=== PATIENT | male | born 1965 | race Caucasian/White ===

== ENCOUNTER 2017-08-22 12:08 | Inpatient (IN) | payer OTHER ==
[~2017-08-22] VITALS: Ht 177.8 cm; Wt 99.8 kg
--- NOTE | 2017-08-22 12:30 | ED GENERAL ADULT ---
History of Present Illness General Chief Complaint: General Adult Stated Complaint: [facility], PT HAS CLL Source: patient, old records Exam Limitations: no limitations Vital Signs & Intake/Output Vital Signs & Intake/Output Vital Signs Date Time Temp Pulse Resp B/P B/P Pulse O2 O2 Flow FiO2 Mean Ox Delivery Rate 08/22 1455 99.1 70 18 138/91 100 Room Air 08/22 1440 98.2 74 16 123/74 100 Room Air 08/22 1308 Room Air 08/22 1214 97.6 85 17 121/77 96 Room Air Allergies Coded Allergies: NO KNOWN ALLERGIES (10/02/13) Reconcile Medications Atorvastatin Calcium 20 MG TABLET 1 TAB PO DAILY CHOLESTEROL (Reported) Losartan Potassium 50 MG TABLET 1 TAB PO DAILY HEART (Reported) Metoprolol Succinate 200 MG TAB.ER.24H 1 TAB PO DAILY HEART (Reported) Triage Note: SENT FROM [facility] BY MD COX FOR H/H .03/17. PER MD COX POSSIBLE HEMOLYTIC ANEMIA. WOULD LIKE STEROIDS STARTED AND TRANSFUSION. Triage Nurses Notes Reviewed? yes Onset: Abrupt Duration: week(s):, getting worse Timing: recent history Injury Environment: home No Modifying Factors: none HPI: 51-year-old male comes into the emergency room sent in by his oncologist Dr. abreu. Patient has a history of CLL. He's been increasingly weak and fatigued. Shortness of breath with any type of exertion. He went to be checked out and was found to be profoundly anemic. He denies any blood in his stool and reports that he checks in a regular basis. Denies any chest pain. Denies any fever chills vomiting. He was sent in for admission and further evaluation. (Haris Stanford) Past History Travel History Traveled to [place] past 21 day No Medical History Any Pertinent Medical History? see below for history Cardiovascular: hypertension, HYPERCHOLESTEROLEMIA Cancer(s): CLL Surgical History Surgical History: non-contributory Psychosocial History What is your primary language American Tobacco Use: Never used Daily Tobacco Use Amount/Type: =< 4 Cigarettes daily ETOH Use: occasional use Illicit Drug Use: denies illicit drug use Family History Hx Contributory? No (Haris Stanford) Review of Systems Review of Systems Constitutional: Reports: see HPI. EENTM: Reports: no symptoms. Respiratory: Reports: see HPI. Cardiovascular: Reports: no symptoms. GI: Reports: no symptoms. Genitourinary: Reports: no symptoms. Musculoskeletal: Reports: no symptoms. Skin: Reports: no symptoms. Neurological/Psychological: Reports: no symptoms. Hematologic/Endocrine: Reports: no symptoms. Immunologic/Allergic: Reports: no symptoms. All Other Systems: Reviewed and Negative (Haris Stanford) Physical Exam Physical Exam General Appearance: well developed/nourished, no apparent distress, alert, awake Head: atraumatic Eyes: Bilateral: normal appearance. Ears, Nose, Throat: normal ENT inspection, hearing grossly normal Neck: normal inspection Respiratory: normal breath sounds, no respiratory distress Cardiovascular: regular rate/rhythm Back: normal inspection Extremities: normal inspection Neurologic/Psych: awake, alert, oriented x 3 Skin: pallor Core Measures ACS in differential dx? No CVA/TIA Diagnosis: No Sepsis Present: No Sepsis Focused Exam Completed? No (Haris Stanford) Progress Differential Diagnoses I considered the following diagnoses in my evaluation of the patient: Hemolytic anemia, anemia of chronic disease, aplastic anemia, GI bleed, iron deficiency anemia, myelodysplastic syndrome Plan of Care: Orders Procedure Date/time Status HEPATIC FUNCTION PANEL 08/23 0600 Active HEPATITIS PANEL 08/23 0600 Active CBC WITHOUT DIFFERENTIAL 08/23 0600 Active CBC WITHOUT DIFFERENTIAL 08/23 0005 Active Heart Healthy Diet 08/22 D Active CULTURE,URINE 08/22 1549 Active SPECIMEN TO BE OBTAINED 08/22 1549 Active LOWER RESPIRATORY CULTURE 08/22 1549 Active BLOOD CULTURE 08/22 1549 Active Pathway - chart 08/22 1503 Active House Staff 08/22 1503 Active Patient Data 08/22 1439 Active ED Holding Orders 08/22 1408 Active Admit to inpatient 08/22 1408 Active Vital Signs 08/22 1408 Active Code Status 08/22 1408 Active BLOOD PRODUCT PICKUP 08/22 1405 Active LEUKOCYTE POOR (PACKED CELLS) 08/22 1336 Active Add-on Test (ER Only) 08/22 1254 Active TOTAL IRON BINDING CAPACITY 08/22 1232 Active RETICULOCYTE COUNT 08/22 1232 Complete LDH (LACT ACID DEHYDROGENASE) 08/22 1232 Active FOLIC ACID 08/22 1232 Active FERRITIN 08/22 1232 Active DIRECT BILIRUBIN 08/22 1232 Active VITAMIN B12 08/22 1232 Active EKG 08/22 1230 Active PARTIAL THROMBOPLASTIN TIME 08/22 1222 Complete PROTHROMBIN TIME 08/22 1222 Complete HAPTOGLOBIN 08/22 1217 Active COMPREHENSIVE METABOLIC PANEL 08/22 121 Active CBC WITHOUT DIFFERENTIAL 08/22 1216 Complete TYPE & SCREEN (NOT X-MATCH) 08/22 1216 Active Lab Add-on Test 08/22 UNK Active VTE Mechanical Prophylaxis 08/22 UNK Active Intake & Output 08/22 UNK Active Current Medications Sig/Sai Start time Last Medication Dose Stop Time Status Admin Atorvastatin Calcium 20 MG DAILY 08/23 1000 AC (Lipitor) Dexamethasone 4 MG DAILY 08/23 1000 AC (Decadron) Losartan Potassium 50 MG DAILY 08/23 1000 AC (Cozaar) Metoprolol Succinate 200 MG DAILY 08/22 1506 AC (Toprol Xl) Laboratory Tests 08/22/17 1232: Anion Gap 15, Estimated GFR > 60, BUN/Creatinine Ratio 13.3, Glucose 114 H, Calcium 9.1, TIBC 334, Ferritin Pending, Total Bilirubin 1.6 H, Direct Bilirubin 0.5 H, AST 68 H, ALT 92 H, Alkaline Phosphatase 223 H, Lactate Dehydrogenase 692 H, Total Protein 5.6 L, Albumin 4.0, Globulin 1.6 L, Albumin/Globulin Ratio 2.5 H, Vitamin B12 Pending, Folate Pending, PT 12.2, INR 1.16, APTT 26, CBC w Diff MAN DIFF ORDERED, RBC 1.62 L, MCV 86.0, MCH 29.9, MCHC 34.7, RDW 13.9, MPV 7.1 L, Gran % 44.4, Lymphocytes % 45.0, Monocytes % 8.6, Eosinophils % 1.7, Basophils % 0.3, Absolute Granulocytes 1.5, Segmented Neutrophils 38 L, Band Neutrophils 6 H, Absolute Lymphocytes 1.5, Lymphocytes 49, Monocytes 4, Absolute Monocytes 0.3, Eosinophils 1, Absolute Eosinophils 0.1 , Absolute Basophils 0, Metamyelocytes 1, Myelocytes 1 H, Platelet Estimate DECREASED, Poikilocytosis 2+, Anisocytosis 2+, Ovalocytes 1+, Retic Count 1.40 08/22/17 1222: Retic Count Cancelled 08/22/17 1217: Haptoglobin Pending, Flow Cytometry Specimen Pending Microbiology 08/22 1549 URINE ROUT: Urine Culture - COLB 08/22 1549 LOWER RESP: Respiratory Culture - COLB 08/22 1549 LOWER RESP: Gram Stain - COLB 08/22 1548 BLOOD: Blood Culture - COLB 08/22 1548 BLOOD: Blood Culture - COLB Initial ED EKG: normal sinus rhythm, rate (75) (Haris Stanford) Departure Departure Disposition: STILL A PATIENT Condition: Stable Clinical Impression Primary Impression: Symptomatic anemia Secondary Impressions: CLL (chronic lymphocytic leukemia) Referrals: Sanjuana CARDONA,Willam Gutierrez (PCP/Family) Departure Forms: Customer Survey General Discharge Information Admission Note Spoke With: Corrie AMAYA,Sonya Langston Documentation of Exam: Documentation of any treatments & extenuating circumstances including Concerns Regarding Discharge (functional status, medication knowledge or non-compliance, living conditions, etc.) that warrant an admission rather than observation: Patient will require multiple blood transfusions. Hematology oncology consultation. IV steroids. He will require further evaluation as to why he so profoundly anemic. (Haris Stanford) PA/FARM EQUIPMENT ENGINE MECHANIC Co-Sign Statement Statement: ED Attending supervision documentation- [x] I saw and evaluated the patient. I have also reviewed all the pertinent lab results and diagnostic results. I agree with the findings and the plan of care as documented in the PA's/FARM EQUIPMENT ENGINE MECHANIC's documentation. [] I have reviewed the ED Record and agree with the PA's/FARM EQUIPMENT ENGINE MECHANIC's documentation. [] Additions or exceptions (if any) to the PAs/FARM EQUIPMENT ENGINE MECHANIC's note and plan are summarized below: [] (Dejuan Alan DO) Critical Care Note Critical Care Note Critical Care Time: 30-74 min (45) (Haris Stanford)
[2017-08-22 12:56] LABS: ABSOLUTE BASOPHIL COUNT 0 /CUMM (0.0-0.2); ABSOLUTE EOSINOPHIL COUNT 0.1 /CUMM (0.0-0.7); ABSOLUTE MONOCYTE COUNT 0.3 /CUMM (0.10-0.60); BASOPHIL % 0.3 % (0.0-2.0)
[2017-08-22 13:01] LABS: ABSOLUTE GRANULOCYTE CT 1.5 /CUMM (1.4-6.5); ABSOLUTE LYMPH COUNT 1.5 /CUMM (1.2-3.4); EOSINOPHIL % 1.7 % (0-5); GRANULOCYTE % 44.4 % (42.2-75.2); MEAN CORPUSCULAR HGB 29.9 PG (27.0-31.0); MEAN CORPUSCULAR HGB CONC 34.7 G/DL (33.0-37.0); MEAN PLATELET VOLUME 7.1 FL (7.4-10.4); PLATELET COUNT 44 /CUMM (130-400); RBC DISTRIBUTION WIDTH 13.9 % (11.5-14.5); RED BLOOD CELL CT 1.62 /CUMM (4.70-6.10); WHITE BLOOD CELL COUNT 3.3 /CUMM (4.8-10.8)
[2017-08-22 13:03] LABS: PT 12.2 SEC (9.4-12.5); PTT 26 SEC (25-37)
[2017-08-22] MEDS ORDERED: LOSARTAN POTASS50 M1 PO (13:03)
[2017-08-22] MEDS ORDERED: METOPROLOL SUC200 M2 PO (13:03)
[2017-08-22] MEDS ORDERED: ATORVASTATIN CA20 M1 PO (13:03)
--- NOTE | 2017-08-22 14:41 | History & Physical ---
ManCarmella 08/22/17 1440: General Information and HPI MD Statement: I have seen and personally examined LAURITA AMIN and documented this H&P. The patient is a 51 year old M who presented with a patient stated chief complaint of []. Source of Information: patient Exam Limitations: no limitations History of Present Illness: Mr. Amin is a 51-year-old male w/ PMH of CLL, HTN, HLD, sent in by his oncologist Dr. Gibbons for increasingly weakness/fatigue. Patient complained of shortness of breath with any type of exertion. He went to be checked out and was found to be profoundly anemic at Hgb 4.7. Patient endorsed his fatigue and exertional dyspnea started about a month ago without known trigger of his memory , and had worsened over the past two weeks that everytime he got upstairs at home he became short of breath. Patient denied fever/night sweat/weight change, dietary/appetite/medication change, new exposure to chemicals/new house/ hazardous chemicals. Patient denied chest Pain/coughing up blood/Palpitation/ Abdominal pain, bowel movement/urinary abnormality/bloody stool/hematuria, or other skin/musculoskeletal/neurological disorders. Of note, patient was diagnosed of CLL 4 years ago, underwent routine chemo by oncologists at [facility] soon after diagnose, and since then was in remission. His stated that patient's Hgb was in 12-14 range from 06/2017. Allergies/Medications Allergies: Coded Allergies: NO KNOWN ALLERGIES (10/02/13) Home Med list Atorvastatin Calcium 20 MG TABLET 1 TAB PO DAILY CHOLESTEROL (Reported) Losartan Potassium 50 MG TABLET 1 TAB PO DAILY HEART (Reported) Metoprolol Succinate 200 MG TAB.ER.24H 1 TAB PO DAILY HEART (Reported) Past History Travel History Traveled to [place] past 21 day No Medical History Cardiovascular: hypertension, HYPERCHOLESTEROLEMIA Cancer(s): CLL Surgical History Surgical History: non-contributory Past Family/Social History Psychosocial History Smoking Status: Current Some Day Smoker ETOH Use: occasional use Illicit Drug Use: denies illicit drug use Review of Systems Review of Systems Constitutional: Reports: see HPI. Exam & Diagnostic Data Last 24 Hrs of Vital Signs/I&O Vital Signs Date Time Temp Pulse Resp B/P B/P Pulse O2 O2 Flow FiO2 Mean Ox Delivery Rate 08/22 1308 Room Air 08/22 1214 97.6 85 17 121/77 96 Room Air Intake & Output 08/22 1600 08/22 0800 08/22 0000 Intake Total Output Total Balance Patient 99.79 kg Weight Weight Reported by Patient Measurement Method Physical Exam General Appearance Alert, Oriented X3, Cooperative, No Acute Distress Skin Pallor HEENT Atraumatic, PERRLA Neck Supple, No JVD Lymphatic Palpable R Axillary lymphnode however non-tender and not firm Cardiovascular Regular Rate Lungs Clear to Auscultation, Normal Air Movement Abdomen Normal Bowel Sounds, Soft, No Tenderness Neurological Normal Speech, Strength at 5/5 X4 Ext Extremities No Cyanosis, No Edema, Normal Pulses Last 24 Hrs of Labs/Suhail: Laboratory Tests 08/22/17 1232: Anion Gap 15, Estimated GFR > 60, BUN/Creatinine Ratio 13.3, Glucose 114 H, Calcium 9.1, TIBC 334, Ferritin > 1000.0 H, Total Bilirubin 1.6 H, AST 68 H, ALT 92 H, Alkaline Phosphatase 223 H, Lactate Dehydrogenase 692 H, Total Protein 5.6 L, Albumin 4.0, Globulin 1.6 L, Albumin/Globulin Ratio 2.5 H, PT 12.2, INR 1.16, APTT 26, CBC w Diff MAN DIFF ORDERED, RBC 1.62 L, MCV 86.0, MCH 29.9, MCHC 34.7, RDW 13.9, MPV 7.1 L, Gran % 44.4, Lymphocytes % 45.0, Monocytes % 8.6, Eosinophils % 1.7, Basophils % 0.3, Absolute Granulocytes 1.5, Segmented Neutrophils 38 L, Band Neutrophils 6 H, Absolute Lymphocytes 1.5, Lymphocytes 49, Monocytes 4, Absolute Monocytes 0.3, Eosinophils 1, Absolute Eosinophils 0.1, Absolute Basophils 0, Metamyelocytes 1, Myelocytes 1 H, Platelet Estimate DECREASED, Poikilocytosis 2+, Anisocytosis 2+, Ovalocytes 1+, Retic Count 1.40 08/22/17 1222: Retic Count Cancelled 08/22/17 1217: Haptoglobin Pending Assessment/Plan Assessment: Mr. Amin is a 51-year-old male w/ PMH of CLL, HTN, HLD, sent in by his oncologist Dr. Gibbons for increasingly weakness/fatigue. Patient complained of shortness of breath with any type of exertion. He went to be checked out and was found to be profoundly anemic at Hgb 4.7. Patient endorsed his fatigue and exertional dyspnea started about a month ago without known trigger of his memory , and had worsened over the past two weeks that everytime he got upstairs at home he became short of breath. Patient denied fever/night sweat/weight change, dietary/appetite/medication change, new exposure to chemicals/new house/ hazardous chemicals. Patient denied chest Pain/coughing up blood/Palpitation/ Abdominal pain, bowel movement/urinary abnormality/bloody stool/hematuria, or other skin/musculoskeletal/neurological disorders. Of note, patient was diagnosed of CLL 4 years ago, underwent routine chemo by oncologists at [facility] soon after diagnose, and since then was in remission. His stated that patient's Hgb was in 12-14 range from 06/2017. On presentation: Vitals stable -CBC: WBC 3.3, RBC 1.62, H/H 4.9/14.0, PLT 44, Retic 1.40 -BMP: AST/ALT 68/92, ALkPhos 223, LDH 692, TBili 1.6, Direct Bili 0.5 -Misc: B12/Folate pending -EKG: Normal sinus rhythm without significant ST-T abnormalities. -Interventions in ER: Solumedrol 125mg Assessement: Mr. Amin is a 51-year-old male w/ PMH of CLL, HTN, HLD, sent in by his oncologist Dr. Gibbons for increasingly weakness/fatigue. Patient complained of shortness of breath with any type of exertion. He went to be checked out and was found to be profoundly anemic at Hgb 4.7. Patient's CBC showed pancytopenia with WBC 3.3, RBC 1.62, H/H 4.9/14.0, PLT 44, with retic count of 1.4 signaling no bone marrow stimulation, despite LDH was elevated to 692 which represented possible common complication of Autoimmune hemolytic anemia from CLL. Aplastic anemia with unclear etiology could also contribute to the pancytopenia. Patient currently had no signs of infection. Iron level WNL, pending B12/Folate. PT/INR WNL no sign of DIC. Patient's pancytopenia could be multifactorial including hemolytic anemia, and possibly other underlying disease. Problem list #Symptomatic Pancytopenia with unclear etiology #Transaminitis #Hx of HTN, HLD Plan - Admit to Gen Med - Continue PRBC 2U transfusion, target Hgb >7 - Recheck CBC tonight and in the AM - Continued home meds including Metoprolol, Losartan, Lipitor - Lab add-on including B12/Folate/Haptoglobin/hepatitis panel. - Pending Hemonc consult. - Panculture if spikes fever DVT prophylaxis ALPS Regular Diet Full Code As Ranked By This Provider Problem List: 1. CLL (chronic lymphocytic leukemia) 2. Symptomatic anemia Core Measures/Misc (03/20) Acute Coronary Syndrome ACS Diagnosis: No Congestive Heart Failure Congestive Heart Failure Diagnosis No Cerebrovascular Accident CVA/TIA Diagnosis: No VTE (View Protocol) VTE Risk Factors Age>40 No Mechanical VTE Prophylaxis d/t N/A MechProphylax Ordered No VTE Pharm Prophylaxis d/t NA PharmProphylax ordered Sepsis (View protocol) Sepsis Present: No Todd Aranda MD 08/22/17 1540: Resident Review Statement Resident Statement: examined this patient, discussed with university intern, agreed with university intern, discussed with family, reviewed EMR data (avail), discussed with nursing , discussed with case mgmt, reviewed images, amended to note Other Findings: 51-year-old male with past medical history of CLL in remission after chemo who follows Dr. Herberth Reyna, hypertension, hyperlipidemia, was sent in by his oncologist (Dr Kevin) to the emergency department after finding a low hemoglobin during office visit. According to the patient, he has been having gradual shortness of breath since a month, which worsened since past 2 weeks, which made him follow-up with his oncologist today, and was found to have severe anemia and was sent in to the ED. Patient denies any ongoing blood loss, black stool, hemodialysis, hematemesis, hematuria, bruises, joint swelling, trauma, fever, chills, sick contacts, abdominal pain, chest pain, palpitations, dizziness, lightheadedness, yellowish discoloration of skin, rashes, but admits to looking pale, and leg swelling that he has had it since a while. He is compliant with his medications, no new changes, offers no allergy history either. He did try herbal medication that also contain melatonin yesterday and 2 weeks prior to that but his history seems to have started much earlier than that. Vitals on presentation were stable, H&H was low at 4.9/14.0, leukopenia at 3.3, platelet low at 44, with 7 bands, reticulocyte count 1.4, LDH 692, total bilirubin 1.6, direct 0.5, AST/ALT 68/92, ALP 223, vitamin B12 and folate pending, PT 12.2/INR 1.16, APTT 26. No imaging done. EKG shows sinus rhythm, no signs of ischemia, arrhythmia, no tachycardia. Physical examination was significant for obese individual, not in distress, chest clear, didn't appreciate pallor, no jaundice either, border of liver was palpated 1 cm below right subcostal margin, and tip of spleen palpable on the left side, a small soft tissue lump/? Lymph node palpable over the right inguinal region, and rest of the examination within normal limits. He received 125 mg of IV Solu-Medrol in the ED and 2 units of PRBC has been ordered, currently ongoing the first one during the time of interview. He is to be admitted in the general medical floor for the management of following issues: #Acute severe symptomatic anemia, ? Cause Patient has features of pancytopenia, with inappropriate response to anemia given his vertex of 1.4, suggestive of some degree of bone marrow suppression. Also considering his total bilirubin of 1.6 with high LDH, he is likely having some degree of hemolysis. He is receiving 2 units of PRBC currently, after which we will check his H&H again with a target of 7 and transfuse if needed. He also received IV steroids in line of any autoimmune conditions, will continue steroids orally after talking to his oncologist. While considering the above differentials, we also need to make sure that the patient does not have any underlying infections that also could present as pancytopenia the ascending panculture. Of note, patient does not have any hemodynamic instability, signs of acute bleeding, or DIC. Hematology/oncology consultation placed, will follow recs. #Transaminitis, ?cause Looking back at his [place], he has had elevated liver enzymes in the past as well, not sure if this is entirely related to hemodialysis at this time. We will repeat the test tomorrow and also get hepatitis panel in the meantime. #Hypertension Will continue home medications #Hyperlipidemia We will continue home medication DVT prophylaxis mechanical only given his low platelet Heart healthy diet Full code. Malik Gaona 08/22/17 1540: Attending MD Review Statement Attending Statement Attending MD Statement: examined this patient, discuss w/resident/PA/SOCIOLOGY ADJUNCT INSTRUCTOR, agreed w/resident/PA/SOCIOLOGY ADJUNCT INSTRUCTOR, discussed with family, reviewed EMR data (avail), discussed with nursing, discussed with case mgmt, reviewed images, amended to note Attending Assessment/Plan: 51 o/m with pmh of cll, htn sent from hematology office after abnormal labs low hb with progressive fatigue and shortness of breath on exertion. Patient denies light headedness, fever, chills, no abdominal pain, no blood in stools, no cough , no lymphadenopathy, no recent travel. PE unremarkable, pale appearing male not in acute distress. Labs WBC 3.3 Hb 4.9/14.8 plt 44 Cr 1.2 BUN 16 INR 1.16 LDH 692 Bili 1.6 retics 1.4 ASSESSMENT AND PLAN 51 o/m with pmh of cll comes with symptomatic anemia with Pancytopenia and mild transaminitis with mild hyperbilirubinemia and normal retics. Patient admitted to inpatient medical serivces. Transfuse 1 unit of prbc, Consult hemtaology/ oncology. Panculture if spikes fever, PBS for blasts, vit b12 level and folate level, check serologies hep b and hep c. Avoid medications depress bone marrow function. gi/dvt prophyalxis full code.
--- NOTE | 2017-08-22 18:09 | Cons- Hematology ---
General Information and HPI Consulting Request Date of Consult: 08/22/17 Requested By: Malik Gaona MD Reason for Consult: Pancytopenia, CLL Source of Information: patient, old records Exam Limitations: no limitations History of Present Illness: Mr. Nichols is a 51-year-old male with CLL status post FCR therapy completed in February 2014 who presented to the hospital after being seen in clinic today. He was seen in clinic for follow-up for his CLL. He was noted to have severe fatigue and dyspnea with exertion for approximately 2 weeks. He has no new pain. He denies any significant chest pain. He denies any new lumps or bumps. His appetite is about the same. He has no fever or chills. He has no recent sickness. He denies any nausea or vomiting. He has no diarrhea. He feels generally well except for the fatigue and dyspnea with exertion. On presentation to the clinic today, he was noted to be pale. Blood work was obtained and revealed a hemoglobin of 4.9 with hematocrit of 40.3. Platelet count was 39,000. WBC was 3.6. His actual dysuria count was 1500. He had 1.9% immature granulocytes. Due to the dyspnea with exertion and pancytopenia, he was sent to the hospital for recent and management. On presentation to the hospital, blood work demonstrated WBC of 3.3, hemoglobin of 4.9, hematocrit of 40.0, and platelet count of 44,000. His creatinine was notable for 1.2. His bilirubin was 1.6. AST was 68. ALT was 92. Alk phosphatase was 223. LDH was 692. He had one metamyelocyte. Reticulocyte count was 1.4. He was given a dose of Solu-Medrol 125 mg. He was started on transfusion. He tolerated his first unit of packed RBC well without any symptoms. He has no fever or chills. He feels better currently. He is anxious about his overall diagnosis. Allergies/Medications Allergies: Coded Allergies: NO KNOWN ALLERGIES (10/02/13) Home Med List: Atorvastatin Calcium 20 MG TABLET 1 TAB PO DAILY CHOLESTEROL (Reported) Losartan Potassium 50 MG TABLET 1 TAB PO DAILY HEART (Reported) Metoprolol Succinate 200 MG TAB.ER.24H 1 TAB PO DAILY HEART (Reported) Current Medications: Current Medications Sig/Sai Start time Last Medication Dose Route Stop Time Status Admin Atorvastatin Calcium 20 MG DAILY 08/23 1000 AC PO Dexamethasone 4 MG DAILY 08/23 1000 AC PO Losartan Potassium 50 MG DAILY 08/23 1000 AC PO Methylprednisolone 0 .STK-MED ONE 08/22 1414 DC .ROUTE Methylprednisolone 125 MG ONCE ONE 08/22 1400 DC 08/22 IV 08/22 1401 1409 Metoprolol Succinate 200 MG DAILY 08/22 1506 AC PO Review of Systems Review of Systems Constitutional: Reports: malaise. Denies: chills, fever, weakness, unexplained weight loss. EENTM: Denies: blurred vision, double vision. Cardiovascular: Denies: chest pain, orthopena, palpitations. Respiratory: Reports: short of breath. GI: Denies: melena, bloody stool. Genitourinary: Denies: discharge, dysuria. Neurological/Psychological: Reports: anxiety. Denies: ataxia, confusion. Hematologic/Endocrine: Denies: bruising, bleeding. All Other Systems: Reviewed and Negative Past History Travel History Traveled to [place] past 21 day No Medical History Cardiovascular: hypertension, HYPERCHOLESTEROLEMIA Cancer(s): CLL Surgical History Surgical History: non-contributory Psychosocial History Smoking Status: Current Some Day Smoker ETOH Use: occasional use Illicit Drug Use: denies illicit drug use Exam & Diagnostic Data Vital Signs and I&O Vital Signs Date Time Temp Pulse Resp B/P B/P Pulse O2 O2 Flow FiO2 Mean Ox Delivery Rate 08/22 1745 98.9 77 16 126/82 100 Room Air 08/22 1455 99.1 70 18 138/91 100 Room Air 08/22 1440 98.2 74 16 123/74 100 Room Air 08/22 1308 Room Air 08/22 1214 97.6 85 17 121/77 96 Room Air Intake & Output 08/22 1600 08/22 0800 08/22 0000 Intake Total 500 Output Total Balance 500 Intake, Oral 500 Patient 99.79 kg Weight Weight Reported by Patient Measurement Method Physical Exam General Appearance: well developed/nourished, no apparent distress, alert, awake , anxious, comfortable, slightly pale Head: atraumatic, normal appearance Eyes: Bilateral: PERRL, EOMI. Ears, Nose, Throat: normal pharynx Neck: supple, full neck Respiratory: normal breath sounds, chest non-tender, no respiratory distress, quiet respiration Cardiovascular: regular rate/rhythm Gastrointestinal: normal bowel sounds, soft, non-tender, splenomegaly Extremities: no edema Neurologic/Psych: awake, alert, oriented x 3 Skin: normal color, warm/dry Last 48 Hours of Lab Results: Laboratory Tests 08/22 08/22 08/22 1232 1222 1217 Chemistry Sodium (137 - 145 mmol/L) 142 Potassium (3.5 - 5.1 mmol/L) 4.0 Chloride (98 - 107 mmol/L) 103 Carbon Dioxide (22 - 30 mmol/L) 24 Anion Gap (5 - 16) 15 BUN (9 - 20 mg/dL) 16 Creatinine (0.7 - 1.2 mg/dL) 1.2 Estimated GFR (>60 ml/min) > 60 BUN/Creatinine Ratio (7 - 25 %) 13.3 Glucose (65 - 99 mg/dL) 114 H Calcium (8.4 - 10.2 mg/dL) 9.1 TIBC (261 - 462 ug/dL) 334 Ferritin (17.9 - 464 ng/mL) Pending Total Bilirubin (0.2 - 1.3 mg/dL) 1.6 H Direct Bilirubin (< 0.4 mg/dL) 0.5 H AST (17 - 59 U/L) 68 H ALT (21 - 72 U/L) 92 H Alkaline Phosphatase (< 127 U/L) 223 H Lactate Dehydrogenase (313 - 618 U/L) 692 H Total Protein (6.3 - 8.2 g/dL) 5.6 L Albumin (3.5 - 5.0 g/dL) 4.0 Globulin (1.9 - 4.2 gm/dL) 1.6 L Albumin/Globulin Ratio (1.1 - 2.2 %) 2.5 H Vitamin B12 (239 - 931 pg/mL) Pending Folate (2.76 - 20.0 ng/mL) Pending Coagulation PT (9.4 - 12.5 SEC) 12.2 INR (0.90 - 1.17) 1.16 APTT (25 - 37 SEC) 26 Hematology CBC w Diff MAN DIFF ORDERED WBC (4.8 - 10.8 /CUMM) 3.3 L RBC (4.70 - 6.10 /CUMM) 1.62 L Hgb (14.0 - 18.0 G/DL) 4.9 *L Hct (42 - 52 %) 14.0 *L MCV (80.0 - 94.0 FL) 86.0 MCH (27.0 - 31.0 PG) 29.9 MCHC (33.0 - 37.0 G/DL) 34.7 RDW (11.5 - 14.5 %) 13.9 Plt Count (130 - 400 /CUMM) 44 L MPV (7.4 - 10.4 FL) 7.1 L Gran % (42.2 - 75.2 %) 44.4 Lymphocytes % (20.5 - 51.1 %) 45.0 Monocytes % (1.7 - 9.3 %) 8.6 Eosinophils % (0 - 5 %) 1.7 Basophils % (0.0 - 2.0 %) 0.3 Absolute Granulocytes (1.4 - 6.5 /CUMM) 1.5 Segmented Neutrophils (42.2 - 75.2 %) 38 L Band Neutrophils (0.0 - 5.0 %) 6 H Absolute Lymphocytes (1.2 - 3.4 /CUMM) 1.5 Lymphocytes (20.5 - 51.1 %) 49 Monocytes (1.7 - 9.3 %) 4 Absolute Monocytes (0.10 - 0.60 /CUMM) 0.3 Eosinophils (0 - 5.0 %) 1 Absolute Eosinophils (0.0 - 0.7 /CUMM) 0.1 Absolute Basophils (0.0 - 0.2 /CUMM) 0 Metamyelocytes (0.0 - 1.0 %) 1 Myelocytes (0 - 0 %) 1 H Platelet Estimate (ADEQUATE) DECREASED Poikilocytosis 2+ Anisocytosis 2+ Ovalocytes 1+ Retic Count (0.5 - 2.0 %) 1.40 Cancelled Haptoglobin Pending Miscellaneous Flow Cytometry Specimen Pending Assessment/Plan Assessment: Mr. Nichols is a 51-year-old with CLL status post FCR completed in February 2014 and in remission who presented today hospital after being seen in the cancer center clinic. He was noted to have severe anemia and thrombocytopenia. Overall, he had pancytopenia. Bloodwork demonstrated bilirubin of 1.6, creatinine of 1.2, slightly elevated AST and ALT, elevated alkaline phosphatase, elevated LDH, hemoglobin of 4.9, hematocrit of 14.0, plateletcount of 44,000, white count of 3300, and reticulocyte count of 1.4%. This suggests less likely a hemolytic process. One would expect the reticulocyte count to be elevated and elevated bilirubin. This may not be related to his CLL but a second process. I have recommended checking flow cytometry. This is pending for now. He is given 2 units of packed RBC and will be follow-up by bloodwork. He may need a bone marrow biopsy pending today blood work tomorrow. Patient is very anxious about bone marrow biopsy. It will be reasonable to obtain a CT scan of the chest, abdomen, and pelvis to further workup organomegaly, lymphadenopathy, and overall disease status. I have reviewed his peripheral blood smear and demonstrated no evidence of intracellular organism. He does have some rouleaux formation. He has decreased RBC. He should continue on the dexamethasone for now. 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 Although this is usually reported as rapidly increasing lymph nodes and WBC. His WBC is low at the moment. He may have a secondary marrow process. He has no signs or symptoms of infection. Bone marrow biopsy may be useful in this situration. Recommendations: Pancytopenia: -Transfuse with packed RBC 2 hemoglobin greater than 7.0 -Continue dexamethasone 40 mg daily -Obtain bone marrow biopsy if pancytopenia is persistent -Follow up flow cytometry -Follow up haptoglobin -Check EDGARD CLL: -Obtain CT scan of the chest/abdomen/pelvis with contrast Problem List: 1. CLL (chronic lymphocytic leukemia) 2. Symptomatic anemia 3. Pancytopenia Other Findings/Comments: Please call [phone] with any questions or concerns. Consult Acknowledgment - Thank you for your consult request.
[2017-08-22 19:00] VITALS: BP 122/78
[2017-08-22 20:00] VITALS: BP 125/88
--- NOTE | 2017-08-22 23:25 | CT SCAN REPORT ---
EXAMINATION: CT CHEST WITH CONTRAST CT ABDOMEN AND PELVIS WITH CONTRAST CLINICAL INFORMATION: Severe anemia. CLL COMPARISON: 10/11/2014 TECHNIQUE: Multidetector volumetric imaging was performed through the chest, abdomen and pelvis following the administration of 95 mL of Optiray 320 intravenous contrast. Sagittal and coronal reformatted images were obtained on the technologist's workstation. Axial MIP volume rendering provided. DLP: 972 mGy-cm. FINDINGS: CHEST: Lungs: The central airways are patent. Minimal reticular opacity at the right base favoring atelectasis. No dense consolidation. No pneumothorax. No pleural effusion. Mediastinum: The heart is at the upper limit of normal in size. Coronary artery calcifications are present. There is diffuse mediastinal, hilar, and peribronchial lymphadenopathy. This is significantly increased from prior. For instance, a subcarinal node measures 2.9 x 1.8 cm on series 2 image 32. Chest Wall/Axilla: Extensive bilateral axillary lymphadenopathy. This is significantly increased from prior. Extensive supraclavicular adenopathy extending into the neck. For instance a right axillary node measures 4.6 x 2.9 cm on series 2 image 18. ABDOMEN/PELVIS: Liver, Gallbladder, Biliary Tree: The liver is normal in size, shape, and attenuation. No focal hepatic lesion or biliary ductal dilatation is present. The gallbladder is unremarkable with no evidence of radiopaque gallstones, gallbladder wall thickening, or pericholecystic inflammatory changes. Pancreas: Unremarkable. Spleen: The spleen is enlarged, measuring 17 cm in AP dimension, compared to 13.8 cm on prior. It measures 15 cm in CC dimension. No focal splenic parenchymal lesion. Adrenal Glands: Unremarkable. Kidneys and Ureters: The kidneys are normal in size, shape, and attenuation. No hydronephrosis, hydroureter or calculi seen. No perinephric stranding. Bladder: Mass effect upon the bladder by bulky pelvic adenopathy. No focal bladder wall abnormality. Gastrointestinal Tract: The stomach is unremarkable. The small bowel is normal in caliber. No obstruction. No colonic wall thickening or inflammatory change. Colonic diverticulosis without diverticulitis. The appendix is unremarkable. Abdominal Wall: No hernia is demonstrated. Lymphovascular Structures: Lymph nodes: There is diffuse increased lymphadenopathy. Bulky retroperitoneal and central mesenteric adenopathy is noted. Prominent pelvic sidewall lymph nodes. For instance, there is a right iliac chain node which measures 5 x 3 cm. This contributes to the deformity of the bladder. Vascular: Unremarkable. Pelvic Viscera: The prostate and seminal vesicles are unremarkable. OSSEOUS STRUCTURES: No suspicious sclerotic or lytic bone lesions are identified. IMPRESSION: Extensive lymphadenopathy which is increased from prior. This is seen throughout the course of the study, extending from the supraclavicular region through the inguinal regions. The appearance is suspicious for lymphoma. Mild splenomegaly.
[2017-08-23 00:59] LABS: ABSOLUTE BASOPHIL COUNT 0 /CUMM (0.0-0.2); ABSOLUTE EOSINOPHIL COUNT 0 /CUMM (0.0-0.7); ABSOLUTE MONOCYTE COUNT 0.2 /CUMM (0.10-0.60); MEAN CORPUSCULAR HGB 29.8 PG (27.0-31.0)
[2017-08-23 01:11] LABS: ABSOLUTE GRANULOCYTE CT 2.8 /CUMM (1.4-6.5); BASOPHIL % 0.3 % (0.0-2.0); EOSINOPHIL % 0.8 % (0-5); GRANULOCYTE % 47.1 % (42.2-75.2); MEAN CORPUSCULAR HGB CONC 34.6 G/DL (33.0-37.0); MEAN CORPUSCULAR VOLUME 86.2 FL (80.0-94.0); MEAN PLATELET VOLUME 7.6 FL (7.4-10.4); PLATELET COUNT 52 /CUMM (130-400); RBC DISTRIBUTION WIDTH 14.2 % (11.5-14.5)
[2017-08-23 01:15] LABS: RED BLOOD CELL CT 2.19 /CUMM (4.70-6.10)
[2017-08-23 01:17] LABS: HEMATOCRIT 18.9 % (42-52)
[2017-08-23 02:45] VITALS: BP 126/84
[2017-08-23 03:15] VITALS: BP 128/88
[2017-08-23 06:20] VITALS: BP 130/84
[2017-08-23 07:51] LABS: ABSOLUTE BASOPHIL COUNT 0 /CUMM (0.0-0.2); ABSOLUTE EOSINOPHIL COUNT 0 /CUMM (0.0-0.7); ABSOLUTE GRANULOCYTE CT 2.8 /CUMM (1.4-6.5); ABSOLUTE LYMPH COUNT 2.7 /CUMM (1.2-3.4); ABSOLUTE MONOCYTE COUNT 0.4 /CUMM (0.10-0.60); BASOPHIL % 0.3 % (0.0-2.0); EOSINOPHIL % 0.3 % (0-5); GRANULOCYTE % 47.2 % (42.2-75.2); MEAN CORPUSCULAR HGB 30.2 PG (27.0-31.0); MEAN CORPUSCULAR HGB CONC 34.8 G/DL (33.0-37.0); MEAN PLATELET VOLUME 7.2 FL (7.4-10.4); PLATELET COUNT 48 /CUMM (130-400); RBC DISTRIBUTION WIDTH 14.3 % (11.5-14.5); RED BLOOD CELL CT 2.14 /CUMM (4.70-6.10); WHITE BLOOD CELL COUNT 5.9 /CUMM (4.8-10.8)
--- NOTE | 2017-08-23 08:00 | PN- Housestaff ---
Carmella Man Ovidio Romulo 08/23/17 0800: Subjective Follow-up For: #Symptomatic Pancytopenia with unclear etiology #Hx of CLL #Extensive Lymphadenopathy #Transaminitis #Hx of HTN, HLD Subjective: No overnight event. Patient was seen by Dr. Gibbons this morning as well and acknowledged the CT results. Offered no complaint of SOB/lightheadedness, and could walk around without dyspnea, but was concerned about the potential bone/ lymphnode biopsy procedures. Review of Systems Constitutional: Reports: see HPI. Objective Last 24 Hrs of Vital Signs/I&O Vital Signs Date Time Temp Pulse Resp B/P B/P Pulse O2 O2 Flow FiO2 Mean Ox Delivery Rate 08/23 0833 68 130/84 08/23 0832 68 130/84 08/23 0620 98.3 68 20 130/84 96 Room Air 08/22 2000 98.7 76 18 125/88 100 Room Air 08/22 1900 99.3 78 48 122/78 98 Room Air 08/22 1819 98.7 69 17 123/84 97 Room Air 08/22 1757 77 126/84 08/22 1745 98.9 77 16 126/82 100 Room Air 08/22 1455 99.1 70 18 138/91 100 Room Air 08/22 1440 98.2 74 16 123/74 100 Room Air 08/22 1308 Room Air 08/22 1214 97.6 85 17 121/77 96 Room Air Intake & Output 08/23 1600 08/23 0800 08/23 0000 Intake Total 350 Output Total Balance 350 Intake, Oral 350 Patient 99.79 kg Weight Weight Reported by Patient Measurement Method Physical Exam General Appearance: Alert, Oriented X3, Cooperative, No Acute Distress Lymphatic: R axillary prominent lymph node soft and enlarged Cardiovascular: Regular Rate Lungs: Clear to Auscultation, Normal Air Movement Abdomen: Soft, No Tenderness Current Medications: Current Medications Sig/Sai Start time Last Medication Dose Route Stop Time Status Admin Atorvastatin Calcium 20 MG DAILY 08/23 1000 AC 08/23 PO 0833 Dexamethasone 4 MG DAILY 08/23 1000 CAN PO Dexamethasone 40 MG DAILY 08/23 1000 AC PO Dexamethasone 4 MG DAILY 08/23 1000 DC PO Influenza Virus 0.5 ML ONCE ONE 08/22 1929 DC Vaccine IM 08/22 1930 Losartan Potassium 50 MG DAILY 08/23 1000 AC 08/23 PO 0833 Methylprednisolone 0 .STK-MED ONE 08/22 1414 DC .ROUTE Methylprednisolone 125 MG ONCE ONE 08/22 1400 DC 08/22 IV 08/22 1401 1409 Metoprolol Succinate 200 MG DAILY 08/22 1506 AC 08/23 PO 0832 Last 24 Hrs of Lab/Suhail Results Last 24 Hrs of Labs/Mics: Laboratory Tests 08/23/17 0844: CBC w Diff Pending, WBC Pending, RBC Pending, Hgb Pending, Hct Pending, MCV Pending, MCH Pending, MCHC Pending, RDW Pending, Plt Count Pending, MPV Pending 08/23/17 0705: Total Bilirubin 1.4 H, Direct Bilirubin 0.3, AST 38, ALT 65, Alkaline Phosphatase 177 H, Total Protein 4.7 L, Albumin 3.5, CBC w Diff MAN DIFF ORDERED, RBC 2.14 L, MCV 87.0, MCH 30.2, MCHC 34.8, RDW 14.3, MPV 7.2 L, Gran % 47.2, Lymphocytes % 45.0, Monocytes % 7.2, Eosinophils % 0.3, Basophils % 0.3, Absolute Granulocytes 2.8, Segmented Neutrophils 50, Band Neutrophils 4, Absolute Lymphocytes 2.7, Lymphocytes 42, Absolute Monocytes 0.4, Eosinophils 1, Absolute Eosinophils 0, Basophils 1, Absolute Basophils 0, Metamyelocytes 2 H, Platelet Estimate DECREASED, Normocytic RBCs VERIFIED, Normochromic RBCs VERIFIED, Hepatitis A IgM Ab Pending, Hep Bs Antigen Pending, Hep B Core IgM Ab Conf Pending, Hepatitis C Antibody Pending 08/23/17 0015: CBC w Diff NO MAN DIFF REQ, RBC 2.19 L, MCV 86.2, MCH 29.8, MCHC 34.6, RDW 14.2 , MPV 7.6, Gran % 47.1, Lymphocytes % 49.2, Monocytes % 2.6, Eosinophils % 0.8, Basophils % 0.3, Absolute Granulocytes 2.8, Absolute Lymphocytes 3.0, Absolute Monocytes 0.2, Absolute Eosinophils 0, Absolute Basophils 0 08/22/17 1232: Anion Gap 15, Estimated GFR > 60, BUN/Creatinine Ratio 13.3, Glucose 114 H, Calcium 9.1, TIBC 334, Ferritin 1160.0 H, Total Bilirubin 1.6 H, Direct Bilirubin 0.5 H, AST 68 H, ALT 92 H, Alkaline Phosphatase 223 H, Lactate Dehydrogenase 692 H, Total Protein 5.6 L, Albumin 4.0, Globulin 1.6 L, Albumin/Globulin Ratio 2.5 H, Vitamin B12 618, Folate 15.0, PT 12.2, INR 1.16, APTT 26, CBC w Diff MAN DIFF ORDERED, RBC 1.62 L, MCV 86.0, MCH 29.9, MCHC 34.7 , RDW 13.9, MPV 7.1 L, Gran % 44.4, Lymphocytes % 45.0, Monocytes % 8.6, Eosinophils % 1.7, Basophils % 0.3, Absolute Granulocytes 1.5, Segmented Neutrophils 38 L, Band Neutrophils 6 H, Absolute Lymphocytes 1.5, Lymphocytes 49, Monocytes 4, Absolute Monocytes 0.3, Eosinophils 1, Absolute Eosinophils 0.1 , Absolute Basophils 0, Metamyelocytes 1, Myelocytes 1 H, Platelet Estimate DECREASED, Poikilocytosis 2+, Anisocytosis 2+, Ovalocytes 1+, Retic Count 1.40 08/22/17 1222: Retic Count Cancelled 08/22/17 1217: Haptoglobin Pending, Flow Cytometry Specimen Pending Microbiology 08/22 2355 URINE ROUT: Urine Culture - RECD 08/22 1549 LOWER RESP: Respiratory Culture - COLB 08/22 1549 LOWER RESP: Gram Stain - COLB Assessment/Plan Assessment: Mr. Nichols is a 51-year-old male w/ PMH of CLL, HTN, HLD, sent in by his oncologist Dr. Gibbons for increasingly weakness/fatigue. Patient complained of shortness of breath with any type of exertion. He went to be checked out and was found to be profoundly anemic at Hgb 4.7. Patient endorsed his fatigue and exertional dyspnea started about a month ago without known trigger of his memory , and had worsened over the past two weeks that everytime he got upstairs at home he became short of breath. Patient denied fever/night sweat/weight change, dietary/appetite/medication change, new exposure to chemicals/new house/ hazardous chemicals. Patient denied chest Pain/coughing up blood/Palpitation/ Abdominal pain, bowel movement/urinary abnormality/bloody stool/hematuria, or other skin/musculoskeletal/neurological disorders. Of note, patient was diagnosed of CLL 4 years ago, underwent routine chemo by oncologists at [facility] soon after diagnose, and since then was in remission. His stated that patient's Hgb was in 12-14 range from 06/2017. On presentation: Vitals stable -CBC: WBC 3.3, RBC 1.62, H/H 4.9/14.0, PLT 44, Retic 1.40 -BMP: AST/ALT 68/92, ALkPhos 223, LDH 692, TBili 1.6, Direct Bili 0.5 -Misc: B12/Folate pending -EKG: Normal sinus rhythm without significant ST-T abnormalities. -Interventions in ER: Solumedrol 125mg Assessement: Mr. Nichols is a 51-year-old male w/ PMH of CLL, HTN, HLD, sent in by his oncologist Dr. Gibbons for increasingly weakness/fatigue. Patient complained of shortness of breath with any type of exertion. He went to be checked out and was found to be profoundly anemic at Hgb 4.7. Patient's CBC showed pancytopenia with WBC 3.3, RBC 1.62, H/H 4.9/14.0, PLT 44, with retic count of 1.4 signaling no bone marrow stimulation, despite LDH was elevated to 692 which represented possible common complication of Autoimmune hemolytic anemia from CLL. Aplastic anemia with unclear etiology could also contribute to the pancytopenia. Patient currently had no signs of infection. Iron level WNL, pending B12/Folate. PT/INR WNL no sign of DIC. Patient's pancytopenia could be multifactorial including hemolytic anemia, and possibly other underlying disease. Problem list #Symptomatic Pancytopenia with unclear etiology - Hgb on admission 4.7 -> 6.5 on latest lab s/p PRBC transfusion 3U. #Hx of CLL - Appreciated Hemonc consult however would pursue on bone/lymphnode biopsy as below #Extensive Lymphadenopathy - CT Chest/Ab/Pelvis 08/22: Extensive lymphadenopathy which is increased from prior. This is seen throughout the course of the study, extending from the supraclavicular region through the inguinal regions. The appearance is suspicious for lymphoma. Mild splenomegaly. - Will proceed with IR guided R axillary Lymp Node Core biopsy + Bone marrow biopsy. - Pending Haptoglobin #Transaminitis - Pending Hepatitis panel #Hx of HTN, HLD - Continued home meds including Metoprolol, Losartan, Lipitor - Panculture if spikes fever DVT prophylaxis ALPS Regular Diet Full Code Problem List: 1. Diffuse lymphadenopathy 2. CLL (chronic lymphocytic leukemia) 3. Pancytopenia Pain Ratin Pain Location: NA Pain Goal: Remain pain free Pain Plan: see AP Tomorrow's Labs & Rationales: CBC/BEP Malik Gaona 08/23/17 1121: Attending MD Review Statement Attending Statement Attending MD Statement: examined this patient, discuss w/resident/PA/HEAVY LIFT RIGGER, agreed w/resident/PA/HEAVY LIFT RIGGER, discussed with family, reviewed EMR data (avail), discussed with nursing, discussed with case mgmt, reviewed images, amended to note Attending Assessment/Plan: 51 o/m with pmh of cll, htn sent from hematology office after abnormal labs low hb with progressive fatigue and shortness of breath on exertion. Patient denies light headedness, fever, chills, no abdominal pain, no blood in stools, no cough , no lymphadenopathy, no recent travel. PE unremarkable, pale appearing male not in acute distress. Patient seen/examined bedside. denies any new complaints. hb better today CT abd/pelvis with lymphadenopathy increased burden. ASSESSMENT AND PLAN 51 o/m with pmh of cll comes with symptomatic anemia with Pancytopenia and mild transaminitis with mild hyperbilirubinemia and normal retics. Patient admitted to inpatient medical serivces. Transfused 2 unit of prbc, f/u hemtaology/ oncology. Plan for IR guided bone marrow biopsy /LN biopsy. Panculture if spikes fever, Avoid medications depress bone marrow function. gi/dvt prophyalxis full code.
--- NOTE | 2017-08-23 08:04 | PN- Hematology ---
Subjective Subjective: He feels better this morning. He has more energy. He has no fever ro chills. He has no nausea or vomiting. He denies any diarrhea. Review of Systems Constitutional: Denies: chills, fever, weakness. Cardiovascular: Denies: chest pain. Gastrointestinal: Denies: abdominal pain. Musculoskeletal: Denies: back pain. Neurological/Psychological: Denies: anxiety, confusion. All Other Systems: Reviewed and Negative Objective Vital Signs and I&Os Vital Signs Date Time Temp Pulse Resp B/P B/P Pulse O2 O2 Flow FiO2 Mean Ox Delivery Rate 08/23 0620 98.3 68 20 130/84 96 Room Air 08/22 2000 98.7 76 18 125/88 100 Room Air 08/22 1900 99.3 78 48 122/78 98 Room Air 08/22 1819 98.7 69 17 123/84 97 Room Air 08/22 1757 77 126/84 08/22 1745 98.9 77 16 126/82 100 Room Air 08/22 1455 99.1 70 18 138/91 100 Room Air 08/22 1440 98.2 74 16 123/74 100 Room Air 08/22 1308 Room Air 08/22 1214 97.6 85 17 121/77 96 Room Air Intake & Output 08/23 0800 08/23 0000 08/22 1600 08/22 0800 08/22 0000 08/21 1600 Intake Total 350 500 Output Total Balance 350 500 Intake, Oral 350 500 Patient 99.79 kg 99.79 kg Weight Weight Reported by Patient Reported by Patient Measurement Method Physical Exam General Appearance: well developed/nourished, no apparent distress, alert, awake , comfortable Head: atraumatic, normal appearance Ears, Nose, Throat: normal pharynx Neck: fullness in neck Respiratory: normal breath sounds, chest non-tender, no respiratory distress, lungs clear Cardiovascular: regular rate/rhythm Abdomen: normal bowel sounds, soft, non-tender Back: normal inspection Extremities: normal inspection Neurologic/Psychiatric: awake, alert, oriented x 3, normal gait, normal mood/ affect Skin: normal color Lymphatic: right axilla adenopathy Current Medications: Current Medications Sig/Sai Start time Last Medication Dose Route Stop Time Status Admin Atorvastatin Calcium 20 MG DAILY 08/23 1000 AC PO Dexamethasone 4 MG DAILY 08/23 1000 AC PO Influenza Virus 0.5 ML ONCE ONE 08/22 1929 DC Vaccine IM 08/22 Losartan Potassium 50 MG DAILY 08/23 1000 AC PO Methylprednisolone 0 .STK-MED ONE 08/22 1414 DC .ROUTE Methylprednisolone 125 MG ONCE ONE 08/22 1400 DC 08/22 IV 08/22 1401 1409 Metoprolol Succinate 200 MG DAILY 08/22 1506 AC 08/22 PO 1757 Results Last 24 Hours of Lab Results: Laboratory Tests 08/23 08/23 0705 0015 Chemistry Total Bilirubin Pending Direct Bilirubin Pending AST Pending ALT Pending Alkaline Phosphatase Pending Total Protein Pending Albumin Pending Hematology CBC w Diff Pending NO MAN DIFF REQ WBC (4.8 - 10.8 /CUMM) Pending 6.0 RBC (4.70 - 6.10 /CUMM) Pending 2.19 L Hgb (14.0 - 18.0 G/DL) Pending 6.5 *L Hct (42 - 52 %) Pending 18.9 *L MCV (80.0 - 94.0 FL) Pending 86.2 MCH (27.0 - 31.0 PG) Pending 29.8 MCHC (33.0 - 37.0 G/DL) Pending 34.6 RDW (11.5 - 14.5 %) Pending 14.2 Plt Count (130 - 400 /CUMM) Pending 52 L MPV (7.4 - 10.4 FL) Pending 7.6 Gran % (42.2 - 75.2 %) 47.1 Lymphocytes % (20.5 - 51.1 %) 49.2 Monocytes % (1.7 - 9.3 %) 2.6 Eosinophils % (0 - 5 %) 0.8 Basophils % (0.0 - 2.0 %) 0.3 Absolute Granulocytes (1.4 - 6.5 /CUMM) 2.8 Absolute Lymphocytes (1.2 - 3.4 /CUMM) 3.0 Absolute Monocytes (0.10 - 0.60 /CUMM) 0.2 Absolute Eosinophils (0.0 - 0.7 /CUMM) 0 Absolute Basophils (0.0 - 0.2 /CUMM) 0 Serology Hepatitis A IgM Ab Pending Hep Bs Antigen Pending Hep B Core IgM Ab Conf Pending Hepatitis C Antibody Pending 08/22 08/22 08/22 1232 1222 1217 Chemistry Sodium (137 - 145 mmol/L) 142 Potassium (3.5 - 5.1 mmol/L) 4.0 Chloride (98 - 107 mmol/L) 103 Carbon Dioxide (22 - 30 mmol/L) 24 Anion Gap (5 - 16) 15 BUN (9 - 20 mg/dL) 16 Creatinine (0.7 - 1.2 mg/dL) 1.2 Estimated GFR (>60 ml/min) > 60 BUN/Creatinine Ratio (7 - 25 %) 13.3 Glucose (65 - 99 mg/dL) 114 H Calcium (8.4 - 10.2 mg/dL) 9.1 TIBC (261 - 462 ug/dL) 334 Ferritin (17.9 - 464 ng/mL) 1160.0 H Total Bilirubin (0.2 - 1.3 mg/dL) 1.6 H Direct Bilirubin (< 0.4 mg/dL) 0.5 H AST (17 - 59 U/L) 68 H ALT (21 - 72 U/L) 92 H Alkaline Phosphatase (< 127 U/L) 223 H Lactate Dehydrogenase (313 - 618 U/L) 692 H Total Protein (6.3 - 8.2 g/dL) 5.6 L Albumin (3.5 - 5.0 g/dL) 4.0 Globulin (1.9 - 4.2 gm/dL) 1.6 L Albumin/Globulin Ratio (1.1 - 2.2 %) 2.5 H Vitamin B12 (239 - 931 pg/mL) 618 Folate (2.76 - 20.0 ng/mL) 15.0 Coagulation PT (9.4 - 12.5 SEC) 12.2 INR (0.90 - 1.17) 1.16 APTT (25 - 37 SEC) 26 Hematology CBC w Diff MAN DIFF ORDERED WBC (4.8 - 10.8 /CUMM) 3.3 L RBC (4.70 - 6.10 /CUMM) 1.62 L Hgb (14.0 - 18.0 G/DL) 4.9 *L Hct (42 - 52 %) 14.0 *L MCV (80.0 - 94.0 FL) 86.0 MCH (27.0 - 31.0 PG) 29.9 MCHC (33.0 - 37.0 G/DL) 34.7 RDW (11.5 - 14.5 %) 13.9 Plt Count (130 - 400 /CUMM) 44 L MPV (7.4 - 10.4 FL) 7.1 L Gran % (42.2 - 75.2 %) 44.4 Lymphocytes % (20.5 - 51.1 %) 45.0 Monocytes % (1.7 - 9.3 %) 8.6 Eosinophils % (0 - 5 %) 1.7 Basophils % (0.0 - 2.0 %) 0.3 Absolute Granulocytes (1.4 - 6.5 /CUMM) 1.5 Segmented Neutrophils (42.2 - 75.2 %) 38 L Band Neutrophils (0.0 - 5.0 %) 6 H Absolute Lymphocytes (1.2 - 3.4 /CUMM) 1.5 Lymphocytes (20.5 - 51.1 %) 49 Monocytes (1.7 - 9.3 %) 4 Absolute Monocytes (0.10 - 0.60 /CUMM) 0.3 Eosinophils (0 - 5.0 %) 1 Absolute Eosinophils (0.0 - 0.7 /CUMM) 0.1 Absolute Basophils (0.0 - 0.2 /CUMM) 0 Metamyelocytes (0.0 - 1.0 %) 1 Myelocytes (0 - 0 %) 1 H Platelet Estimate (ADEQUATE) DECREASED Poikilocytosis 2+ Anisocytosis 2+ Ovalocytes 1+ Retic Count (0.5 - 2.0 %) 1.40 Cancelled Haptoglobin Pending Miscellaneous Flow Cytometry Specimen Pending Recent Imaging Studies: CT chest/abdomen/pelvis 08/22/2017: CHEST: Lungs: The central airways are patent. Minimal reticular opacity at the right base favoring atelectasis. No dense consolidation. No pneumothorax. No pleural effusion. Mediastinum: The heart is at the upper limit of normal in size. Coronary artery calcifications are present. There is diffuse mediastinal, hilar, and peribronchial lymphadenopathy. This is significantly increased from prior. For instance, a subcarinal node measures 2.9 x 1.8 cm on series 2 image 32. Chest Wall/Axilla: Extensive bilateral axillary lymphadenopathy. This is significantly increased from prior. Extensive supraclavicular adenopathy extending into the neck. For instance a right axillary node measures 4.6 x 2.9 cm on series 2 image 18. ABDOMEN/PELVIS: Liver, Gallbladder, Biliary Tree: The liver is normal in size, shape, and attenuation. No focal hepatic lesion or biliary ductal dilatation is present. The gallbladder is unremarkable with no evidence of radiopaque gallstones, gallbladder wall thickening, or pericholecystic inflammatory changes. Pancreas: Unremarkable. Spleen: The spleen is enlarged, measuring 17 cm in AP dimension, compared to 13.8 cm on prior. It measures 15 cm in CC dimension. No focal splenic parenchymal lesion. Adrenal Glands: Unremarkable. Kidneys and Ureters: The kidneys are normal in size, shape, and attenuation. No hydronephrosis, hydroureter or calculi seen. No perinephric stranding. Bladder: Mass effect upon the bladder by bulky pelvic adenopathy. No focal bladder wall abnormality. Gastrointestinal Tract: The stomach is unremarkable. The small bowel is normal in caliber. No obstruction. No colonic wall thickening or inflammatory change. Colonic diverticulosis without diverticulitis. The appendix is unremarkable. Abdominal Wall: No hernia is demonstrated. Lymphovascular Structures: Lymph nodes: There is diffuse increased lymphadenopathy. Bulky retroperitoneal and central mesenteric adenopathy is noted. Prominent pelvic sidewall lymph nodes. For instance, there is a right iliac chain node which measures 5 x 3 cm. This contributes to the deformity of the bladder. Vascular: Unremarkable. Pelvic Viscera: The prostate and seminal vesicles are unremarkable. OSSEOUS STRUCTURES: No suspicious sclerotic or lytic bone lesions are identified. IMPRESSION: Extensive lymphadenopathy which is increased from prior. This is seen throughout the course of the study, extending from the supraclavicular region through the inguinal regions. The appearance is suspicious for lymphoma. Mild splenomegaly. Assessment/Plan Hematology Assessment/Recommendations: Mr. Nichols is a 51-year-old with CLL status post FCR completed in February 2014 and in remission who presented today hospital after being seen in the cancer center. He was noted to have severe anemia and thrombocytopenia. He has new pancytopenia. Bloodwork demonstrated bilirubin of 1.6, creatinine of 1.2, slightly elevated AST and ALT, elevated alkaline phosphatase, elevated LDH, hemoglobin of 4.9, hematocrit of 14.0, plateletcount of 44,000, white count of 3300, and reticulocyte count of 1.4%. This is less likely a hemolytic process. It is concerning for progression of CLL versus transformation to new aggressive lymphoma (Santaan's transformation). CT scan demonstrated diffuse adenopathy. He will need lymph node biopsy and bone marrow biopsy. Ideally, he would need excisional biopsy of the lymph node but multiple core biopsies would be appropriate for the lymph node sample for now. Bone marrow biopsy would help with the diagnosis of the pancytopenia. He may be continued on steroid for now. Pancytopenia is improving and is likely due to transfusion and steroid. Dexamethasone is use in the treatment of lymphoma/CLL. Pancytopenia: -Goal hemoglobin >7 -Continue dexamethasone 40 mg daily -Obtain bone marrow biopsy -Obtain multiple core biopsy of lymph node (right axilla as the biggest and easiest) -Follow up flow cytometry CLL with diffuse adenopathy -further work up as above -will need chemotherapy as outpatient Please call [phone] with any questions or concerns. Problem List: 1. CLL (chronic lymphocytic leukemia) 2. Symptomatic anemia 3. Pancytopenia 4. Diffuse lymphadenopathy
[2017-08-23 08:29] LABS: HEMATOCRIT 18.6 % (42-52)
[2017-08-23 09:25] LABS: ABSOLUTE BASOPHIL COUNT 0 /CUMM (0.0-0.2); ABSOLUTE EOSINOPHIL COUNT 0 /CUMM (0.0-0.7); ABSOLUTE GRANULOCYTE CT 3.3 /CUMM (1.4-6.5); ABSOLUTE LYMPH COUNT 3.4 /CUMM (1.2-3.4); ABSOLUTE MONOCYTE COUNT 0.3 /CUMM (0.10-0.60); BASOPHIL % 0.2 % (0.0-2.0); EOSINOPHIL % 0.4 % (0-5); MEAN CORPUSCULAR HGB 29.7 PG (27.0-31.0); MEAN CORPUSCULAR HGB CONC 33.6 G/DL (33.0-37.0); MEAN CORPUSCULAR VOLUME 88.2 FL (80.0-94.0); MEAN PLATELET VOLUME 6.8 FL (7.4-10.4); PLATELET COUNT 56 /CUMM (130-400); RBC DISTRIBUTION WIDTH 13.8 % (11.5-14.5); RED BLOOD CELL CT 2.38 /CUMM (4.70-6.10); WHITE BLOOD CELL COUNT 7.1 /CUMM (4.8-10.8)
--- NOTE | 2017-08-23 15:04 | Patient Discharge Instructions ---
Discharge Instructions General Discharge Information You were seen/treated for: #Symptomatic Pancytopenia #Hx of CLL #Extensive Lymphadenopathy #Transaminitis #Hx of HTN, HLD Special Instructions: - Please follow up with your oncologist Dr. Reyna within 1-2 week of discharge for your biopsy results. - Please follow up with your primary care physician within 1-2 week of discharge. Inform your primary care physician of this admission to [facility]. - Continue your current medications per discharge instructions. - Please watch for these problems: Fever, Chills, Nausea, Vomiting, Shortness of Breath, Productive Cough, Chest Pain/Discomfort, Abdominal Pain, Active Bleeding or Bloody urine/stool. Diet Continue normal diet: Yes Activity Full Activity/No Limits: Yes Acute Coronary Syndrome Inclusion Criteria At DC or during hospital stay patient has or had the following: ACS DIAGNOSIS No Discharge Core Measures Meds if any: Prescribed or Continued at Discharge Meds if any: NOT Prescribed or Continued at Discharge Congestive Heart Failure Inclusion Criteria At DC or during hospital stay patient has or had the following: CHF DIAGNOSIS No Discharge Core Measures Meds if any: Prescribed or Continued at Discharge Meds if any: NOT Prescribed or Continued at Discharge Cerebrovascular accident Inclusion Criteria At DC or during hospital stay patient has or had the following: CVA/TIA Diagnosis No Discharge Core Measures Meds if any: Prescribed or Continued at Discharge Meds if any: NOT Prescribed or Continued at Discharge Venous thromboembolism Inclusion Criteria VTE Diagnosis No VTE Type NONE VTE Confirmed by (Test) NONE Discharge Core Measures - Per Current guidelines, there needs to be overlap - treatment for the first 5 days of Warfarin therapy. - If discharged on Warfarin prior to 5 days of - overlap therapy, the patient will need to be - assessed for post discharge needs including - *Post discharge parental anticoagulation - *Warfarin and/or parental anticoagulation education - *Follow up date to check INR post discharge At least 5 days overlap therapy as Inpatient No Meds if any: Prescribed or Continued at Discharge Note: Overlap Therapy is Warfarin and Anticoagulant Meds if any: NOT Prescribed or Continued at Discharge
--- NOTE | 2017-08-23 15:05 | Discharge Summary ---
Visit Information Visit Dates Admission Date: 08/22/17 Discharge Date: 08/24/2017 Hospital Course Course Attending Physician: Malik Gaona MD Primary Care Physician: Willam Garcia Hospital Course: Mr. Nichols is a 51-year-old male w/ PMH of CLL, HTN, HLD, sent in by his oncologist Dr. Gibbons for increasingly weakness/fatigue. Patient complained of shortness of breath with any type of exertion. He went to be checked out and was found to be profoundly anemic at Hgb 4.7. Patient endorsed his fatigue and exertional dyspnea started about a month ago without known trigger of his memory , and had worsened over the past two weeks that everytime he got upstairs at home he became short of breath. Patient denied fever/night sweat/weight change, dietary/appetite/medication change, new exposure to chemicals/new house/ hazardous chemicals. Patient denied chest Pain/coughing up blood/Palpitation/ Abdominal pain, bowel movement/urinary abnormality/bloody stool/hematuria, or other skin/musculoskeletal/neurological disorders. Of note, patient was diagnosed of CLL 4 years ago, underwent routine chemo by oncologists at [facility] soon after diagnose, and since then was in remission. His stated that patient's Hgb was in 12-14 range from 06/2017. On presentation: Vitals stable -CBC: WBC 3.3, RBC 1.62, H/H 4.9/14.0, PLT 44, Retic 1.40 -BMP: AST/ALT 68/92, ALkPhos 223, LDH 692, TBili 1.6, Direct Bili 0.5 -Misc: B12/Folate pending -EKG: Normal sinus rhythm without significant ST-T abnormalities. -Interventions in ER: Solumedrol 125mg Assessement: Mr. Nichols is a 51-year-old male w/ PMH of CLL, HTN, HLD, sent in by his oncologist Dr. Gibbons for increasingly weakness/fatigue. Patient complained of shortness of breath with any type of exertion. He went to be checked out and was found to be profoundly anemic at Hgb 4.7. Patient's CBC showed pancytopenia with WBC 3.3, RBC 1.62, H/H 4.9/14.0, PLT 44, with retic count of 1.4 signaling no bone marrow stimulation, despite LDH was elevated to 692 which represented possible common complication of Autoimmune hemolytic anemia from CLL. Aplastic anemia with unclear etiology could also contribute to the pancytopenia. Patient currently had no signs of infection. Iron level WNL, pending B12/Folate. PT/INR WNL no sign of DIC. Patient's pancytopenia could be multifactorial including hemolytic anemia, and possibly other underlying disease. Problem list #Symptomatic Pancytopenia with unclear etiology Patient's Hgb on admission 4.7 -> 6.5 -> 7.1, (stable per Residential Designer) on latest lab s/p PRBC transfusion 3U, and stablized. Patient's symptoms including SOB on exertion had improved prior discharge. #Hx of CLL Patient's oncologist Dr. Reyna was consulted. Patient's anemia may have a CLL component including hemolysis with elevated LDH, however a more likelly cause of transformation to new aggressive lymphoma (Santana's transformation). Patient underwent bone marrow and right auxillary lymph nodes biopsy and will follow up results in outpatient. #Extensive Lymphadenopathy Patient underwent CT Chest/Ab/Pelvis on 08/22 that showed Extensive lymphadenopathy which is increased from prior. This is seen throughout the course of the study, extending from the supraclavicular region through the inguinal regions. The appearance is suspicious for lymphoma. Mild splenomegaly. Patient underwent bone marrow and right auxillary lymph nodes biopsy and will follow up results in outpatient. #Transaminitis On admission, patient's AST/ALT 68/92, trended down 38/65. Will monitor outpatient. #Hx of HTN, HLD Patient was continued on home meds including Metoprolol, Losartan, Lipitor. DVT prophylaxis ALPS only given his low platelet count. Regular Diet Full Code Allergies: Coded Allergies: NO KNOWN ALLERGIES (10/02/13) Significant Procedures: SERVICE DATE: 08/23/17- EXAM TYPE: CAT - CT BONE BIOPSY; CT SOFT TISSUE BIOPSY IMPRESSION: 1. Bone marrow aspirate and core bone biopsies performed of the posterior left iliac tuberosity using the Thismoment system under CT fluoroscopic guidance. 2. Multiple 18 gauge core needle biopsies performed of an enlarged right axillary lymph node under CT fluoroscopic guidance. Pertinent Lab Results: SERVICE DATE: 08/22/17- EXAM TYPE: CAT - CT ABD & PELVIS W IV CONTRAST; CT CHEST W IV CONTRAST IMPRESSION: Extensive lymphadenopathy which is increased from prior. This is seen throughout the course of the study, extending from the supraclavicular region through the inguinal regions. The appearance is suspicious for lymphoma. Mild splenomegaly. Disposition Summary Disposition Principal Diagnosis: #Symptomatic Pancytopenia #Hx of CLL #Extensive Lymphadenopathy #Transaminitis #Hx of HTN, HLD Additional Diagnosis: As above Discharge Disposition: home or self care Discharge Instructions General Discharge Information Code Status: Full Code Patient's Diet: Regular Patient's Activity: As tolerated Follow-Up Instructions/Appts: - Please follow up with your oncologist Dr. Reyna within 1-2 week of discharge for your biopsy results. - Please follow up with your primary care physician within 1-2 week of discharge. Inform your primary care physician of this admission to [facility]. - Continue your current medications per discharge instructions. - Please watch for these problems: Fever, Chills, Nausea, Vomiting, Shortness of Breath, Productive Cough, Chest Pain/Discomfort, Abdominal Pain, Active Bleeding or Bloody urine/stool. Medications at Discharge Discharge Medications: Continue taking these medications: Metoprolol Succinate (Metoprolol Succinate) 200 MG TAB.ER.24H 1 Tablet ORAL DAILY Qty = 90 Comments: Last Taken: 08/24/17 Time: 9AM Losartan Potassium (Losartan Potassium) 50 MG TABLET 1 Tablet ORAL DAILY Qty = 90 Comments: Last Taken: 08/24/17 Time: 9AM Atorvastatin Calcium (Atorvastatin Calcium) 20 MG TABLET 1 Tablet ORAL DAILY Qty = 90 Comments: Last Taken: 08/24/17 Time: 9AM Start taking the following new medications: Dexamethasone (Dexamethasone) 4 MG TABLET 1 Tablet ORAL DAILY Qty = 1 No Refills Comments: Last Taken: 08/24/17 Time: 9AM Copies To: Sanjuana CARDONA,Willam Reyna MD,Herberth Attending MD Review Statement Documenting Attending: Candelaria AMAYA,Malik Other Findings: 51 o/m with pmh of cll comes with symptomatic anemia with Pancytopenia and mild transaminitis with mild hyperbilirubinemia and normal retics. Patient admitted to inpatient medical serivces. Transfused 2 unit of prbc, f/u hemtaology/ oncology. CT abd/pelvis/chest with increased burden of lymphadneopathy S/P IR guided bone marrow biopsy and right axillary LN biopsy. Panculture if spikes fever, Avoid medications depress bone marrow function. FOLLOW UP Hematology/oncology on Tuesday
[2017-08-23 17:25] VITALS: BP 120/70
[2017-08-23 19:43] LABS: ABSOLUTE BASOPHIL COUNT 0 /CUMM (0.0-0.2); ABSOLUTE EOSINOPHIL COUNT 0 /CUMM (0.0-0.7); ABSOLUTE GRANULOCYTE CT 3.9 /CUMM (1.4-6.5); ABSOLUTE LYMPH COUNT 3.7 /CUMM (1.2-3.4); ABSOLUTE MONOCYTE COUNT 0.2 /CUMM (0.10-0.60); BASOPHIL % 0.2 % (0.0-2.0); EOSINOPHIL % 0.2 % (0-5); GRANULOCYTE % 49.7 % (42.2-75.2); HEMATOCRIT 21.2 % (42-52); MEAN CORPUSCULAR HGB 29.7 PG (27.0-31.0); MEAN CORPUSCULAR HGB CONC 33.6 G/DL (33.0-37.0); MEAN CORPUSCULAR VOLUME 88.3 FL (80.0-94.0); MEAN PLATELET VOLUME 7.2 FL (7.4-10.4); PLATELET COUNT 57 /CUMM (130-400); RBC DISTRIBUTION WIDTH 14.4 % (11.5-14.5); WHITE BLOOD CELL COUNT 7.8 /CUMM (4.8-10.8)
--- NOTE | 2017-08-23 19:52 | CT SCAN REPORT ---
EXAMINATION: CT BONE MARROW ASPIRATE AND DEEP BONE BIOPSY, CT guided CORE NEEDLE BIOPSY OF RIGHT AXILLARY ADENOPATHY CLINICAL INFORMATION: 51-year-old patient with a past medical history of CLL, now presenting with pancytopenia and diffuse bulky adenopathy. Bone marrow aspirate and core bone biopsy requested for confirmation of marrow analysis. Core needle biopsies were requested of the patient's adenopathy. COMPARISON: CT of the chest, abdomen, and pelvis dated 08/22/2017. CLOTH BRUSHING AND SUEDING SUPERVISOR: Lj Baltazar M.D. DESCRIPTION: Informed consent was obtained from the patient prior to the procedure. During this process, the procedure and potential alternatives was explained, along with the intended outcome and benefits. The risks of the procedure, as well as the risk of not doing the procedure, were discussed. The patient was given the opportunity to ask questions regarding the procedure and appeared competent to make medical decisions. A signed consent form which documents this discussion was placed in the medical record. The patient's prior CT imaging studies were reviewed. The patient was brought to the CT suite and a final timeout procedure was performed. IV fentanyl was administered for pain control. The patient was placed in the CT gantry in the prone position. Fruit Trimmer sections were obtained through the pelvis with a grid on the left buttock for localization of the left posterior iliac bone. The overlying soft tissues were sterilely prepped and draped. Maximum sterile barrier technique was maintained throughout the procedure. Following administration of superficial and deep anesthesia down to the periosteum using 1% lidocaine and 0.5% bupivacaine, an 11-gauge, 10 cm length access needle was introduced to the right posterior iliac tuberosity under CT fluoroscopic guidance. The Trov power handle was activated to drive the access needle forward penetrating the outer cortex. Approximately 15 mL of bone marrow was aspirated and divided between a green top tube with heparin/sodium chloride and a purple top tube with EDTA. The 13-gauge biopsy needle was then introduced coaxially and two 1 cm core bone specimens were obtained. One core was submitted in buffered formalin and the other core in RPMI solution. The patient was then turned into the supine position and rnp sections were obtained through the right axilla. A 4.4 x 3.1 cm lymph node in the lateral inferior right axilla was targeted. The overlying soft tissues were sterilely prepped and draped. The skin and deeper tissues were anesthetized using 1% lidocaine and 0.5% bupivacaine. A 17-gauge guide needle was advanced into the anterior margin of the target lymph node. Seven 18-gauge core biopsies were then obtained sequentially using coaxial technique. 2 cores were submitted in RPMI solution and 5 cores were submitted in buffered formalin. The patient tolerated the procedure well. Scans after the biopsy did not show evidence of a hemorrhage or other complication. The patient was observed in the ambulatory surgical suite and subsequently transferred to his hospital room in stable condition. MEDICATIONS: 200 mcg fentanyl ESTIMATED RADIATION DOSE: 217.5 mGy-cm IMPRESSION: 1. Bone marrow aspirate and core bone biopsies performed of the posterior left iliac tuberosity using the Trov system under CT fluoroscopic guidance. 2. Multiple 18 gauge core needle biopsies performed of an enlarged right axillary lymph node under CT fluoroscopic guidance.
[2017-08-23 22:32] VITALS: BP 110/80
[2017-08-24 06:30] VITALS: BP 122/74
--- NOTE | 2017-08-24 08:00 | PN- Housestaff ---
Carmella Man 08/24/17 0756: Subjective Follow-up For: #Symptomatic Pancytopenia with unclear etiology #Hx of CLL #Extensive Lymphadenopathy #Transaminitis #Hx of HTN, HLD Subjective: No overnight event. Patient was seen by Dr. Reyna this morning and had appointment set up for coming Tuesday. Offered no complaint of SOB/ lightheadedness, and stated that he could walk around without dyspnea. Denied any discomfort/pain from IR incision site from biopsy. Patient would like to go home today. Review of Systems Constitutional: Reports: see HPI. Objective Last 24 Hrs of Vital Signs/I&O Vital Signs Date Time Temp Pulse Resp B/P B/P Pulse O2 O2 Flow FiO2 Mean Ox Delivery Rate 08/24 0630 98.1 65 18 122/74 98 Room Air 08/23 2232 99.0 69 20 110/80 97 08/23 1725 98.5 64 20 120/70 96 08/23 0833 68 130/84 08/23 0832 68 130/84 08/23 0800 Room Air Intake & Output 08/24 0800 08/24 0000 08/23 1600 Intake Total 250 120 Output Total Balance 250 120 Intake, IV 10 Intake, Oral 240 120 Number 0 Bowel Movements Physical Exam General Appearance: Alert, Oriented X3, Cooperative, No Acute Distress Cardiovascular: Regular Rate Lungs: Clear to Auscultation, Normal Air Movement Current Medications: Current Medications Sig/Sai Start time Last Medication Dose Route Stop Time Status Admin Atorvastatin Calcium 20 MG DAILY 08/23 1000 AC 08/23 PO 0833 Bupivacaine HCl 0 .STK-MED ONE 08/23 1554 DC .ROUTE Bupivacaine HCl 0 .STK-MED ONE 08/23 1522 DC .ROUTE Dexamethasone 4 MG DAILY 08/23 1000 CAN PO Dexamethasone 40 MG DAILY 08/23 1000 AC 08/23 PO 1008 Dexamethasone 4 MG DAILY 08/23 1000 DC PO Fentanyl Citrate 0 .STK-MED ONE 08/23 1520 DC .ROUTE Fentanyl Citrate 0 .STK-MED ONE 08/23 1442 DC .ROUTE Flumazenil 0 .STK-MED ONE 08/23 1443 DC IV Lidocaine 1 ML .STK-MED ONE 08/23 1705 DC ID 08/23 1706 Losartan Potassium 50 MG DAILY 08/23 1000 AC 08/23 PO 0833 Metoprolol Succinate 200 MG DAILY 02/19 1506 AC 08/23 PO 0832 Midazolam HCl 0 .STK-MED ONE 08/23 1442 DC .ROUTE Naloxone HCl 0 .STK-MED ONE 08/23 1443 DC .ROUTE Patient Medication 1 ED ONE ONE 08/23 1445 OR Teaching ED 08/23 144 Last 24 Hrs of Lab/Suhail Results Last 24 Hrs of Labs/Mics: Laboratory Tests 08/24/17 0600: CBC w Diff Cancelled, WBC Cancelled, RBC Cancelled, Hgb Cancelled, Hct Cancelled , MCV Cancelled, MCH Cancelled, MCHC Cancelled, RDW Cancelled, Plt Count Cancelled, MPV Cancelled 08/23/17 1858: CBC w Diff NO MAN DIFF REQ, RBC 2.40 L, MCV 88.3, MCH 29.7, MCHC 33.6, RDW 14.4 , MPV 7.2 L, Gran % 49.7, Lymphocytes % 47.6, Monocytes % 2.3, Eosinophils % 0.2, Basophils % 0.2, Absolute Granulocytes 3.9, Absolute Lymphocytes 3.7 H, Absolute Monocytes 0.2, Absolute Eosinophils 0, Absolute Basophils 0 08/23/17 1600: Flow Cytometry Specimen Pending 08/23/17 1600: Leukemic Chromosome Anal Pending, Flow Cytometry Specimen Pending 08/23/17 0844: CBC w Diff NO MAN DIFF REQ, RBC 2.38 L, MCV 88.2, MCH 29.7, MCHC 33.6, RDW 13.8 , MPV 6.8 L, Gran % 47.0, Lymphocytes % 48.6, Monocytes % 3.8, Eosinophils % 0.4, Basophils % 0.2, Absolute Granulocytes 3.3, Absolute Lymphocytes 3.4, Absolute Monocytes 0.3, Absolute Eosinophils 0, Absolute Basophils 0 Assessment/Plan Assessment: Mr. Nichols is a 51-year-old male w/ PMH of CLL, HTN, HLD, sent in by his oncologist Dr. Gibbons for increasingly weakness/fatigue. Patient complained of shortness of breath with any type of exertion. He went to be checked out and was found to be profoundly anemic at Hgb 4.7. Patient endorsed his fatigue and exertional dyspnea started about a month ago without known trigger of his memory , and had worsened over the past two weeks that everytime he got upstairs at home he became short of breath. Patient denied fever/night sweat/weight change, dietary/appetite/medication change, new exposure to chemicals/new house/ hazardous chemicals. Patient denied chest Pain/coughing up blood/Palpitation/ Abdominal pain, bowel movement/urinary abnormality/bloody stool/hematuria, or other skin/musculoskeletal/neurological disorders. Of note, patient was diagnosed of CLL 4 years ago, underwent routine chemo by oncologists at [facility] soon after diagnose, and since then was in remission. His stated that patient's Hgb was in 12-14 range from 06/2017. On presentation: Vitals stable -CBC: WBC 3.3, RBC 1.62, H/H 4.9/14.0, PLT 44, Retic 1.40 -BMP: AST/ALT 68/92, ALkPhos 223, LDH 692, TBili 1.6, Direct Bili 0.5 -Misc: B12/Folate pending -EKG: Normal sinus rhythm without significant ST-T abnormalities. -Interventions in ER: Solumedrol 125mg Assessement: Mr. Nichols is a 51-year-old male w/ PMH of CLL, HTN, HLD, sent in by his oncologist Dr. Gibbons for increasingly weakness/fatigue. Patient complained of shortness of breath with any type of exertion. He went to be checked out and was found to be profoundly anemic at Hgb 4.7. Patient's CBC showed pancytopenia with WBC 3.3, RBC 1.62, H/H 4.9/14.0, PLT 44, with retic count of 1.4 signaling no bone marrow stimulation, despite LDH was elevated to 692 which represented possible common complication of Autoimmune hemolytic anemia from CLL. Aplastic anemia with unclear etiology could also contribute to the pancytopenia. Patient currently had no signs of infection. Iron level WNL, pending B12/Folate. PT/INR WNL no sign of DIC. Patient's pancytopenia could be multifactorial including hemolytic anemia, and possibly other underlying disease. Problem list #Symptomatic Pancytopenia with unclear etiology - Hgb on admission 4.7 -> 7.1 stablized on latest lab s/p PRBC transfusion 3U. #Hx of CLL - Appreciated Hemonc consult however would pursue on bone/lymphnode biopsy as below. Will f/u with Dr. Reyna in outpatient on coming Tuesday. #Extensive Lymphadenopathy - CT Chest/Ab/Pelvis 08/22: Extensive lymphadenopathy which is increased from prior. This is seen throughout the course of the study, extending from the supraclavicular region through the inguinal regions. The appearance is suspicious for lymphoma. Mild splenomegaly. - Will proceed with IR guided R axillary Lymp Node Core biopsy + Bone marrow biopsy. - Pending Haptoglobin #Transaminitis - Hepatitis panel negative #Hx of HTN, HLD - Continued home meds including Metoprolol, Losartan, Lipitor - Panculture if spikes fever DVT prophylaxis ALPS Regular Diet Full Code Problem List: 1. Pancytopenia 2. CLL (chronic lymphocytic leukemia) 3. Diffuse lymphadenopathy Pain Ratin Pain Location: NA Pain Goal: Remain pain free Pain Plan: see AP Tomorrow's Labs & Rationales: FAVIO DaleMalik aquino 08/24/17 1136: Attending MD Review Statement Attending Statement Attending MD Statement: examined this patient, discuss w/resident/PA/HEAD ATHLETIC TRAINER/STRENGTH COACH, agreed w/resident/PA/HEAD ATHLETIC TRAINER/STRENGTH COACH, discussed with family, reviewed EMR data (avail), discussed with nursing, discussed with case mgmt, reviewed images, amended to note Attending Assessment/Plan: 51 o/m with pmh of cll comes with symptomatic anemia with Pancytopenia and mild transaminitis with mild hyperbilirubinemia and normal retics. Patient admitted to inpatient medical serivces. Transfused 2 unit of prbc, f/u hemtaology/ oncology. S/P IR guided bone marrow biopsy and right axillary LN biopsy. Panculture if spikes fever, Avoid medications depress bone marrow function. FOLLOW UP Hematology/oncology on Tuesday Patient is medically stable for discharge.
--- NOTE | 2017-08-24 08:05 | PN- Hematology ---
Subjective Subjective: He feels well this morning. He has tolerated biopsies of the lymph node and bone marrow well. He has no new symptoms. Energy level is improved. Review of Systems: Constitutional: Denies: chills, fever, weakness. Cardiovascular: Denies: chest pain. Gastrointestinal: Denies: abdominal pain. Musculoskeletal: Denies: back pain. Neurological/Psychological: Denies: anxiety, confusion. All Other Systems: Reviewed and Negative Objective Vital Signs and I&Os Vital Signs Date Time Temp Pulse Resp B/P B/P Pulse O2 O2 Flow FiO2 Mean Ox Delivery Rate 08/24 0630 98.1 65 18 122/74 98 Room Air 08/23 2232 99.0 69 20 110/80 97 08/23 1725 98.5 64 20 120/70 96 08/23 0833 68 130/84 08/23 0832 68 130/84 08/23 0800 Room Air Intake & Output 08/24 0800 08/24 0000 08/23 1600 08/23 0800 08/23 0000 08/22 1600 Intake Total 250 120 500 350 500 Output Total Balance 250 120 500 350 500 Intake, Blood 300 Product Intake, IV 10 100 Intake, Oral 240 120 100 350 500 Number 0 0 Bowel Movements Patient 99.79 kg 99.79 kg Weight Weight Reported by Patient Reported by Patient Measurement Method Physical Exam: General Appearance: well developed/nourished, no apparent distress, alert, awake , comfortable Head: atraumatic, normal appearance Neck: fullness in neck Respiratory: normal breath sounds, chest non-tender, no respiratory distress, lungs clear Cardiovascular: regular rate/rhythm Abdomen: normal bowel sounds, soft, non-tender Back: normal inspection Extremities: normal inspection Neurologic/Psychiatric: awake, alert, oriented x 3, normal gait, normal mood/ affect Skin: normal color Lymphatic: right axilla adenopathy Current Medications: Current Medications Sig/Sai Start time Last Medication Dose Route Stop Time Status Admin Atorvastatin Calcium 20 MG DAILY 08/23 1000 AC 08/23 PO 0833 Bupivacaine HCl 0 .STK-MED ONE 08/23 1554 DC .ROUTE Bupivacaine HCl 0 .STK-MED ONE 08/23 1522 DC .ROUTE Dexamethasone 4 MG DAILY 08/23 1000 CAN PO Dexamethasone 40 MG DAILY 08/23 1000 AC 08/23 PO 1008 Dexamethasone 4 MG DAILY 08/23 1000 DC PO Fentanyl Citrate 0 .STK-MED ONE 08/23 1520 DC .ROUTE Fentanyl Citrate 0 .STK-MED ONE 08/23 1442 DC .ROUTE Flumazenil 0 .STK-MED ONE 08/23 1443 DC IV Lidocaine 1 ML .STK-MED ONE 08/23 1705 DC ID 08/23 1706 Losartan Potassium 50 MG DAILY 08/23 1000 AC 08/23 PO 0833 Metoprolol Succinate 200 MG DAILY 08/22 1506 AC 08/23 PO 0832 Midazolam HCl 0 .STK-MED ONE 08/23 144 DC .ROUTE Naloxone HCl 0 .STK-MED ONE 08/23 1443 DC .ROUTE Patient Medication 1 ED ONE ONE 08/23 1445 DC Teaching ED 08/23 144 Results Last 24 Hours of Lab Results: Laboratory Tests 08/24 08/23 08/23 0600 1858 1600 Hematology CBC w Diff Cancelled NO MAN DIFF REQ WBC (4.8 - 10.8 /CUMM) Cancelled 7.8 RBC (4.70 - 6.10 /CUMM) Cancelled 2.40 L Hgb (14.0 - 18.0 G/DL) Cancelled 7.1 *L Hct (42 - 52 %) Cancelled 21.2 L MCV (80.0 - 94.0 FL) Cancelled 88.3 MCH (27.0 - 31.0 PG) Cancelled 29.7 MCHC (33.0 - 37.0 G/DL) Cancelled 33.6 RDW (11.5 - 14.5 %) Cancelled 14.4 Plt Count (130 - 400 /CUMM) Cancelled 57 L MPV (7.4 - 10.4 FL) Cancelled 7.2 L Gran % (42.2 - 75.2 %) 49.7 Lymphocytes % (20.5 - 51.1 %) 47.6 Monocytes % (1.7 - 9.3 %) 2.3 Eosinophils % (0 - 5 %) 0.2 Basophils % (0.0 - 2.0 %) 0.2 Absolute Granulocytes (1.4 - 6.5 /CUMM) 3.9 Absolute Lymphocytes (1.2 - 3.4 /CUMM) 3.7 H Absolute Monocytes (0.10 - 0.60 /CUMM) 0.2 Absolute Eosinophils (0.0 - 0.7 /CUMM) 0 Absolute Basophils (0.0 - 0.2 /CUMM) 0 Miscellaneous Flow Cytometry Specimen Pending 08/23 08/23 1600 0844 Hematology CBC w Diff NO MAN DIFF REQ WBC (4.8 - 10.8 /CUMM) 7.1 RBC (4.70 - 6.10 /CUMM) 2.38 L Hgb (14.0 - 18.0 G/DL) 7.1 *L Hct (42 - 52 %) 21.0 L MCV (80.0 - 94.0 FL) 88.2 MCH (27.0 - 31.0 PG) 29.7 MCHC (33.0 - 37.0 G/DL) 33.6 RDW (11.5 - 14.5 %) 13.8 Plt Count (130 - 400 /CUMM) 56 L MPV (7.4 - 10.4 FL) 6.8 L Gran % (42.2 - 75.2 %) 47.0 Lymphocytes % (20.5 - 51.1 %) 48.6 Monocytes % (1.7 - 9.3 %) 3.8 Eosinophils % (0 - 5 %) 0.4 Basophils % (0.0 - 2.0 %) 0.2 Absolute Granulocytes (1.4 - 6.5 /CUMM) 3.3 Absolute Lymphocytes (1.2 - 3.4 /CUMM) 3.4 Absolute Monocytes (0.10 - 0.60 /CUMM) 0.3 Absolute Eosinophils (0.0 - 0.7 /CUMM) 0 Absolute Basophils (0.0 - 0.2 /CUMM) 0 Miscellaneous Leukemic Chromosome Anal Pending Flow Cytometry Specimen Pending Assessment/Plan Hematology Assessment/Recommendations: Mr. Nichols is a 51-year-old with CLL status post FCR completed in February 2014 and in remission who presented today hospital after being seen in the cancer center. He was noted to have severe anemia and thrombocytopenia. He has new pancytopenia. Bloodwork demonstrated bilirubin of 1.6, creatinine of 1.2, slightly elevated AST and ALT, elevated alkaline phosphatase, elevated LDH, hemoglobin of 4.9, hematocrit of 14.0, plateletcount of 44,000, white count of 3300, and reticulocyte count of 1.4%. Presentation seems less likely from a hematolytic process. There is significant concern for progression of CLL versus Santana's transformation versus acute leukemia. CT scan demonstrated diffuse adenopathy. He has underwent bone marrow biopsy and lymph node biopsy. Flow cytometry is sent. He has improved after 3 units of pRBC. He should complete 4 days of dexamethasone 40 mg today. He will get repeat blood work on Tuesday [facility] at the [facility] to ensure no need for transfusion. He will follow up in 1 week. Pancytopenia: -Goal hemoglobin >7 -Continue dexamethasone 40 mg daily for 4 days total (day 3 today) -Follow up flow cytometry, bone marrow biopsy, and lymph node biopsy -Blood work on Tuesday AM at the [facility] to monitor need for transfusion CLL with diffuse adenopathy -further work up as above -likely need chemotherapy as outpatient -follow up in 1 week Please call [phone] with any questions or concerns. Problem List: 1. Pancytopenia 2. Diffuse lymphadenopathy 3. CLL (chronic lymphocytic leukemia) 4. Symptomatic anemia
[2017-08-24 09:03] VITALS: BP 122/74
[2017-08-24] MEDS ORDERED: DEXAMETHASONE4 M1 PO (09:41)
== END 2017-08-24 10:09 | DRG 803 ==
LOC: ERH 12:08 → 2NA 15:26 → ERHI 15:26 → ENRESERV 16:17 → ENTRNSPT 18:22 → EDTRNSPT 18:38 → EDTRNSPTSTS 18:38 → 2NA 18:40 → CMPTRNSPT 18:57 → ENPENDDIS 08-24 09:19 → ENTRNSPT 08-24 09:54 → EDTRNSPT 08-24 10:03 → EDTRNSPTSTS 08-24 10:03 → CMPTRNSPT 08-24 10:04 → 2NA 08-24 10:09
PROVIDERS: Emergency Medicine; Physician Assistant Medical; Student in an Organized Health Care Education/Training Program
PROC: 30233N1 Transfusion of Nonautologous Red Blood Cells into Peripheral Vein, Percutaneous Approach (ICD-10-PCS; principal; 2017-08-22)
PROC: 07953ZX Drainage of Right Axillary Lymphatic, Percutaneous Approach, Diagnostic (ICD-10-PCS; 2017-08-23)
PROC: 07DR3ZX Extraction of Iliac Bone Marrow, Percutaneous Approach, Diagnostic (ICD-10-PCS; 2017-08-23)
DX: D61.818 Other pancytopenia (principal); C91.11 Chronic lymphocytic leukemia of B-cell type in remission; D69.6 Thrombocytopenia, unspecified; R74.0 Nonspecific elevation of levels of transaminase and lactic acid dehydrogenase [LDH]; R59.1 Generalized enlarged lymph nodes; E78.5 Hyperlipidemia, unspecified; I10 Essential (primary) hypertension; Z92.21 Personal history of antineoplastic chemotherapy; E66.9 Obesity, unspecified; Z68.31 Body mass index [BMI] 31.0-31.9, adult; D64.9 Anemia, unspecified
CPT/HCPCS: 2NASP; 36415; 36592; 74177; 77012; 83010; 86920; 87040; 87070; 87086; 88184; 93005; 93010; 96374; 99291; J1100; J2310; J2930; J7508; P9016

== ENCOUNTER 2017-10-21 17:27 | Inpatient (IN) | payer OTHER ==
[~2017-10-21] VITALS: Ht 177.8 cm; Wt 94.3 kg
[~2017-10-21 17:27] MED LIST: ATORVASTATIN CA20 M1 PO; DEXAMETHASONE4 M1 PO; LOSARTAN POTASS50 M1 PO; METOPROLOL SUC200 M2 PO
--- NOTE | 2017-10-21 18:24 | RADIOLOGY REPORT ---
EXAMINATION: CHEST 2 VIEWS CLINICAL INFORMATION: Fever, cough, malaise. CLL. COMPARISON: 08/22/2017. TECHNIQUE: PA and lateral views of the chest were obtained. FINDINGS: The cardiac silhouette is not enlarged. The mediastinal and hilar contours are unremarkable. There are neither pleural effusions nor pneumothoraces. There is a right upper lobe infiltrate present. There is mild bibasilar atelectasis. The osseous structures are stable. IMPRESSION: Right upper lobe infiltrate concerning for pneumonia. Recommendation is for a followup chest series to be obtained following treatment and/or resolution of symptoms to assure resolution of this appearance.
--- NOTE | 2017-10-21 18:27 | ED GENERAL ADULT ---
History of Present Illness General Chief Complaint: General Adult Stated Complaint: FATIGUE,?DEHYDRATION,LOSS OF APPETITE X3 DAYS Source: patient, family, old records Exam Limitations: no limitations Vital Signs & Intake/Output Vital Signs & Intake/Output Vital Signs Date Time Temp Pulse Resp B/P B/P Pulse O2 O2 Flow FiO2 Mean Ox Delivery Rate 10/21 2319 108/70 10/21 2252 97.0 103 18 108/70 97 Room Air Room Air 10/21 2222 116 119/57 10/21 2158 98.4 114 18 101/66 97 Room Air Room Air 10/218 98.5 112 18 104/59 10/21 2129 120 104/62 10/21 2109 125 102/61 10/21 1946 98.5 155 18 102/64 97 Room Air Room Air 10/21 1748 101.1 10/21 1733 101.1 83 18 101/63 96 Room Air Room Air ED Intake and Output 10/22 0000 10/21 1200 Intake Total 5050 Output Total 200 Balance 4850 Intake, IV 5000 Intake, Oral 50 Number 1 Bowel Movements Output, Urine 200 Patient 215 lb Weight Weight Reported by Patient Measurement Method Allergies Coded Allergies: No Known Allergies (09/10/17) Reconcile Medications Allopurinol 300 MG TABLET 1 TAB PO DAILY URIC ACID (Reported) Alprazolam 0.5 MG TABLET 1 TAB PO QPM PRN ANXIETY (Reported) Atorvastatin Calcium 20 MG TABLET 1 TAB PO DAILY CHOLESTEROL (Reported) Azelastine HCl (Astepro) 205.5 MCG (0.15 %) SPRAY.PUMP 2 SPRAY NASB DAILY NASAL RUNNING (Reported) Cyanocobalamin (Vitamin B-12) (Unknown Strength) TABLET (Unknown Dose) PO DAILY SUPPLEMENT (Reported) Escitalopram Oxalate 5 MG TABLET 1 TAB PO PRN MENTAL HEALTH (Reported) Ibrutinib (Imbruvica) 140 MG CAPSULE 420 MG PO DAILY CLL (Reported) Losartan Potassium 50 MG TABLET 1 TAB PO DAILY HEART (Reported) Metoprolol Succinate 200 MG TAB.ER.24H 1 TAB PO DAILY HEART (Reported) Triage Note: PT TO ED WITH C/O DECREASED APPETITIE, AND PO INTAKE, "EXHAUSTED, UNABLE TO FUNCTION". HX CLL, DOCTOR LAMONTE IS ONCOLOGIST. PT C/O "SOMETHING WITH MY SINUSES, IT DRIPS IN THE BACK OF MY THROAT". TEMP IN TRIAGE 101.1 Triage Nurses Notes Reviewed? yes Onset: Abrupt Duration: day(s): (4), constant Timing: recent history Injury Environment: home Severity: moderate, severe Severity Numbers: 10 No Modifying Factors: none Associated Symptoms: cough HPI: 51-year-old male currently being treated for CLL on imbruvica presents to the ER for evaluation complaining of generalized malaise chills decreased appetite and weakness rhinorrhea congestion productive cough clear sputum for the past 4 days. No sick contacts. Patient has been visiting colleges with his son. He also reports to having diarrhea however attributed that to the chemotherapy pills that he is on. He denies nausea vomiting abdominal pain chest pain. He has not taken anything for his fever today. (Eulalio Rodriguez) Past History Travel History Traveled to [place] past 21 day No Medical History Any Pertinent Medical History? see below for history Neurological: NONE EENT: NONE Cardiovascular: hypertension, HYPERCHOLESTEROLEMIA Respiratory: NONE Gastrointestinal: NONE Hepatic: NONE Renal: NONE Musculoskeletal: NONE Psychiatric: NONE Endocrine: NONE Blood Disorders: anemia Cancer(s): CLL History of MRSA: No History of VRE: No History of CDIFF: No Surgical History Surgical History: non-contributory Psychosocial History Who do you live with Spouse What is your primary language [place] Tobacco Use: Never used ETOH Use: occasional use Illicit Drug Use: denies illicit drug use Family History Hx Contributory? No (Eulalio Rodriguez) Review of Systems Review of Systems Constitutional: Reports: no symptoms, see HPI. Comments Review of systems: See HPI, All other systems negative. Constitutional, chills fever HEENT: no sore throat congestion, Cardiovascular: No chest pain , no palpitation Skin: no rashes, no change in skin Respiratory: No dyspnea cough sputum no hemoptysis GI: No nausea no vomiting, diarrhea : No dysuria No hematuria, no frequency Muscle skeletal: No joint pain, no back pain Neurologic: , no headache Heme/endocrine: No bruising (Eulalio Rodriguez) Physical Exam Physical Exam General Appearance: well developed/nourished, alert, awake Comments: Well-developed well-nourished person in no acute distress HEENT: Normal EENT exam; PERRL, EOMI, . HEAD is atraumatic. moist mucous membranes. Neck: Supple,normal range of motion Back: Nontender, Full range of motion Cardiovascular: Tachycardic, irregular rate and rhythm, no murmurs Respiratory: Chest nontender.There were no bony deformities, no asymmetry. No respiratory distress. Patient speaking in full complete sentences. Breath sounds clear to auscultation bilaterally: NO W/R/R Abdomen: Soft, nontender nondistended, no appreciable organomegaly. Normal bowel sounds. No rebound/guarding Rectal: Heme negative stool. No mass/hemorrhoid, no fissure. Extremity: No edema, full range of motion of extremities Neuro: Alert oriented x3, motor sensory normal, There were no obvious focal neurologic abnormalities. Skin: No appreciable rash on exposed skin, skin is warm and dry. Psych: Mood and affect is normal, memory and judgment is normal. Core Measures ACS in differential dx? No CVA/TIA Diagnosis: No Sepsis Present: Yes Sepsis Focused Exam Completed? Yes (Eulalio Rodriguez) ED Sepsis Exam Date of Focused Sepsis Exam: 10/21/17 Time of Focused Sepsis Exam: 1937 Sepsis Cardiac Exam: Regular Rate/Rhythm Sepsis Resp Exam: CTA Sepsis Cap Refill Exam: <2 Sec Sepsis Peripheral Pulse Exam: Normal Sepsis Peripheral Pulse Location: Radial Sepsis Skin Color Exam: Normal for Ethnicity Skin Temp/Moisture Exam: Warm/Dry (Eulalio Rodriguez) Progress Differential Diagnoses I considered the following diagnoses in my evaluation of the patient: Influenza cellulitis UTI dehydration electrolyte abnormality gastroenteritis medication side effect diverticulitis] Plan of Care: Orders Procedure Date/time Status Heart Healthy Diet 10/22 B Active TROPONIN LEVEL 10/22 0900 Active EKG 10/22 0900 Active CBC WITHOUT DIFFERENTIAL 10/22 0600 Active ICU LAB BUNDLE 10/22 0500 Active TROPONIN LEVEL 10/22 0200 Active EKG 10/22 0200 Active ICU LAB BUNDLE 10/21 2300 Complete VRE ACTIVE SURVIELLANCE 10/22 2235 Active ACTIVE SURVEILLANCE NARES 10/22 2235 Active CULTURE,URINE 10/21 2205 Active Pathway - chart 10/21 2138 Active ECHOCARDIOGRAM 10/21 2138 Active SPECIMEN TO BE OBTAINED 10/21 2118 Active Add-on Test (ER Only) 10/21 2048 Active Patient Data 10/21 2030 Active ED Holding Orders 10/21 2024 Active Vital Signs 10/21 2024 Active Code Status 10/21 2024 Active Admit to inpatient 10/22 2023 Active Add-on Test (ER Only) 10/22 2023 Active STREP PNEUMO URINARY ANTIGEN 10/21 2012 Complete LEGIONELLA URINARY ANTIGEN 10/21 2012 Complete URINE TOTAL PROT/CREAT RATIO 10/21 2012 Complete URINE OSMOLALITY 10/21 2012 Complete URINE LYTES, SPOT 10/21 2012 Complete EKG 10/21 1906 Active TSH REFLEX 10/21 1754 Complete TROPONIN LEVEL 10/21 1754 Complete PARTIAL THROMBOPLASTIN TIME 10/21 1754 Complete PROTHROMBIN TIME 10/21 1754 Complete SERUM OSMOLALITY 10/21 1754 Complete BLOOD CULTURE 10/21 1744 Active Intake & Output 10/21 1739 Active URINALYSIS 10/21 1737 Complete RAPID VIRAL INFLUENZA A 10/21 1735 Complete MAGNESIUM 10/21 1735 Complete LACTIC ACID 10/21 1735 Complete COMPREHENSIVE METABOLIC PANEL 10/21 1735 Complete CBC WITHOUT DIFFERENTIAL 10/21 1735 Complete Pathway - chart 10/21 UNK Active House Staff 10/21 UNK Active Lab Add-on Test 10/21 UNK Active VTE Mechanical Prophylaxis 10/21 UNK Active Vital Signs 10/21 UNK Active Intake & Output 10/21 UNK Active Hemoccult 10/21 UNK Active Activity/Ambulation 10/21 UNK Active PHYSICIAN CONSULT 10/21 UNK Active Current Medications Sig/Sai Start time Last Medication Dose Stop Time Status Admin Azithromycin 500 MG 1800 10/22 1800 AC (Zithromax) Dextrose/Water 250 ML (D5W) Atorvastatin Calcium 20 MG DAILY 10/22 09 CAN (Lipitor) Escitalopram Oxalate 5 MG DAILY 10/22 0900 AC (Lexapro) Ceftriaxone Sodium 1,000 MG 10/21 AC 10/21 (Rocephin) 2309 Magnesium Sulfate 1 GM Q2H 10/210 AC 10/22 (Mag Sulfate in D5) 10/22 0159 0010 Dextrose/Water 100 ML (D5W) Heparin Sodium/ 25,000 UNIT Q24H 10/21 2145 AC 10/21 Dextrose 2137 (Heparin) Dextrose/Water 500 ML (D5W) Sodium Chloride 1,000 ML ONCE ONE 10/21 2144 AC 10/21 (Normal Saline 0.9%) 10/22 0424 2309 Alprazolam 0.5 MG QPM PRN 10/21 2129 AC (Xanax) 10/28 2128 Heparin Sodium/ 25,000 UNIT ONCE ONE 10/21 2030 CAN Dextrose 10/21 2030 (Heparin) Dextrose/Water 500 ML (D5W) Metoprolol Tartrate 200 MG ONCE ONE 10/21 1844 CAN (Lopressor) 10/21 1845 Laboratory Tests 10/21/17 2333: Anion Gap 13, Estimated GFR 38 L, Glucose 127 H, Calcium 6.9 L, Phosphorus 5.3 H, Magnesium 1.8, Total Bilirubin 0.6, AST 88 H, ALT 78 H, Albumin 2.9 L 10/21/172034: Lactic Acid Cancelled 10/21/172012: Urine Color YEL, Urine Clarity HAZY H, Urine pH 5.5, Ur Specific [place] >= 1.030, Urine Protein 100 H, Urine Ketones NEG, Urine Nitrite NEG, Urine Bilirubin NEG@ICTO, Urine Urobilinogen 0.2, Ur Leukocyte Esterase NEG, Ur Microscopic SEDIMENT EXAMINED, Urine RBC 1-3, Urine WBC 1-3 H, Ur Epithelial Cells RARE, Urine Bacteria MOD H, Hyaline Casts 5-10 H, Urine Hemoglobin NEG, Urine Glucose NEG 10/21/172012: Urine Osmolality 562, Ur Random Creatinine 543.6, U Random Total Protein 178 H, Ur Random Sodium 16 L, Ur Random Potassium 76.3, Protein/Creatinin Ratio 0.3 H , Fraction Sodium Excret 0.0 10/21/17 1754: Anion Gap 18 H, Estimated GFR 32 L, BUN/Creatinine Ratio 16.4, Glucose 125 H, Serum Osmolality 281 L, Lactic Acid 1.3, Calcium 9.0, Magnesium 1.5 L, Total Bilirubin 1.0, AST 76 H, ALT 91 H, Alkaline Phosphatase 207 H, Troponin I 0.04, Total Protein 6.2 L, Albumin 4.1, Globulin 2.1, Albumin/Globulin Ratio 2.0, TSH &T3 &Free T4 Intrp 4.000, PT 13.7 H, INR 1.25 H, APTT 32, CBC w Diff MAN DIFF ORDERED, RBC 3.72 L, MCV 89.6, MCH 29.7, MCHC 33.2, RDW 18.9 H, MPV 9.2, Gran % 41.9 L, Lymphocytes % 52.4 H, Monocytes % 5.6, Eosinophils % 0, Basophils % 0.1, Absolute Granulocytes 10.5 H, Segmented Neutrophils 39 L, Band Neutrophils 1, Absolute Lymphocytes 13.2 H, Lymphocytes 51, Monocytes 8, Absolute Monocytes 1.4 H, Absolute Eosinophils 0, Basophils 1, Absolute Basophils 0, Platelet Estimate VERIFIED BY SMEAR, Normochromic RBCs VERIFIED, Anisocytosis 1+, Fld Total RBCs Counted 100 Microbiology 10/21 2328 URINE ROUT: Urine Culture - RECD 10/22 2235 UPPER RESP: Surveillance Culture - ORD 10/22 2235 GI: Surveillance Culture - ORD 10/21 2012 URINE ROUT: Legionella Antigen - COMP LEGIONELLA URINARY ANTIGEN 10/21 2012 URINE ROUT: Streptococcus pneumoniae Antigen (M - COMP 10/21 191 BLOOD: Blood Culture - RECD 10/21 1848 NASOPHARYN: Influenza Virus A & B Rapid Smear - COMP 10/21 1848 BLOOD: Blood Culture - RECD I discussed with patient his x-ray findings. IV Toradol ordered. Case discussed with Dr. Elsa Beyer azithromycin IV ordered MEL IN ROOM TO EVAL GIVEN NEW AFIB ON EKG, LOPRESSOR 5MG IV WILL BE GIVEN, HOLDING AT THSI TIME SECONDARY TO PTS BP, CURRENTLY RECEIVING 1ST UNIT OF BLOOD The patient's oncologist Dr. culp 2024- Case discussed with Dr. Murillo, agrees with plan for hydration advised to give patient Cardizem and start heparin drip I was unaware that the hospital has no IV Cardizem at this time I spoke with cardiology case discussed with Dr. oliveira-IV Lopressor 5 mg ordered- 2129 i spoke withdr geovanna cedillo/onc-agrees withp rick will consult Diagnostic Imaging: Viewed by Me: Radiology Read. Discussed w/RAD: Radiology Read. Radiology Impression: PATIENT: LAURITA AMIN PRESENT AGE: 51 PATIENT ACCOUNT NO: [id number] : 67 LOCATION: [facility] ORDERING PHYSICIAN: Bonnie BLACK SERVICE DATE: 10/21/17 EXAM TYPE: RAD - XRY-CHEST XRAY, TWO VIEWS EXAMINATION: CHEST 2 VIEWS CLINICAL INFORMATION: Fever , cough, malaise. CLL. COMPARISON: 08/22/2017. TECHNIQUE: PA and lateral views of the chest were obtained. FINDINGS: The cardiac silhouette is not enlarged. The mediastinal and hilar contours are unremarkable. There are neither pleural effusions nor pneumothoraces. There is a right upper lobe infiltrate present. There is mild bibasilar atelectasis. The osseous structures are stable. IMPRESSION: Right upper lobe infiltrate concerning for pneumonia. Recommendation is for a followup chest series to be obtained following treatment and/or resolution of symptoms to assure resolution of this appearance. DICTATED BY: Odilon Lopes MD DATE/TIME DICTATED:10/21/171819 PATIENT SERVICES CLERK:SANG DATE/TIME TRANSCRIBED:10/21/171819 CONFIDENTIAL, DO NOT COPY WITHOUT APPROPRIATE AUTHORIZATION. <Electronically signed in Other Vendor System> SIGNED BY: Odilon Lopes MD 10/21/171823 Initial ED EKG: afib at 130, no acute st seg changes, normal axis Prior EKG: changed (09/2017) (Eulalio Rodriguez) Differential Diagnoses I considered the following diagnoses in my evaluation of the patient: (Waqas FALLON,Dejuan Gutierrez) Departure Departure Disposition: STILL A PATIENT Condition: Stable Clinical Impression Primary Impression: Pneumonia Secondary Impressions: EUGENE (acute kidney injury), New onset a-fib, Sepsis Referrals: Mark Mello MD (PCP/Family) Departure Forms: Customer Survey General Discharge Information Admission Note Documentation of Exam: Documentation of any treatments & extenuating circumstances including Concerns Regarding Discharge (functional status, medication knowledge or non-compliance, living conditions, etc.) that warrant an admission rather than observation: Trend labs and cultures IV antibiotics IV heparin cardiology consult, infectious disease consult oncology consult premature discharge remained medically harmful (Eulalio Rodriguez) Admission Note Spoke With: Savita Kulkarni MD Documentation of Exam: Documentation of any treatments & extenuating circumstances including Concerns Regarding Discharge (functional status, medication knowledge or non-compliance, living conditions, etc.) that warrant an admission rather than observation: PA/NETWORK/TELECOM ENGINEER Co-Sign Statement Statement: ED Attending supervision documentation- [x] I saw and evaluated the patient. I have also reviewed all the pertinent lab results and diagnostic results. I agree with the findings and the plan of care as documented in the PA's/NETWORK/TELECOM ENGINEER's documentation. [] I have reviewed the ED Record and agree with the PA's/NETWORK/TELECOM ENGINEER's documentation. [] Additions or exceptions (if any) to the PAs/NETWORK/TELECOM ENGINEER's note and plan are summarized below: [] I saw and personally examined the patient and I agree with the PAs evaluation. He is a 51-year-old male with a history of CLL. He presents with severe myalgias and weakness over the past 4-5 days. He has severe leukocytosis and is in new onset rapid A. fib. He is given IV fluids. IV Cardizem, cardiology consultation will be obtained he's been pancultured. He is being admitted to the ICU for further care. (Waqas FALLON,Dejuan Gutierrez) Critical Care Note Critical Care Note Critical Care Time: 30-74 min (Serge BLACK,Eulalio)
[2017-10-21 19:04] LABS: ABSOLUTE BASOPHIL COUNT 0 /CUMM (0.0-0.2); ABSOLUTE EOSINOPHIL COUNT 0 /CUMM (0.0-0.7); ABSOLUTE GRANULOCYTE CT 10.5 /CUMM (1.4-6.5); ABSOLUTE LYMPH COUNT 13.2 /CUMM (1.2-3.4); ABSOLUTE MONOCYTE COUNT 1.4 /CUMM (0.10-0.60); BASOPHIL % 0.1 % (0.0-2.0); EOSINOPHIL % 0 % (0-5); GRANULOCYTE % 41.9 % (42.2-75.2); HEMATOCRIT 33.3 % (42-52); MEAN CORPUSCULAR HGB 29.7 PG (27.0-31.0); MEAN CORPUSCULAR HGB CONC 33.2 G/DL (33.0-37.0); MEAN CORPUSCULAR VOLUME 89.6 FL (80.0-94.0); MEAN PLATELET VOLUME 9.2 FL (7.4-10.4); PLATELET COUNT 161 /CUMM (130-400); RBC DISTRIBUTION WIDTH 18.9 % (11.5-14.5); RED BLOOD CELL CT 3.72 /CUMM (4.70-6.10); WHITE BLOOD CELL COUNT 25.2 /CUMM (4.8-10.8)
[2017-10-21] MEDS ORDERED: IMBRUVICA140 M1 PO (19:53)
[2017-10-21] MEDS ORDERED: ALLOPURINOL300 M1 PO (19:58)
[2017-10-21] MEDS ORDERED: ESCITALOPRAM OXA5 MG PO (19:59)
[2017-10-21] MEDS ORDERED: ALPRAZOLAM0.5 M4 PO (19:59)
[2017-10-21] MEDS ORDERED: ASTEPRO205.5 MCG1 NASB (20:00)
[2017-10-21] MEDS ORDERED: VITAMIN B-121000 MC3 PO (20:01)
[2017-10-21 20:49] LABS: PT 13.7 SEC (9.4-12.5); PTT 32 SEC (25-37)
--- NOTE | 2017-10-21 21:12 | History & Physical ---
Omar Rubi 10/21/172110: General Information and HPI MD Statement: I have seen and personally examined LAURITA AMIN and documented this H&P. The patient is a 51 year old M who presented with a patient stated chief complaint of diarrhea, fever. Source of Information: patient, family, old records Exam Limitations: unable to give history History of Present Illness: Mr Amin is a 51 year old man with a past medical history of CLL s/p Fludarabine +Cyclophosphamide+Rituxan ( dx'ed 02/2014) was in remission until 08/21; was treated at for pancytopenia w/ BM+LN biopsy positive for del (11) and del (13 ), HTN, HLD came to the hospital for chief concern of generalized malaise, fever, chills, decreased appetite, weakness, diarrhea and cough 4 days. He was last known to be normal until a few weeks ago, and developed sinus congestion and post nasal drip which was evaluated by the ENT surgeon. He developed generalized malaise, body aches and chills almost a week ago. Also developed productive cough, with mucoid sputum. No CP/palpitations/dyspnea. Reported inability to do his daily chores seconday to weakness and not dyspnea. Around four days ago, he developed diarrhea, frequency of upto 4-5 x per day and not associated w/ ryan, brbpr. Reported occassional orthostatic dizziness, but no LOC/syncope. No pedal edema, dysurea. No nausea or vomiting, but reported decreased po intake and loss of apetite. No night sweats. No sick contacts. He has been on BTKI since 09/18, and has been tolerating well. Allergies/Medications Allergies: Coded Allergies: No Known Allergies (09/10/17) Home Med list Allopurinol 300 MG TABLET 1 TAB PO DAILY URIC ACID (Reported) Alprazolam 0.5 MG TABLET 1 TAB PO QPM PRN ANXIETY (Reported) Atorvastatin Calcium 20 MG TABLET 1 TAB PO DAILY CHOLESTEROL (Reported) Azelastine HCl (Astepro) 205.5 MCG (0.15 %) SPRAY.PUMP 2 SPRAY NASB DAILY NASAL RUNNING (Reported) Cyanocobalamin (Vitamin B-12) (Unknown Strength) TABLET (Unknown Dose) PO DAILY SUPPLEMENT (Reported) Escitalopram Oxalate 5 MG TABLET 1 TAB PO PRN MENTAL HEALTH (Reported) Ibrutinib (Imbruvica) 140 MG CAPSULE 420 MG PO DAILY CLL (Reported) Losartan Potassium 50 MG TABLET 1 TAB PO DAILY HEART (Reported) Metoprolol Succinate 200 MG TAB.ER.24H 1 TAB PO DAILY HEART (Reported) Past History Travel History Traveled to [place] past 21 day No Medical History Neurological: NONE EENT: NONE Cardiovascular: hypertension, hyperlipidemia Respiratory: NONE Gastrointestinal: NONE Renal: NONE Musculoskeletal: NONE Psychiatric: NONE Endocrine: NONE Blood Disorders: pancytopenia Cancer(s): CLL History of MRSA: No History of VRE: No History of CDIFF: No Surgical History Surgical History: non-contributory Past Family/Social History Family History Relations & Conditions if any MOTHER (Arrythmias ( type not known )). Psychosocial History Where do you live? Home Smoking Status: Never Smoked ETOH Use: occasional use Illicit Drug Use: denies illicit drug use Functional Ability ADLs Independent: dressing, eating, toileting, bathing. 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 EENTM: Denies: visual changes. Cardiovascular: Denies: chest pain, edema, palpitations, syncope. Respiratory: Reports: cough, sputum production. Denies: short of breath. GI: Reports: diarrhea, changes in stool. Denies: abdominal pain, melena, nausea, bloody stool, vomiting. Genitourinary: Denies: dysuria. Musculoskeletal: Denies: back pain. Skin: Denies: change in skin color. Neurological/Psychological: Denies: paresthesia. Hematologic/Endocrine: Denies: bruising. Exam & Diagnostic Data Last 24 Hrs of Vital Signs/I&O Vital Signs Date Time Temp Pulse Resp B/P B/P Pulse O2 O2 Flow FiO2 Mean Ox Delivery Rate 10/21 2157 98.4 114 18 101/66 97 Room Air Room Air 10/21 2137 98.5 112 18 104/59 10/21 2128 120 104/62 10/21 2108 125 102/61 10/21 1946 98.5 155 18 102/64 97 Room Air Room Air 10/21 1748 101.1 10/21 1733 101.1 83 18 101/63 96 Room Air Room Air Physical Exam General Appearance Alert, Oriented X3, Cooperative, No Acute Distress Skin No Rashes, No Breakdown, No Significant Lesion Skin Temp/Moisture Exam: Warm/Dry Sepsis Skin Exam (color): Normal for Ethnicity HEENT Atraumatic, PERRLA, EOMI, DRY MUCOUS MEMBRANES Neck Supple, No JVD, No thryomegaly, +2 Carotid Pulse wo Bruit Lymphatic Axillary nl, Cervical nl Cardiovascular Normal S1, Normal S2, No Murmurs, Gallops, Rubs, IRREGULAR RHYTHM Lungs RIGHT BASILAR CRACKLES Abdomen Normal Bowel Sounds, Soft, No Tenderness, No Hepatospenomegaly, No Masses Neurological Normal Speech, Strength at 5/5 X4 Ext, Normal Tone, Sensation Intact, Cranial Nerves 3-12 NL, Reflexes 2+ Extremities No Clubbing, No Cyanosis, No Edema, Normal Pulses, No Tenderness/ Swelling Vascular Normal Pulses, Pulses Symmetrical Sepsis Peripheral Pulse Location: Dorsalis Pedis Sepsis Peripheral Pulse Exam: Normal Sepsis Cap Refill Exam: <2 Sec Last 24 Hrs of Labs/Suhail: Laboratory Tests 10/21/17 2333: Anion Gap 13, Estimated GFR 38 L, Glucose 127 H, Calcium 6.9 L, Phosphorus 5.3 H, Magnesium 1.8, Total Bilirubin 0.6, AST 88 H, ALT 78 H, Albumin 2.9 L 10/21/172034: Lactic Acid Cancelled 10/21/172012: Urine Color YEL, Urine Clarity HAZY H, Urine pH 5.5, Ur Specific Risco >= 1.030, Urine Protein 100 H, Urine Ketones NEG, Urine Nitrite NEG, Urine Bilirubin NEG@ICTO, Urine Urobilinogen 0.2, Ur Leukocyte Esterase NEG, Ur Microscopic SEDIMENT EXAMINED, Urine RBC 1-3, Urine WBC 1-3 H, Ur Epithelial Cells RARE, Urine Bacteria MOD H, Hyaline Casts 5-10 H, Urine Hemoglobin NEG, Urine Glucose NEG 10/21/172012: Urine Osmolality 562, Ur Random Creatinine 543.6, U Random Total Protein 178 H, Ur Random Sodium 16 L, Ur Random Potassium 76.3, Protein/Creatinin Ratio 0.3 H , Fraction Sodium Excret 0.0 10/21/17 175: Anion Gap 18 H, Estimated GFR 32 L, BUN/Creatinine Ratio 16.4, Glucose 125 H, Serum Osmolality 281 L, Lactic Acid 1.3, Calcium 9.0, Magnesium 1.5 L, Total Bilirubin 1.0, AST 76 H, ALT 91 H, Alkaline Phosphatase 207 H, Troponin I 0.04, Total Protein 6.2 L, Albumin 4.1, Globulin 2.1, Albumin/Globulin Ratio 2.0, TSH &T3 &Free T4 Intrp 4.000, PT 13.7 H, INR 1.25 H, APTT 32, CBC w Diff MAN DIFF ORDERED, RBC 3.72 L, MCV 89.6, MCH 29.7, MCHC 33.2, RDW 18.9 H, MPV 9.2, Gran % 41.9 L, Lymphocytes % 52.4 H, Monocytes % 5.6, Eosinophils % 0, Basophils % 0.1, Absolute Granulocytes 10.5 H, Segmented Neutrophils 39 L, Band Neutrophils 1, Absolute Lymphocytes 13.2 H, Lymphocytes 51, Monocytes 8, Absolute Monocytes 1.4 H, Absolute Eosinophils 0, Basophils 1, Absolute Basophils 0, Platelet Estimate VERIFIED BY SMEAR, Normochromic RBCs VERIFIED, Anisocytosis 1+, Fld Total RBCs Counted 100 Microbiology 10/21 2328 URINE ROUT: Urine Culture - RECD 10/22 2235 UPPER RESP: Surveillance Culture - ORD 10/22 2235 GI: Surveillance Culture - ORD 10/21 2012 URINE ROUT: Legionella Antigen - COMP LEGIONELLA URINARY ANTIGEN 10/21 2012 URINE ROUT: Streptococcus pneumoniae Antigen (M - COMP 10/21 191 BLOOD: Blood Culture - RECD 10/21 1848 NASOPHARYN: Influenza Virus A & B Rapid Smear - COMP 10/21 1848 BLOOD: Blood Culture - RECD Diagnostic Data EKG Results Afib, HR 130, Normal axis, No STTWI. CXR Results Right upper lobe infiltrate concerning for pneumonia. Assessment/Plan Assessment: Mr Amin is a 51 year old man with a past medical history of CLL s/p Fludarabine +Cyclophosphamide+Rituxan ( dx'ed 02/2014) was in remission until 08/21; was treated at for pancytopenia w/ BM+LN biopsy positive for del (11) and del (13 ), HTN, HLD came to the hospital for chief concern of generalized malaise, fever, chills, decreased appetite, weakness, diarrhea and cough who was found to be in Atrial fibrillation w/ RVR likely secondary to a response of pneumonia. At the time of admission-Temperature 98.5 ( Tmax 101.1), pulse rate 183, blood pressure 101/63, pulse ox 96% on room air. Pertinent lab findings: W BC 25.2, hemoglobin 11.1, platelet count 161, Sodium 131, potassium 3.2, chloride 94, bicarbonate 19, anion gap 18, BP 136, creatinine 2.2 (baseline 1.1), lactic acid 1.3, admission 1.5, liver chemistries -AST 76, ALT 91, alkaline phosphatase 207. Urine legionella antigen positive. Problem list: #1 community-acquired pneumonia #2 leukocytosis #3 sepsis #4 atrial fibrillation with rapid ventricular response #5 history of CLL #6 anion gap metabolic acidosis #7 abnormal liver chemistries #8 acute kidney injury #9 hypokalemia #10 hypomagnesemia #11 hyponatremia Etiology in this case who presented with new onset atrial fibrillation, likely secondary to infectious process in his lungs-likely community-acquired pneumonia from Legionella antigen. Severely dehydrated likely secondary to diarrhea, that may have led to severe electorylet abnormalities including hypomagnesemia, hypokalemia, exacerbating his arrhythmia. The etiology for anion gap metabolic acidosis is unclear, but he may be losing a lot of potassium and bicarbonate secondary to diarrhea leading to acidosis, which in addition to renal injury is likely causing anion gap metabolic acidosis. Acute kidney injury, with an acute increase in serum creatinine to 2.2 with last serum creatinine check that was 2 days ago was 1.0, indicates likely a prerenal injury sec to dehydration. He is being treated with tyrosine kinase inhibitor at this time, Ibrutinib which is the drug of choice for refractory disease, who failed FCR tx. In regards to his infection, this likely is a community-acquired pneumonia secondary to his increased vulnerability to Legionella given his lowered cell-mediated immunity. Given his lab abnormalities of abnormal liver chemistries, hyponatremia, diarrhea or likely manifestations of Legionella infection. Plan: #1 respiratory-stable at this time. #2 infectious-would monitor for worsening leukocytosis, and granulocytosis. He has leukocytosis without any sign of granulocytosis, but has higher lymphocytes, indicates an abnormal pattern of inflammatory response to an acute infection. Would cover him with Zithromax and for the treatment of Legionella. Also treat with ceftriaxone, pending culture results. Follow up on lower respiratory cultures, urine cultures. There is no need for CAT scan at this time, unless clinical status worsens. As per the definition of sepsis, would qualify for the treatment of sepsis as per the guidelines with up to 3 L of fluids in the first few hours. #3 aviation operations specialist-blood pressure continues to be on the lower side, secondary to sepsis and atrial fibrillation. ChadVASC score of 1, but was started on AC as per the truck body builder. If he continues to be rate controlled, and reverts to normal sinus rhythm would defer to the truck body builder if anticoagulation is continued or would aspirin treatment suffice. The duration of atrial fibrillation, is unclear, which can qualify for anticoagulation before any cardioversion is attempted. Given scarcity of Cardizem, would use metoprolol 5 mg intravenously as needed for rate control. Hold antihypertensives at this time. Check TSHR. Check EKGs and trops, Echo. #4 hematology-continues to have leukocytosis, likely secondary to his treatment and CLL. There could be a contribution of immediate response to his pneumonia. Continue to follow closely. The patient starts to develop any anemia, thrombocytopenia would reassess the need for continuation of the current medication. Hold the TKI at this time. #5 metabolic-for the treatment of acute kidney injury, would need intravenous fluids at this time. Check urine osmolality, urine lites, urine protein/ creatinine ratio given elevated protein in urine. 4 hyponatremia, would check serum os polarity, urine osmolality. Replenish electrolytes accordingly, to keep potassium greater than 4, and magnesium greater than 2. Given his elevated liver enzymes, would follow closely. Hold statin at this time. Check uric acid , phosphorus, calcium to make sure that he is not any tumor lysis syndrome. Potassium can be lower in his case, given his diarrhea. Replenish potassium aggressively, since he has acidosis and diarrhea. If the patient has elevation of uric acid and phosphorus, would start him on allopurinol and fluids. #6 alimentary-heart healthy diet. #7 neurology-continue his home medications. Housekeeping: #1 DVT prophylaxis-heparin IV. #2 CODE STATUS-full code. ICU checklist #1 Central line- none #2 Arterial line- none #3 Grubbs catheter- none #4 Rectal tube- none #5 NG tube- none #6 IV/peripheral line- yes 10/21/17 #7 IV drips- Normal Saline #8 Vent settings - none #9 pressors- none. Consults- Cardiology. As Ranked By This Provider Problem List: 1. Sepsis 2. New onset a-fib 3. Pneumonia 4. EUGENE (acute kidney injury) Core Measures/Misc (03/20) Acute Coronary Syndrome ACS Diagnosis: No Congestive Heart Failure Congestive Heart Failure Diagnosis No Cerebrovascular Accident CVA/TIA Diagnosis: No VTE (View Protocol) VTE Risk Factors Acute Medical Illness No Mechanical VTE Prophylaxis d/t N/A MechProphylax Ordered No VTE Pharm Prophylaxis d/t NA PharmProphylax ordered Sepsis (View protocol) Sepsis Present: No Shad AMAYA, [facility] 10/21/17 2256: Attending MD Review Statement Attending Statement Attending MD Statement: examined this patient, discuss w/resident/PA/CAN FILLING ROOM SWEEPER, agreed w/resident/PA/CAN FILLING ROOM SWEEPER, discussed with family, reviewed images, amended to note Attending Assessment/Plan: 51 yo M with h/o HTN, HLD, anxiety, depression, chronic lymphocytic leukemia currently on Ibrutinib is here for evaluation of 4 day h/o fatigue, myalgias, productive cough, exertional dyspnea, diarrhea and loss of appetite. Patient has been evaluated by ENT/ emergency operator for nasal congestion and post nasal drip with no clear diagnosis. He saw Dr. Reyna on October 17 in follow up. Sonn after, he felt weak, lightheaded, diaphoretic alongwith above symptoms in the past few days. He called Dr. Reyna who advised him to come to the ER. Patient reports no sick contacts. Of note, patient was diagnosed with CLL in 2013, was treated with cyclophosphamide, fludarabine and rituxan with resolution of leukocytosis, lymphocytosis, LN and splenomegaly. He was in remission until Aug 2017, but relapsed. He is currently on Ibrutinib. He has been depressed with mood changes due to not having a job. He was started on lexapro by Dr. Reyna and he is also taking xanax as needed for anxiety. Vitals: Tmax 101.1, HR in 150's, BP 102/64, sats 97% RA. Exam: AAO, diaphoretic, ill-appearing, dry mucosa, Chest bibasilar crackles+, Heart S1S2 irregularly irregular, tachycardic, Abd soft, NT. LE no edema. Labs: WBC 25.2 (18.4 on October 17), band 1, H/H 11.1/33.3, Plt 161, INR 1.25, Na 131, K 3.2, bicarb 19, AG 18, BUN 36, creat 2.2 (1.1 on October 17), glucose 125, S. Osm 281, lactic acid 1.3, Mag 1.5, AST 76, ALT 91, trop neg. TSH normal. UA proteinuria, WBC 1-3. Flu swab negative. Urine legionella positive. CXR: right upper lobe infiltrate concerning for pneumonia. EKG: Afib with HR in 130's, no acute ST changes. Assessment and plan: 1. Sepsis due to right upper lobe pneumonia 2. Legionella pneumonia 3. New onset atrial fibrillation with rapid ventricular response 4. EUGENE with high anion gap metabolic acidosis 5. Hypokalemia and hypomagnesemia 6. History of CLL on Ibrutinib 7. Transaminitis ?sepsis 8. Anxiety, depression - Admit to ICU - Vitals Q1 Hour - Panculture - TRC nebs - IV ceftaz and azithro given in ER - Azithromycin should suffice for legionella pneumonia. - In addition, we will continue ceftriaxone to cover for possible strep - Aggressive IV fluid hydration to maintain a MAP > 65 - IV metoprolol for rate control due to nonavailability of cardizem - If HR does not improve with IV fluids and metoprolol, will consider verapamil 5 mg followed by verapamil drip - IV heparin per PTT protocol (Guaiac negative in ER) - Serial EKG and troponin to rule out ACS - Obtain echocardiogram - Cardio consult - Heme-Onc consult - CRCU consult - Trend renal functions and lactic acid - Hold ibrutinib - Hold losartan and allopurinol given EUGENE - Hold statin due to transaminitis - Resume metoprolol in AM - Continue lexapro and xanax as needed - Consider Psych consult when patient is hemodynamically stable - GI ppx IV pantoprazole DVT ppx IV heparin. Full code. TTS > 55 mins
--- NOTE | 2017-10-21 22:59 | Admission Certification ---
Admission Certification Certification Statement - As attending physician, I certify that at the time of - admission, based on clinical presentation, severity of - symptoms, need for further diagnostic testing and - therapeutic interventions, and risk of adverse outcomes - without in-hospital treatment, in my clinical assessment, - this patient requires an acute hospital stay for a minimum - of two nights or longer. I have also considered psychsocial - factors such as support system, advanced age, financial - issues, cognitive issues, and failed out-patient treatments, - past re-admission history, safety of patient, and lack of - compliance as applicable. Specific rationale supporting this admission is: Sepsis, right upper lobe pneumonia, new onset atrial fibrillation with rapid ventricular response in this patient with CLL on Ibrutinib.
[2017-10-22] VITALS: BP 100/70
[2017-10-22 04:52] LABS: PTT 35 SEC (25-37)
[2017-10-22 06:58] LABS: ABSOLUTE EOSINOPHIL COUNT 0 /CUMM (0.0-0.7); EOSINOPHIL % 0 % (0-5); WHITE BLOOD CELL COUNT 15.4 /CUMM (4.8-10.8)
[2017-10-22 07:26] LABS: ABSOLUTE BASOPHIL COUNT 0 /CUMM (0.0-0.2); ABSOLUTE GRANULOCYTE CT 7.5 /CUMM (1.4-6.5); ABSOLUTE LYMPH COUNT 7.1 /CUMM (1.2-3.4); ABSOLUTE MONOCYTE COUNT 0.8 /CUMM (0.10-0.60); BASOPHIL % 0.2 % (0.0-2.0); GRANULOCYTE % 48.4 % (42.2-75.2); MEAN CORPUSCULAR HGB 29.1 PG (27.0-31.0); MEAN CORPUSCULAR VOLUME 88.3 FL (80.0-94.0); MEAN PLATELET VOLUME 8.5 FL (7.4-10.4); PLATELET COUNT 134 /CUMM (130-400); RBC DISTRIBUTION WIDTH 18.7 % (11.5-14.5)
[2017-10-22 07:35] LABS: HEMATOCRIT 27.4 % (42-52)
[2017-10-22 08:00] VITALS: BP 110/80
--- NOTE | 2017-10-22 09:46 | PN- Resident CRCU ---
Yesenia AMAYA,[facility] 10/22/17 0946: Subjective HPI/CRCU Issues: #1 community-acquired pneumonia #2 leukocytosis #3 sepsis #4 atrial fibrillation with rapid ventricular response #5 history of CLL #6 anion gap metabolic acidosis - resolved #7 abnormal liver chemistries #8 acute kidney injury #9 hypokalemia #10 hypomagnesemia #11 hyponatremia 24 Hour Events: Patient eating his breakfast. Denies any chest pain,palpitaions, SOB or cough . Feels much improved compared to yesterday but anxious. Continues to have diarrhea. Objective Vital Signs & I&O Last 8 Hrs of Vitals and I&O: Intake & Output 10/23 1600 Intake Total 900 Output Total 600 Balance 300 Intake, IV 300 Intake, Oral 600 Number 200 Bowel Movements Output, Urine 600 Exam General Appearance: well developed/nourished, alert, awake, anxious Head: atraumatic, normal appearance Respiratory: normal breath sounds, chest non-tender, crackles Cardiovascular: irregularly irregular Gastrointestinal: normal bowel sounds, soft, non-tender Extremities: normal inspection, no edema Cranial Nerves: normal hearing, normal speech, PERRL Current Medications: Current Medications Sig/Sai Start time Last Medication Dose Route Stop Time Status Admin Acetaminophen 1,000 MG ONCE ONE 10/22 0445 DC N/A 1 UNIT IV 10/22 0459 Acetaminophen 650 MG ONCE ONE 10/22 0230 DC 10/22 PO 10/22 0231 0221 Acetaminophen 650 MG ONCE ONE 10/21 1745 DC 10/21 PO 10/21 1746 1748 Alprazolam 0.5 MG QPM PRN 10/21 2130 AC PO 10/289 Atorvastatin Calcium 20 MG DAILY 10/22 0900 CAN PO Atorvastatin Calcium 20 MG ONCE ONE 10/21 1845 DC 10/21 PO 10/21 1846 2319 Azithromycin 500 MG 1800 10/22 1800 DC Dextrose/Water 250 ML IV Azithromycin 500 MG 1800 10/22 1800 AC Sodium Chloride 250 ML IV Azithromycin 500 MG ONCE ONE 10/21 1845 DC 10/21 Dextrose/Water 250 ML IV 10/21 1944 2016 Ceftazidime 0 .STK-MED ONE 10/21 1932 DC .ROUTE Ceftazidime 1,000 MG ONCE ONE 10/21 1845 DC 10/21 IV 10/21 1842016 Ceftriaxone Sodium 0 .STK-MED ONE 10/21 2258 DC .ROUTE Ceftriaxone Sodium 1,000 MG 2200 10/21 2200 AC 10/21 IV 2309 Escitalopram Oxalate 5 MG DAILY 10/22 0900 AC 10/22 PO 1034 Heparin Sodium 5,000 UNIT Q8 10/22 0600 CAN (Porcine) SC Heparin Sodium 7,200 UNIT ONCE ONE 10/22 0545 DC 10/22 (Porcine) IV 10/22 0546 0530 Heparin Sodium 0 .STK-MED ONE 10/21 2124 DC (Porcine) .ROUTE Heparin Sodium 0 .STK-MED ONE 10/21 2124 DC (Porcine) .ROUTE Heparin Sodium 5,000 UNIT ONCE ONE 10/21 2030 DC 10/21 (Porcine) IV 10/21 203 2138 Heparin Sodium/ 25,000 UNIT Q24H 10/21 2145 AC 10/21 Dextrose IV 2137 Dextrose/Water 500 ML Heparin Sodium/ 25,000 UNIT ONCE ONE 10/21 2029 CAN Dextrose IV 10/21 2030 Dextrose/Water 500 ML Ketorolac 0 .STK-MED ONE 10/21 1932 DC Tromethamine .ROUTE Ketorolac 30 MG ONCE ONE 10/21 1845 DC 10/21 Tromethamine IV 10/21 184 2017 Losartan Potassium 50 MG ONCE ONE 10/21 1845 DC PO 10/21 1846 Magnesium Sulfate 1 GM .STK-MED ONE 10/22 0008 DC IV 10/22 0009 Magnesium Sulfate 1 GM Q2H 10/21 2200 DC 10/22 Dextrose/Water 100 ML IV 10/22 0159 0010 Metoprolol Succinate 200 MG DAILY 10/22 1149 AC 10/22 PO 1312 Metoprolol Tartrate 10 MG ONCE ONE 10/22 0315 DC 10/22 IV 10/22 0316 0312 Metoprolol Tartrate 0 .STK-MED ONE 10/21 212 DC IV Metoprolol Tartrate 5 MG ONCE ONE 10/21 2000 DC 10/21 IV 10/21 2001 2138 Metoprolol Tartrate 200 MG ONCE ONE 10/21 1845 CAN PO 10/21 1846 Potassium Chloride 10 MEQ Q1H 10/22 1445 AC IV 10/22 1546 Potassium Chloride 40 MEQ ONCE ONE 10/22 1445 UNVr PO 10/22 1446 Potassium Chloride 40 MEQ Q13H 10/22 1445 UNVr Sodium Chloride 1,000 ML IV Potassium Chloride 10 MEQ Q1H 10/22 0145 DC 10/22 IV 10/22 0246 0404 Potassium Chloride 60 MEQ ONCE ONE 10/22 0130 CAN PO 10/22 0131 Potassium Chloride 20 MEQ ONCE ONE 10/21 2330 DC 10/22 PO 10/21 2331 0010 Potassium Chloride 0 .STK-MED ONE 10/21 2258 DC PO Potassium Chloride 40 MEQ ONCE ONE 10/21 2200 DC 10/21 PO 10/21 2201 2309 Sodium Chloride 1,000 ML ONCE ONE 10/22 1015 DC 10/22 IV 10/22 2334 1034 Sodium Chloride 1,000 ML ONCE ONE 10/21 2145 DC 10/21 IV 10/22 0424 2309 Sodium Chloride 1,000 ML BOLUS ONE 10/21 2100 DC 10/21 IV 10/21 215 210 Sodium Chloride 1,000 ML BOLUS ONE 10/21 2100 DC 10/21 IV 10/21 215 210 Sodium Chloride 1,000 ML BOLUS ONE 10/21 2000 DC 10/21 IV 10/21 Sodium Chloride 1,000 ML BOLUS ONE 10/21 1845 DC 10/21 IV 10/21 Sodium Chloride 1,000 ML BOLUS ONE 10/21 1845 DC 10/21 IV 10/21 Impression/Plan Impression/Problem List Impression: Mr Nichols is a 51 year old man with a past medical history of CLL s/p Fludarabine +Cyclophosphamide+Rituxan ( dx'ed 02/2014) was in remission until 08/21; was treated at for pancytopenia w/ BM+LN biopsy positive for del (11) and del (13 ), HTN, HLD came to the hospital for chief concern of generalized malaise, fever, chills, decreased appetite, weakness, diarrhea and cough who was found to be in Atrial fibrillation w/ RVR likely secondary to a response of pneumonia. Problem list: #1 community-acquired pneumonia #2 leukocytosis #3 sepsis #4 atrial fibrillation with rapid ventricular response #5 history of CLL #6 anion gap metabolic acidosis #7 abnormal liver chemistries #8 acute kidney injury #9 hypokalemia #10 hypomagnesemia #11 hyponatremia The etiology for anion gap metabolic acidosis is unclear, but he may be losing a lot of potassium and bicarbonate secondary to diarrhea leading to acidosis, which in addition to renal injury is likely causing anion gap metabolic acidosis. Given his lab abnormalities of abnormal liver chemistries, hyponatremia, diarrhea or likely manifestations of Legionella infection. Plan: Respiratory - stable at this time. Infectious Community-acquired pneumonia; patient had a white blood cell count of 25.2 at the time of admission. He has leukocytosis without any sign of granulocytosis, but has higher lymphocytes, indicates an abnormal pattern of inflammatory response to an acute infection. Urine Legionella antigen positive, patient was started on ceftriaxone and azithromycin on admission. Patient was also septic at the time of admission(Fever and elevated WBC count with CAP) and received aggressive fluid hydration. - We will continue ceftriaxone and azithromycin - Continue gentle IV fluid hydration - Monitor WBC count (improved to 15.4 today but band neutrophils increased to of 13) - Follow-up blood cultures - f/u sputum cultures - Supplemental oxygen and TRC nebs if needed Circulatory Hypotension; Blood pressure was on the lower side likely secondary to sepsis and atrial fibrillation. Improved with IV fluids. - Continue gentle IV fluid hydration. - We will resume metoprolol. - Continue to hold Cozaar. Atrial fibrillation; New Onset. Likely secondary to sepsis. Could also be from Severe dehydration likely secondary to diarrhea, that may have led to severe electorylet abnormalities including hypomagnesemia, hypokalemia, exacerbating his arrhythmia. Troponins and EKG 3 were negative. Thyroid function normal. The duration of atrial fibrillation, is unclear, which can qualify for anticoagulation before any cardioversion is attempted.ChadVASC score of 1, but was satrted on IV heparin. Heart rate remains high in 120s, received IV metoprolol pushes(total of 15mg) last night. Will resume his home dose of PO metoprolol. Patient might need a cardizem drip if heart rate remains high. - Continue metoprolol 200mg daily. - Continue IV heparin drip. - Awaiting cardiology recommendations. - Echo; pending Hyperlipidemia; Given his elevated liver enzymes, would follow closely. Hold statin at this time. Hematology 1. Leukocytosis; Continues to have leukocytosis, likely secondary to his treatment for CLL. There could be a contribution of immediate response to his pneumonia. Continue to follow closely. If the patient starts to develop any anemia, thrombocytopenia would reassess the need for continuation of the current medication. - Continue to hold TKI at this time. 2. Anemia; hemoglobin dropped from 11.1 to 9.0. Patient is on IV heparin without any active signs of bleeding. Also TKI on hold. Will continue to monitor H&H if continues to drop down will stop H&H and will need to resume the TKI. - Repeat CBC in am. Metabolic- Hyponatremia; Improving. Serum Osm 281 with normal Urine Osm. Urine lytes normal. Continue to monitor. Hypokalemia; Could be secondary to diarrhea. Uric acid(normal) and Phos(5.3) which were checked to r/o tumor lysis syndrome. - Continue to monitor K and replete accordingly. AGMA; Resolved. Alimentary Heart healthy diet. Neurology Continue his home medications. Nephro EUGENE; With an acute increase in serum creatinine to 2.2 on admission with last serum creatinine check that was 2 days ago prior to admission was 1.0, likely a prerenal injury sec to dehydration. Improving with IV fluids. Urine osmolality , urine lites, urine protein/creatinine ratio were checked given elevated protein in urine, which were normal. - Continue gentle IV fluid hydration. - Repeat BP in a.m. DVT prophylaxis - ALPS and IV heparin. Patient is full code. Problem List: 1. Sepsis 2. New onset a-fib 3. EUGENE (acute kidney injury) 4. Pneumonia Pain Ratin Pain Location: NA Pain Goal: Remain pain free Pain Plan: Pain Pathway Tomorrow's Labs & Rationales: CBC(community-acquired pneumonia, leukocytosis with bandemia) ICU bundle( hyponatremia, hypo-kalemia, hypomagnesemia, transaminitis) Plan DVT/Prophylaxis: mechanical, pharmacological Malik Gaona 10/22/17 1229: Attending MD Review Statement Attending Sign Off Attending Cosign Statement: I have: examined this patient, reviewed [facility] EMR data, personally reviewd images, discussd w/resident/PA/GOVERNMENT AFFAIRS RESEARCHER, discussed mgmt plan w/anil, discussed mgmt plan w/pt, agreed w/resident/PA/GOVERNMENT AFFAIRS RESEARCHER. Other Findings: 51-year-old male w/ PMH of CLL, HTN, HLD is here for evaluation of fatigue, cough, exetional dyspnea, diarrhea, fever and loss of appetite. Patient on chemotherapy as per Hematology/oncology. Labs and imaging, medical records noted. WBC improvement. Hypokalemia. Cr with improvement. Patient admitted here for sepsis from pnuemonia and found to have new onset atrial fibrillation with EUGENE and hypokalemia with mild transaminiits. Patient continue with iv antibbitoics, f/u blood culture, sputum CS, IVF, A/c with iv heparin, Cardiology/pulmonary consult. Hold BP meds. Replace potassium >4. Achieve rate control with treatment of underlying cause. Hold chemotherapy and inform hem/onc.
[2017-10-22 13:34] LABS: PTT 93 SEC (25-37)
[2017-10-22 16:00] VITALS: BP 132/80
--- NOTE | 2017-10-22 17:09 | Cons- Cardiology ---
General Information and HPI Consulting Request Date of Consult: 10/22/17 Requested By: Shad AMAYA,Savita History of Present Illness: Mr. Nichols is a 51 year old male with history of hypertension, dyslipidemia and CLL. Over the past week he has noted profound weakness and exercise intolerance with mild shortness of breath. Otherwise he denies chest pain, pressure, tightness, lightheadedness or palpitations. He also reported fever/chills, anorexia, diarrhea and a cough. In the ER the patient was found to be in atrial fibrillation of unknown duration. The patient is now being treated for Legionella pneumonia. Allergies/Medications Allergies: Coded Allergies: No Known Allergies (09/10/17) Home Med List: Allopurinol 300 MG TABLET 1 TAB PO DAILY URIC ACID (Reported) Alprazolam 0.5 MG TABLET 1 TAB PO QPM PRN ANXIETY (Reported) Atorvastatin Calcium 20 MG TABLET 1 TAB PO DAILY CHOLESTEROL (Reported) Azelastine HCl (Astepro) 205.5 MCG (0.15 %) SPRAY.PUMP 2 SPRAY NASB DAILY NASAL RUNNING (Reported) Cyanocobalamin (Vitamin B-12) (Unknown Strength) TABLET (Unknown Dose) PO DAILY SUPPLEMENT (Reported) Escitalopram Oxalate 5 MG TABLET 1 TAB PO PRN MENTAL HEALTH (Reported) Ibrutinib (Imbruvica) 140 MG CAPSULE 420 MG PO DAILY CLL (Reported) Losartan Potassium 50 MG TABLET 1 TAB PO DAILY HEART (Reported) Metoprolol Succinate 200 MG TAB.ER.24H 1 TAB PO DAILY HEART (Reported) Review of Systems Review of Systems: occasional leg swelling Past History Travel History Traveled to [place] past 21 day No Medical History Blood Transfusion Hx: Yes Neurological: NONE EENT: NONE Cardiovascular: hypertension, hyperlipidemia Respiratory: NONE Gastrointestinal: NONE Renal: NONE Musculoskeletal: NONE Psychiatric: NONE Endocrine: NONE Blood Disorders: pancytopenia Cancer(s): CLL Surgical History Surgical History: non-contributory Family History Relations & Conditions If Any: MOTHER (Arrythmias ( type not known )). Psychosocial History Where Do You Live? Home Smoking Status: Never Smoked ETOH Use: occasional use Illicit Drug Use: denies illicit drug use Functional Ability ADLs Independent: dressing, eating, toileting, bathing. 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 Exam & Diagnostic Data Vital Signs and I&O Vital Signs Date Time Temp Pulse Resp B/P B/P Pulse O2 O2 Flow FiO2 Mean Ox Delivery Rate 10/22 1312 131 130/90 10/22 1200 99 Room Air Room Air 10/22 0800 98.2 118 18 110/80 95 Room Air Room Air 10/22 0800 96 Room Air Room Air 10/22 0500 99.0 10/22 0400 93 Room Air 10/22 0320 100.4 10/22 0312 155 24 151/82 10/22 0221 97.7 10/22 0000 95 Room Air 10/22 0000 98.0 106 20 100/70 95 Room Air 95% 10/21 2319 108/70 10/21 2252 97.0 103 18 108/70 97 Room Air Room Air 10/21 2222 116 119/57 10/21 2158 98.4 114 18 101/66 97 Room Air Room Air 10/21 2138 98.5 112 18 104/59 10/21 2129 120 104/62 10/21 2109 125 102/61 10/21 1946 98.5 155 18 102/64 97 Room Air Room Air 10/21 1748 101.1 10/21 1733 101.1 83 18 101/63 96 Room Air Room Air Intake & Output 10/22 1600 10/22 0800 10/22 0000 10/21 1600 10/21 0800 10/21 0000 Intake Total 1340 1545 5050 Output Total 1050 690 200 Balance 445 858 5311 Intake, IV 740 1285 5000 Intake, Oral 600 260 50 Number 3 1 Bowel Movements Output, Stool 500 400 Output, Urine 550 290 200 Patient 212 lb Weight Weight Bed scale Measurement Method Physical Exam: General: WD/overweight male in NAD; alert and oriented x 3 HEENT: NC/AT, PERRL, EOMI Neck: no JVD, no carotid bruit heart: irregularly irregular Lungs: clear bilaterally Abdomen: soft, NT, +ve bowel sounds Extremties: no edema Assessment/Plan Assessment/Plan * This patient has newly discovered atrial fibrillation with increased heart rate. This may be a minor contributor to his weakness and malaise. We will check a TSH and free T4 and will obtain an echocardiogram. * Begin Eliquis 5mg BID for stoke prophylaxis unless invasive procedures are anticipated. If so, IV heparin may be employed. * Obtain an echocardiogram * In consideration of the patient's cancer he may have a hypercoagulable state. Obtain a D-dimer and ABG. If abnormal then consider a ST angiogram to assess for a PE as the cause of the patient's atrial fibrillation. * Replete the patient's potassium. * Continue high dose Metoprolol for rate control as you are doing. Consult Acknowledgment - Thank you for your consult request.
--- NOTE | 2017-10-22 21:04 | CT SCAN REPORT ---
EXAMINATION: CT ANGIOGRAM OF THE CHEST WITH AND WITHOUT CONTRAST (CT PULMONARY ANGIOGRAM FOR PE) CLINICAL INFORMATION: Elevated d-dimer. COMPARISON: CT chest 08/22/2017. TECHNIQUE: Prior to contrast administration, noncontrast localization images were obtained. Subsequently, multidetector volumetric imaging was performed from the thoracic inlet to below the diaphragms following the administration of 95 mL Optiray 320 intravenous contrast. No contrast reaction reported. Sagittal, coronal, and MIP oblique sagittal reformatted images were obtained on the CT workstation, uploaded to PACS, and reviewed. Total exam dose-length product 972.33 mGy-cm. FINDINGS: QUALITY OF STUDY/CONTRAST BOLUS: Satisfactory PULMONARY ARTERIES: No central or segmental pulmonary emboli. THORACIC AORTA: No aneurysm or dissection. LUNG: Dense consolidation is scattered throughout the right upper and right lower lobes. Less significant interstitial prominence and airspace opacity is noted within the right middle and left lower lobes. PLEURA: Trace right pleural effusion. No left pleural effusion. MEDIASTINUM: Normal heart size. No pericardial effusion. Stable scattered small mediastinal and bilateral hilar lymph nodes, unchanged. No evidence of septal bowing or right heart strain. CHEST WALL/AXILLA: Stable enlarged bilateral axillary lymph nodes. No enlarged internal mammary lymph nodes. OSSEOUS STRUCTURES: No acute or suspicious osseous abnormality. UPPER ABDOMEN: Unremarkable. No reflux of contrast into the hepatic veins to suggest elevated right heart pressures. IMPRESSION: Multifocal pneumonia. No evidence for pulmonary embolism. Stable mediastinal, bilateral hilar and bilateral axillary lymphadenopathy. VTE: Negative for pulmonary embolism.
[2017-10-22 21:53] LABS: PTT 82 SEC (25-37)
[2017-10-23] VITALS: BP 100/60
[2017-10-23 06:06] LABS: ABSOLUTE BASOPHIL COUNT 0 /CUMM (0.0-0.2); ABSOLUTE EOSINOPHIL COUNT 0 /CUMM (0.0-0.7); ABSOLUTE GRANULOCYTE CT 4.4 /CUMM (1.4-6.5); ABSOLUTE LYMPH COUNT 5.2 /CUMM (1.2-3.4); ABSOLUTE MONOCYTE COUNT 0.8 /CUMM (0.10-0.60); BASOPHIL % 0.2 % (0.0-2.0); EOSINOPHIL % 0 % (0-5); HEMATOCRIT 27.5 % (42-52); MEAN CORPUSCULAR HGB 29.1 PG (27.0-31.0); MEAN CORPUSCULAR VOLUME 88.4 FL (80.0-94.0); MEAN PLATELET VOLUME 8.4 FL (7.4-10.4); PLATELET COUNT 153 /CUMM (130-400); RBC DISTRIBUTION WIDTH 18.8 % (11.5-14.5); RED BLOOD CELL CT 3.11 /CUMM (4.70-6.10); WHITE BLOOD CELL COUNT 10.4 /CUMM (4.8-10.8)
--- NOTE | 2017-10-23 06:54 | PN- Resident CRCU ---
Omar Rubi 10/23/17 0654: Subjective HPI/CRCU Issues: He feels improved. No new complaints. No dyspnea, or chest pain. 24 Hour Events: MAXIMUM TEMPERATURE 11.7 at 4 PM on 10/22/2005 18 Heart rate ranging between 102-128 Atrial fibrillation Respiratory rate 18-32 Blood pressure-systolic range 112-151, diastolic 62-92 Pulse ox 99-100% on room air. Drips IV heparin saline with 40 KCl Input in the last 24 hours 1788 mL, output 1750 mL Total balance today at 1788, 1750 mL. Objective Vital Signs & I&O Last 8 Hrs of Vitals and I&O: Intake & Output 10/23 0800 Intake Total 708 Output Total Balance 708 Intake, IV 508 Intake, Oral 200 Number 2 Bowel Movements Patient 219 lb Weight Weight Bed scale Measurement Method Exam General Appearance: alert Other Physical Findings: General Exam: AAOx3, No acute distress, Skin: No rashes, no breakdown; HEENT: PERRLA, EOMI;Neck: Supple, No JVD; No cervical lymphadenopathy;CVS: Reg Rate, Normal S1,S2, No MGR;Resp: Normal air entry, ronchi+rales on the Right side; Abdomen: Soft, No tenderness, Normal Bowel Sounds;Neuro: Normal Speech, Strength 5/5 b/l x 4 extremities, Sensation intact, CN III-XII NL, Reflexes 2+; Extremities: No cyanosis, no pedal edema Current Medications: Current Medications Sig/Sai Start time Last Medication Dose Route Stop Time Status Admin Alprazolam 0.5 MG QPM PRN 10/21 2129 AC PO 10/28 2128 Apixaban 5 MG BID 10/22 2144 AC 10/23 PO 0805 Apixaban 5 MG BID 10/22 2100 DC PO Azithromycin 500 MG 1800 10/22 1800 DC Dextrose/Water 250 ML IV Azithromycin 500 MG 1800 10/22 1800 AC 10/22 Sodium Chloride 250 ML IV 1800 Ceftriaxone Sodium 1,000 MG 0 10/21 2199 AC 10/22 IV 2237 Escitalopram Oxalate 5 MG DAILY 10/22 0900 AC 10/23 PO 0806 Heparin Sodium/ 25,000 UNIT Q24H 10/21 2144 DC 10/21 Dextrose IV 2137 Dextrose/Water 500 ML Ibuprofen 600 MG ONCE ONE 10/22 1630 DC 10/22 PO 10/22 1631 1630 Metoprolol Succinate 200 MG DAILY 10/22 1149 AC 10/23 PO 0806 Potassium Chloride 40 MEQ Q13H 10/22 1445 DC 10/23 Sodium Chloride 1,000 ML IV 0807 Impression/Plan Impression/Problem List Impression: Mr Nichols is a 51 year old man with a past medical history of CLL s/p Fludarabine +Cyclophosphamide+Rituxan ( dx'ed 02/2014) was in remission until 08/21; was treated at for pancytopenia w/ BM+LN biopsy positive for del (11) and del (13 ), HTN, HLD came to the hospital for chief concern of generalized malaise, fever, chills, decreased appetite, weakness, diarrhea and cough who was found to be in Atrial fibrillation w/ RVR likely secondary to a response of pneumonia. Problem list: #1 community-acquired pneumonia #2 leukocytosis #3 sepsis #4 atrial fibrillation with rapid ventricular response #5 history of CLL #6 anion gap metabolic acidosis #7 abnormal liver chemistries #8 acute kidney injury #9 hypokalemia #10 hypomagnesemia #11 hyponatremia Pertinent lab findings in the last 24 hours: W BC 10.4, platelets 153, hemoglobin 9.1, hematocrit 27.5. Sodium 133, potassium 4.1, chloride 109, bicarbonate 15 (likely from diarrhea) AST 76 (10/21/2017-->271 (10/23/2017) ALT 91(10/21/2017-->279(10/23/2017) Alkaline phosphatase 207(10/21/2017--> pending (10/23/2017). The etiology for anion gap metabolic acidosis is unclear, but he may be losing a lot of potassium and bicarbonate secondary to diarrhea leading to acidosis, which in addition to renal injury is likely causing anion gap metabolic acidosis. Given his lab abnormalities of abnormal liver chemistries, hyponatremia, diarrhea or likely manifestations of Legionella infection. Plan: Respiratory - stable at this time. Infectious Community-acquired pneumonia; patient had a white blood cell count of 25.2 at the time of admission. He has leukocytosis without any sign of granulocytosis, but has higher lymphocytes, indicates an abnormal pattern of inflammatory response to an acute infection. Urine Legionella antigen positive, patient was started on ceftriaxone and azithromycin on admission. Patient was also septic at the time of admission(Fever and elevated WBC count with CAP) and received aggressive fluid hydration. - We will continue ceftriaxone and azithromycin - Continue gentle IV fluid hydration - Follow-up blood cultures - f/u sputum cultures - Supplemental oxygen and TRC nebs if needed Circulatory Hypotension; Blood pressure was on the lower side likely secondary to sepsis and atrial fibrillation. Improved with IV fluids. - Continue gentle IV fluid hydration. - We will resume metoprolol. - Continue to hold Cozaar. Atrial fibrillation; New Onset. Likely secondary to sepsis. Could also be from Severe dehydration likely secondary to diarrhea, that may have led to severe electorylet abnormalities including hypomagnesemia, hypokalemia, exacerbating his arrhythmia. Troponins and EKG 3 were negative. The duration of atrial fibrillation, is unclear, which can qualify for anticoagulation before any cardioversion is attempted.ChadVASC score of 1, but was satrted on IV heparin. Heart rate remains high in 120s, received IV metoprolol pushes(total of 15mg) last night. Will resume his home dose of PO metoprolol. Patient might need a cardizem drip if heart rate remains high. - Continue metoprolol 200mg daily. - IV heparin drip has been changed to - Awaiting cardiology recommendations. - Echo; pending Hyperlipidemia; Given his elevated liver enzymes, would follow closely. Hold statin at this time. Hematology 1. Leukocytosis; Continues to have leukocytosis, likely secondary to his treatment for CLL. There could be a contribution of immediate response to his pneumonia. Continue to follow closely. If the patient starts to develop any anemia, thrombocytopenia would reassess the need for continuation of the current medication. - Continue to hold TKI at this time. 2. Anemia; hemoglobin dropped from 11.1 to 9.0. Patient is on IV heparin without any active signs of bleeding. Also TKI on hold. Will continue to monitor H&H if continues to drop down will stop H&H and will need to resume the TKI. - Repeat CBC in am. Metabolic- Hyponatremia; Improving. Serum Osm 281 with normal Urine Osm. Urine lytes normal. Continue to monitor. Hypokalemia; Could be secondary to diarrhea. Uric acid(normal) and Phos(5.3) which were checked to r/o tumor lysis syndrome. - Continue to monitor K and replete accordingly. EUGENE- improved. Alimentary Heart healthy diet. Monitor LFTs, which are on an uptrend. Neurology Continue his home medications. Nephro EUGENE; With an acute increase in serum creatinine to 2.2 on admission with last serum creatinine check that was 2 days ago prior to admission was 1.0, likely a prerenal injury sec to dehydration. Improving with IV fluids. Urine osmolality , urine lites, urine protein/creatinine ratio were checked given elevated protein in urine, which were normal. - Continue gentle IV fluid hydration. - Repeat BEP in a.m. DVT prophylaxis - ALPS and Eliquis. Patient is full code. #1 Central line- none #2 Arterial line- none #3 Grubbs catheter- none #4 Rectal tube- none #5 NG tube- none #6 IV/peripheral line- yes #7 IV drips- Dc fluid. #8 Vent settings- none #9 pressors- none. Problem List: 1. Sepsis 2. New onset a-fib 3. EUGENE (acute kidney injury) Pain Ratin Tomorrow's Labs & Rationales: cbc bep lfts Plan DVT/Prophylaxis: pharmacological Malik Gaona 10/23/17 0858: Attending MD Review Statement Attending Sign Off Attending Cosign Statement: I have: examined this patient, reviewed [facility] EMR data, personally reviewd images, discussd w/resident/PA/[employer], discussed mgmt plan w/anil, discussed mgmt plan w/CM. Other Findings: 51-year-old male w/ PMH of CLL, HTN, HLD is here for evaluation of fatigue, cough, exetional dyspnea, diarrhea, fever and loss of appetite. Patient on chemotherapy as per Hematology/oncology. Labs and imaging, medical records noted. Patient admitted here for sepsis from pnuemonia and found to have new onset atrial fibrillation with EUGENE and hypokalemia with mild transaminiits with overall clinical improvement. Patient continue with iv antibiotics, f/u blood culture negative so far, IVF, Eliquis for A/c. Cardiology appreicated. Hold BP meds. Replace potassium >4. Achieve rate control with treatment of underlying cause. Hold chemotherapy and inform hem/onc. Patient may be transferred to telemetry.
[2017-10-23 08:00] VITALS: BP 120/82
--- NOTE | 2017-10-23 10:34 | PN- Cardiology ---
Subjective Subjective: * No complaints. * Atrial fibrillation with mildly increased heart rate. * Increased free T4 * Increasing hepatic transaminases * No evidence of pulmonary embolism Objective Vital Signs and I&Os Vital Signs Date Time Temp Pulse Resp B/P B/P Pulse O2 O2 Flow FiO2 Mean Ox Delivery Rate 10/23 0806 125 120/82 10/23 0800 99 Room Air Room Air 10/23 0800 98.9 110 28 120/82 100 Room Air Room Air 10/23 0400 97 Room Air 10/23 0000 97 Room Air 10/23 0000 98.0 88 20 100/60 97 Room Air 10/22 2000 100 Room Air 10/22 1800 100.4 10/22 1630 101.7 10/22 1600 101.7 102 28 132/80 100 Room Air Room Air 10/22 1312 131 130/90 10/22 1200 99 Room Air Room Air Intake & Output 10/23 1600 10/23 0800 10/23 0000 10/22 1600 10/22 0800 10/22 0000 Intake Total 708 1680 1340 1545 5050 Output Total 700 1050 690 200 Balance 708 980 281 052 4101 Intake, IV 508 7464 382 8840 5000 Intake, Oral 200 520 600 260 50 Number 2 3 1 Bowel Movements Output, Stool 300 500 400 Output, Urine 400 550 290 200 Patient 219 lb 212 lb Weight Weight Bed scale Bed scale Measurement Method Physical Exam: General: WD/overweight male in NAD; alert and oriented x 3 HEENT: NC/AT, PERRL, EOMI Neck: no JVD, no carotid bruit heart: irregularly irregular Lungs: clear bilaterally Abdomen: soft, NT, +ve bowel sounds Extremties: no edema Assessment/Plan Assessment/Plan * This patient has newly discovered atrial fibrillation with increased heart rate. This may be a minor contributor to his weakness and malaise. Would consider an endocrinology consult for hyperthyroidism. * Begin Eliquis 5mg BID for stoke prophylaxis unless invasive procedures are anticipated. If so, IV heparin may be employed. * Obtain an echocardiogram. * Continue high dose Metoprolol for rate control as you are doing. * Hold Atorvastatin while hepatic transaminases are rising. Continue telemetry? Yes
--- NOTE | 2017-10-23 14:01 | Transfer of Care Summary ---
Hospital Course Course Hospital Course: Mr Nichols is a 51 year old man with a past medical history of CLL s/p Fludarabine +Cyclophosphamide+Rituxan ( dx'ed 02/2014) was in remission until 08/21; was treated at for pancytopenia w/ BM+LN biopsy positive for del (11) and del (13 ), HTN, HLD came to the hospital for chief concern of generalized malaise, fever, chills, decreased appetite, weakness, diarrhea and cough who was found to be in Atrial fibrillation w/ RVR likely secondary to a response of pneumonia. At the time of admission-Temperature 98.5 ( Tmax 101.1), pulse rate 183, blood pressure 101/63, pulse ox 96% on room air. W BC 10.4, platelets 153, hemoglobin 9.1, hematocrit 27.5. Sodium 133, potassium 4.1, chloride 109, bicarbonate 15 (likely from diarrhea) AST 76 (10/21/2017-->271 (10/23/2017) ALT 91(10/21/2017-->279(10/23/2017) Alkaline phosphatase 207(10/21/2017--> 254 (10/23/2017). Problem list: #1 community-acquired pneumonia #2 leukocytosis #3 sepsis #4 atrial fibrillation with rapid ventricular response #5 history of CLL #6 anion gap metabolic acidosis #7 abnormal liver chemistries #8 acute kidney injury #9 hypokalemia #10 hypomagnesemia #11 hyponatremia Etiology in this case who presented with new onset atrial fibrillation, likely secondary to infectious process in his lungs-likely community-acquired pneumonia from Legionella antigen. Severely dehydrated likely secondary to diarrhea, that may have led to severe electorylet abnormalities including hypomagnesemia, hypokalemia, exacerbating his arrhythmia. The etiology for anion gap metabolic acidosis is unclear, but he may be losing a lot of potassium and bicarbonate secondary to diarrhea leading to acidosis, which in addition to renal injury is likely causing anion gap metabolic acidosis. Acute kidney injury, with an acute increase in serum creatinine to 2.2 with last serum creatinine check that was 2 days ago was 1.0, indicates likely a prerenal injury sec to dehydration. He is being treated with tyrosine kinase inhibitor at this time, Ibrutinib which is the drug of choice for refractory disease, who failed FCR tx. In regards to his infection, this likely is a community-acquired pneumonia secondary to his increased vulnerability to Legionella given his lowered cell-mediated immunity. Given his lab abnormalities of abnormal liver chemistries, hyponatremia, diarrhea or likely manifestations of Legionella infection. Plan: Respiratory - stable at this time. Infectious Community-acquired pneumonia; patient had a white blood cell count of 25.2 at the time of admission. He has leukocytosis without any sign of granulocytosis, but has higher lymphocytes, indicates an abnormal pattern of inflammatory response to an acute infection. Urine Legionella antigen positive, patient was started on ceftriaxone and azithromycin on admission. Patient was also septic at the time of admission(Fever and elevated WBC count with CAP) and received aggressive fluid hydration. - We will continue ceftriaxone and azithromycin - Continue gentle IV fluid hydration - Follow-up blood cultures - f/u sputum cultures - Supplemental oxygen and TRC nebs if needed Circulatory Hypotension; Blood pressure was on the lower side likely secondary to sepsis and atrial fibrillation. Improved with IV fluids. - Continue gentle IV fluid hydration. - We will resume metoprolol. - Continue to hold Cozaar. Atrial fibrillation; New Onset. Likely secondary to sepsis. Could also be from Severe dehydration likely secondary to diarrhea, that may have led to severe electorylet abnormalities including hypomagnesemia, hypokalemia, exacerbating his arrhythmia. Troponins and EKG 3 were negative. The duration of atrial fibrillation, is unclear, which can qualify for anticoagulation before any cardioversion is attempted.ChadVASC score of 1, but was satrted on IV heparin. Heart rate remains high in 120s, received IV metoprolol pushes(total of 15mg) last night. Will resume his home dose of PO metoprolol. Patient might need a cardizem drip if heart rate remains high. - Continue metoprolol 200mg daily. - IV heparin drip has been changed to - Awaiting cardiology recommendations. - Echo; pending Hyperlipidemia; Given his elevated liver enzymes, would follow closely. Hold statin at this time. Hematology 1. Leukocytosis; Continues to have leukocytosis, likely secondary to his treatment for CLL. There could be a contribution of immediate response to his pneumonia. Continue to follow closely. If the patient starts to develop any anemia, thrombocytopenia would reassess the need for continuation of the current medication. - Continue to hold TKI at this time. 2. Anemia; hemoglobin dropped from 11.1 to 9.0. Patient is on IV heparin without any active signs of bleeding. Also TKI on hold. Will continue to monitor H&H if continues to drop down will stop H&H and will need to resume the TKI. - Repeat CBC in am. Metabolic- Hyponatremia; Improving. Serum Osm 281 with normal Urine Osm. Urine lytes normal. Continue to monitor. Hypokalemia; Could be secondary to diarrhea. Uric acid(normal) and Phos(5.3) which were checked to r/o tumor lysis syndrome. - Continue to monitor K and replete accordingly. EUGENE- improved. Alimentary Heart healthy diet. Monitor LFTs, which are on an uptrend. Neurology Continue his home medications. Nephro EUGENE; With an acute increase in serum creatinine to 2.2 on admission with last serum creatinine check that was 2 days ago prior to admission was 1.0, likely a prerenal injury sec to dehydration. Improving with IV fluids. Urine osmolality , urine lites, urine protein/creatinine ratio were checked given elevated protein in urine, which were normal. - Continue gentle IV fluid hydration. - Repeat BEP in a.m. DVT prophylaxis - ALPS and Eliquis. Patient is full code. #1 Central line- none #2 Arterial line- none #3 Grubbs catheter- none #4 Rectal tube- none #5 NG tube- none #6 IV/peripheral line- yes #7 IV drips- Dc fluid. #8 Vent settings- none #9 pressors- none.
[2017-10-23 16:00] VITALS: BP 118/80
[2017-10-24] VITALS: BP 116/70
[2017-10-24 04:53] LABS: ABSOLUTE BASOPHIL COUNT 0 /CUMM (0.0-0.2); ABSOLUTE EOSINOPHIL COUNT 0 /CUMM (0.0-0.7); ABSOLUTE GRANULOCYTE CT 4.4 /CUMM (1.4-6.5); ABSOLUTE LYMPH COUNT 3.9 /CUMM (1.2-3.4); ABSOLUTE MONOCYTE COUNT 0.4 /CUMM (0.10-0.60); BASOPHIL % 0.2 % (0.0-2.0); EOSINOPHIL % 0.1 % (0-5); HEMATOCRIT 27.1 % (42-52); MEAN CORPUSCULAR HGB 28.8 PG (27.0-31.0); MEAN CORPUSCULAR VOLUME 87.3 FL (80.0-94.0); MEAN PLATELET VOLUME 8.4 FL (7.4-10.4); PLATELET COUNT 182 /CUMM (130-400); RBC DISTRIBUTION WIDTH 19.1 % (11.5-14.5); WHITE BLOOD CELL COUNT 8.8 /CUMM (4.8-10.8)
--- NOTE | 2017-10-24 07:24 | ECHOCARDIOGRAM REPORT ---
LAURITA AMIN Age: 51 : 1965 Gender: M Exam Date: 10/23/2017 08:32 Exam Location: [facility] Ht (in): 70 Wt (lb): 215 BSA: 2.22 BP: 100 / 60 Ordering Physician: Omar Rubi MD Referring Physician: Tello Murillo MD, PhD Technologist: [facility] Room Number: 107 Indications: AFIB/FLUTTER Rhythm: Atrial fibrillation Technical Quality: good FINDINGS Left Ventricle Normal left ventricular size, wall thickness and systolic function with no obvious regional wall motion abnormalities. The ejection fraction is visually estimated at 60%. Right Ventricle The right ventricle is normal in size and function. Right Atrium The right atrium is normal in size. Left Atrium The left atrium is mildly enlarged. The interatrial septum is intact. Mitral Valve The mitral valve is normal in structure and function. There is mild mitral regurgitation. Aortic Valve Structurally normal aortic valve without significant sclerosis or stenosis. There is no aortic regurgitation. Tricuspid Valve The tricuspid valve is normal in structure and function. There is mild tricuspid regurgitation. Pulmonary artery systolic pressure is mildly elevated to 42mmHg. Pulmonic Valve Structurally normal pulmonic valve. There is trace pulmonic regurgitation. Pericardium Normal pericardium without effusion. No pleural effusion. Great Vessels Normal aortic root dimension. The aortic arch and great vessels are well seen and are normal. CONCLUSIONS 1. Normal EF of 60%. 2. Mild left atrial enlargement. 3. Mild mitral regurgitation. 4. Mild tricuspid regurgitation. 5. Trace pulmonic regurgitation. 6. Mild pulmonary hypertension. Tlelo Murillo M.D. (Electronically Signed) Final Date: 24 October 2017 07:23 MEASUREMENTS (Male / Female) Normal Values 2D ECHO LV Diastolic Diameter PLAX 5.1 cm 4.2 - 5.9 / 3.9 - 5.3 cm LV Systolic Diameter PLAX 3.5 cm 2.1 - 4.0 cm LV Fractional Shortening PLAX 31.4 % 25 - 46 % LV Ejection Fraction 2D Teich 58.9 % IVS Diastolic Thickness 0.9 cm LVPW Diastolic Thickness 1.2 cm LV Relative Wall Thickness 0.4 LVOT Diameter 1.7 cm Aortic Root Diameter 3.8 cm LA Systolic Diameter LX 4.1 cm 3.0 - 4.0 / 2.7 - 3.8 cm LA Volume 84.0 cm 18 - 58 / 22 - 52 cm DOPPLER AV Peak Velocity 123.0 cm/s AV Peak Gradient 6.1 mmHg AV Mean Velocity 90.8 cm/s AV Mean Gradient 4.0 mmHg AV Velocity Time Integral 18.1 cm LVOT Peak Velocity 128.0 cm/s LVOT Peak Gradient 6.6 mmHg LVOT Mean Velocity 80.8 cm/s LVOT Mean Gradient 3.0 mmHg LVOT Velocity Time Integral 21.0 cm LVOT Stroke Volume 47.7 cm AV Area Cont Eq vti 2.6 cm AV Area Cont Eq pk 2.4 cm MV Peak Velocity 134.0 cm/s MV Peak Gradient 7.2 mmHg MV Mean Velocity 73.5 cm/s MV Mean Gradient 3.0 mmHg Mitral E Point Velocity 117.0 cm/s Mitral A Point Velocity 63.7 cm/s Mitral E to A Ratio 1.8 MV Deceleration Time 222.0 ms TR Peak Velocity 304.0 cm/s TR Peak Gradient 37.0 mmHg Right Atrial Pressure 5.0 mmHg Pulmonary Artery Systolic Pressu 42.0 mmHg Right Ventricular Systolic Press 42.0 mmHg PV Peak Velocity 109.0 cm/s PV Peak Gradient 4.8 mmHg PV Mean Velocity 81.4 cm/s PV Mean Gradient 3.0 mmHg PV Velocity Time Integral 15.9 cm LV E' Lateral Velocity 17.5 cm/s Mitral E to LV E' Lateral Ratio 6.7 LV E' Septal Velocity 18.9 cm/s Mitral E to LV E' Septal Ratio 6.2
--- NOTE | 2017-10-24 07:29 | PN- Resident CRCU ---
Yesenia AMAYA,[facility] 10/24/17 0728: Subjective HPI/CRCU Issues: #1 community-acquired pneumonia #2 leukocytosis - resolved but bendemia #3 sepsis - resolved #4 atrial fibrillation with rapid ventricular response #5 history of CLL #6 anion gap metabolic acidosis - resolved #7 abnormal liver chemistries #8 acute kidney injury - resolved #9 hypokalemia #10 hypomagnesemia #11 hyponatremia - resolved 24 Hour Events: Patient sitting comfortably in bed, eating his breakfast. States he was not able to sleep well last night because of Vitals every 2 hours but otherwise feeling better. Denies any active complaints. Objective Vital Signs & I&O Last 8 Hrs of Vitals and I&O: Intake & Output 10/25 0800 Intake Total 0 Output Total Balance 0 Intake, Oral 0 Number 0 Bowel Movements Exam General Appearance: well developed/nourished, no apparent distress, alert, awake , comfortable Head: atraumatic, normal appearance Respiratory: normal breath sounds, chest non-tender, lungs clear Cardiovascular: irregularly irregular Gastrointestinal: normal bowel sounds, soft, non-tender Extremities: normal inspection, no edema Cranial Nerves: normal hearing, normal speech, PERRL Current Medications: Current Medications Sig/Sai Start time Last Medication Dose Route Stop Time Status Admin Alprazolam 0.5 MG ONCE PRN 10/23 1615 DC 10/23 PO 10/23 1900 1615 Alprazolam 0.5 MG QPM PRN 10/21 2130 AC PO 10/28 212 Apixaban 5 MG BID 10/22 2145 AC 10/23 PO 2131 Azithromycin 500 MG 1800 10/22 1800 AC 10/23 Sodium Chloride 250 ML IV 1802 Ceftriaxone Sodium 1,000 MG 2200 10/21 2200 AC 10/23 IV 2131 Escitalopram Oxalate 5 MG DAILY 10/22 0900 AC 10/23 PO 0806 Metoprolol Succinate 200 MG DAILY 10/22 1149 AC 10/23 PO 0806 Phosphate 250 MG PC AND AT BEDTIME 10/24 0900 AC PO Potassium Chloride 40 MEQ ONCE ONE 10/24 0815 DC PO 10/24 0816 Potassium Chloride 40 MEQ Q13H 10/22 1445 DC 10/23 Sodium Chloride 1,000 ML IV 0807 Impression/Plan Impression/Problem List Impression: Mr Nichols is a 51 year old man with a past medical history of CLL s/p Fludarabine +Cyclophosphamide+Rituxan ( dx'ed 02/2014) was in remission until 08/21; was treated at for pancytopenia w/ BM+LN biopsy positive for del (11) and del (13 ), HTN, HLD came to the hospital for chief concern of generalized malaise, fever, chills, decreased appetite, weakness, diarrhea and cough who was found to be in Atrial fibrillation w/ RVR likely secondary to a response of pneumonia. Problem list: #1 community-acquired pneumonia #2 leukocytosis #3 sepsis #4 atrial fibrillation with rapid ventricular response #5 history of CLL #6 anion gap metabolic acidosis #7 abnormal liver chemistries #8 acute kidney injury #9 hypokalemia #10 hypomagnesemia #11 hyponatremia The etiology for anion gap metabolic acidosis is unclear, but he may be losing a lot of potassium and bicarbonate secondary to diarrhea leading to acidosis, which in addition to renal injury is likely causing anion gap metabolic acidosis. Given his lab abnormalities of abnormal liver chemistries, hyponatremia, diarrhea or likely manifestations of Legionella infection. Plan: Respiratory - stable at this time. Infectious Community-acquired pneumonia; patient had a white blood cell count of 25.2 at the time of admission. He has leukocytosis without any sign of granulocytosis, but has higher lymphocytes, indicates an abnormal pattern of inflammatory response to an acute infection. Flu test negative. Urine Legionella antigen positive, patient was started on ceftriaxone and azithromycin on admission. Patient was also septic at the time of admission(Fever and elevated WBC count with CAP) and received aggressive fluid hydration. - We discontinue ceftriaxone and change azithromycin to PO. - Monitor WBC count (Leukocytosis resolved but continues to have bandemia) - Follow-up blood cultures - remains negative - f/u sputum cultures - - Supplemental oxygen and TRC nebs if needed Circulatory Hypotension; Blood pressure was on the lower side likely secondary to sepsis and atrial fibrillation. Improved with IV fluids. - Continue metoprolol. - Continue to hold Cozaar. Atrial fibrillation; New Onset. Likely secondary to sepsis. Could also be from Severe dehydration likely secondary to diarrhea, that may have led to severe electorylet abnormalities including hypomagnesemia, hypokalemia, exacerbating his arrhythmia. Troponins and EKG 3 were negative. Thyroid function normal. The duration of atrial fibrillation, is unclear, which can qualify for anticoagulation before any cardioversion is attempted.ChadVASC score of 1, but was satrted on IV heparin now switched to Eliquis. Patient's d-dimer was 2650 and a follow-up CTA was done to rule out PE as a cause of his new onset atrial fibrillation. Remains tachycardic to 130s. - Continue metoprolol 200mg daily. - Continue Eliquis 5mg BID . - Appreciate cardiology recommendations. - Echo; shows normal ejection fraction with no regional wall motion abnormalities. Hyperlipidemia; - Given his elevated liver enzymes, would follow closely. - Continue to hold statin at this time. Hematology 1. Leukocytosis; Continues to have leukocytosis, likely secondary to his treatment for CLL. There could be a contribution of immediate response to his pneumonia. Continue to follow closely. If the patient starts to develop any anemia, thrombocytopenia would reassess the need for continuation of the current medication. - Continue to hold TKI at this time. 2. Anemia; hemoglobin dropped from 11.1 to 9.0 initially, remains stable afterwards. Patient on anticoagulation without any active signs of bleeding. Also TKI on hold. Will continue to monitor H&H if continues to drop down will stop Eliquis and will need to resume the TKI. - Repeat CBC in am. Metabolic- Hyponatremia; resolved. Serum Osm 281 with normal Urine Osm. Urine lytes normal. -Continue to monitor. Hypokalemia; Could be secondary to diarrhea. Uric acid(normal) and Phos(5.3) which were checked to r/o tumor lysis syndrome. - Continue to monitor K and replete accordingly. AGMA; Resolved. Alimentary Heart healthy diet. Neurology Continue his home medications. Nephro EUGENE; Resolved. With an acute increase in serum creatinine to 2.2 on admission with last serum creatinine check that was 2 days ago prior to admission was 1.0, likely a prerenal injury sec to dehydration. Improving with IV fluids. Urine osmolality , urine lites, urine protein/creatinine ratio were checked given elevated protein in urine, which were normal. - Cr currently with normal range. - Repeat BP in a.m. DVT prophylaxis - ALPS and IV heparin. Patient is full code. Problem List: 1. New onset a-fib 2. Sepsis 3. CLL (chronic lymphocytic leukemia) Pain Ratin Pain Location: NA Pain Goal: Remain pain free Pain Plan: NA Tomorrow's Labs & Rationales: CBC ICU Bundle Plan DVT/Prophylaxis: mechanical, pharmacological Malik Gaona 10/24/17 1110: Attending MD Review Statement Attending Sign Off Attending Cosign Statement: I have: examined this patient, reviewed aval EMR data, personally reviewd images, discussd w/resident/PA/[employer], discussed mgmt plan w/anil, discussed mgmt plan w/CM. Other Findings: Patient with overall clinical improvement. Patient denies any chest pain, His HR reamins uncontrolled with metoprolol 200mg daily. F/u cardiology. C/w eliquis. He is also on iv abx for pneumonia legionella needs azithromycin 500 x 5 days. Patient tolerating PO so can dc fluids. Chemotherapy on hold for now. Cont current care..
[2017-10-24 08:00] VITALS: BP 106/82
--- NOTE | 2017-10-24 08:04 | Cons- Hematology ---
General Information and HPI Consulting Request Date of Consult: 10/24/17 Requested By: Malik Gaona MD Reason for Consult: CLL, pneumonia, Afib Source of Information: patient, old records Exam Limitations: no limitations History of Present Illness: Mr. Nichols is a 51-year-old male with HTN, HLD, and CLL s/pc FCR and currently on ibrutinib who presented to the ER for fever, malaise, dyspnea with exertion, and coughing. He was feeling well after the clinic visit last week. He started developing worsening fatigue and dyspnea with exertion of the next few days. He subsequently had fever and chills. His appetite decreased. He had increasing weakness. He also had diarrhea which was non-bloody. He continues to have sinus congestion and postnasal drips which is persistent and he is planning to go to his ENT for evaluation. On presentation, he was afebrile with HR in the 180s. BP was around 101/63. Oxygen saturation was normal. He subsequently had fever of 101.1. Blood work demonstrated WBC of 25,200 with hemoglobin of 11.1 and platelet count of 161, 000. LFT had slight elevatation the the AST and ALT at 76 and 91, respectively. CTA of the chest was negative for PE. He did have multifocal pneumonia. Lymph nodes were stable in size. Urine Legionella was positive. He was given Ceftaz and azithromycin. He is currently on azithromycin and ceftriaxone. He is also noted to be in atrial fibrillation. Cardiology is setting patient. He is now on apixaban and metoprolol. His renal function was also decreased. He feels a little better now. His HR is still elevated. He denies any new pain. He has no fever or chills. He has no nausea or vomiting. Allergies/Medications Allergies: Coded Allergies: No Known Allergies (09/10/17) Home Med List: Allopurinol 300 MG TABLET 1 TAB PO DAILY URIC ACID (Reported) Alprazolam 0.5 MG TABLET 1 TAB PO QPM PRN ANXIETY (Reported) Atorvastatin Calcium 20 MG TABLET 1 TAB PO DAILY CHOLESTEROL (Reported) Azelastine HCl (Astepro) 205.5 MCG (0.15 %) SPRAY.PUMP 2 SPRAY NASB DAILY NASAL RUNNING (Reported) Cyanocobalamin (Vitamin B-12) (Unknown Strength) TABLET (Unknown Dose) PO DAILY SUPPLEMENT (Reported) Escitalopram Oxalate 5 MG TABLET 1 TAB PO PRN MENTAL HEALTH (Reported) Ibrutinib (Imbruvica) 140 MG CAPSULE 420 MG PO DAILY CLL (Reported) Losartan Potassium 50 MG TABLET 1 TAB PO DAILY HEART (Reported) Metoprolol Succinate 200 MG TAB.ER.24H 1 TAB PO DAILY HEART (Reported) Current Medications: Current Medications Sig/Sai Start time Last Medication Dose Route Stop Time Status Admin Alprazolam 0.5 MG ONCE PRN 10/23 1615 DC 10/23 PO 10/23 1900 1615 Alprazolam 0.5 MG QPM PRN 10/21 2130 AC PO 10/28 212 Apixaban 5 MG BID 10/22 2145 AC 10/23 PO 2131 Azithromycin 500 MG 1800 10/22 1800 AC 10/23 Sodium Chloride 250 ML IV 1802 Ceftriaxone Sodium 1,000 MG 2200 10/21 2200 AC 10/23 IV 2131 Escitalopram Oxalate 5 MG DAILY 10/22 0900 AC 10/23 PO 0806 Metoprolol Succinate 200 MG DAILY 10/22 1149 AC 10/23 PO 0806 Potassium Chloride 40 MEQ Q13H 10/22 1445 DC 10/23 Sodium Chloride 1,000 ML IV 0807 Review of Systems Review of Systems Constitutional: Reports: fever, weakness. Denies: chills. EENTM: Reports: nasal congestion. Cardiovascular: Reports: palpitations. Denies: chest pain. Respiratory: Reports: cough, short of breath. GI: Denies: abdominal pain. Genitourinary: Denies: dysuria. Neurological/Psychological: Reports: anxiety. Denies: confusion. Hematologic/Endocrine: Denies: bruising, bleeding. All Other Systems: Reviewed and Negative Past History Travel History Traveled to [place] past 21 day No Medical History Blood Transfusion Hx: Yes Neurological: NONE EENT: NONE Cardiovascular: hypertension, hyperlipidemia Respiratory: NONE Gastrointestinal: NONE Renal: NONE Musculoskeletal: NONE Psychiatric: NONE Endocrine: NONE Blood Disorders: pancytopenia Cancer(s): CLL Surgical History Surgical History: non-contributory Family History Relations & Conditions If Any: MOTHER (Arrythmias ( type not known )). Psychosocial History Where Do You Live? Home Smoking Status: Never Smoked ETOH Use: occasional use Illicit Drug Use: denies illicit drug use Functional Ability ADLs Independent: dressing, eating, toileting, bathing. Ambulation: independent Employment History Employment: Unemployed Profession/Employer: [employer] Exam & Diagnostic Data Vital Signs and I&O Vital Signs Date Time Temp Pulse Resp B/P B/P Pulse O2 O2 Flow FiO2 Mean Ox Delivery Rate 10/24 0000 97 Room Air 10/24 0000 98.4 112 22 116/70 97 Room Air 10/23 1600 97 Room Air 10/23 1600 98.0 124 18 118/80 97 Room Air 10/23 0806 125 120/82 10/23 0800 99 Room Air Room Air 10/23 0800 98.9 110 28 120/82 100 Room Air Room Air Intake & Output 10/24 0800 10/24 0000 10/23 1600 Intake Total 100 970 900 Output Total 600 Balance 100 970 300 Intake, IV 250 300 Intake, Oral 100 720 600 Number 2 200 Bowel Movements Output, Urine 600 Patient 99.79 kg Weight Weight Bed scale Measurement Method Physical Exam General Appearance: well developed/nourished, no apparent distress, alert, awake , comfortable Head: atraumatic, normal appearance Eyes: Bilateral: PERRL. Ears, Nose, Throat: normal pharynx, nasal congestion Respiratory: chest non-tender, no respiratory distress, quiet respiration Cardiovascular: tachycardia, irregularly irregular Gastrointestinal: normal bowel sounds, soft, non-tender, no organomegaly Extremities: normal inspection, no edema Neurologic/Psych: awake, alert, oriented x 3 Cranial Nerves: normal hearing, normal speech, PERRL Skin: intact, normal color, warm/dry Lymphatic: no anterior cervical mehul Last 48 Hours of Lab Results: Laboratory Tests 10/24 10/23 0420 0515 Chemistry Sodium (137 - 145 mmol/L) 137 133 L Potassium (3.5 - 5.1 mmol/L) 3.8 4.1 Chloride (98 - 107 mmol/L) 110 H 109 H Carbon Dioxide (22 - 30 mmol/L) 14 L 15 L Anion Gap (5 - 16) 13 9 BUN (9 - 20 mg/dL) 11 16 Creatinine (0.7 - 1.2 mg/dL) 0.8 1.1 Estimated GFR (>60 ml/min) > 60 > 60 BUN/Creatinine Ratio (7 - 25 %) 13.8 Glucose (65 - 99 mg/dL) 90 Calcium (8.4 - 10.2 mg/dL) 7.9 L Phosphorus (2.5 - 4.5 mg/dL) 2.2 L Magnesium (1.6 - 2.3 mg/dL) 1.8 2.0 Total Bilirubin (0.2 - 1.3 mg/dL) 0.6 0.5 Direct Bilirubin (< 0.4 mg/dL) 0.5 H AST (17 - 59 U/L) 102 H 271 H ALT (21 - 72 U/L) 150 H 229 H Alkaline Phosphatase (< 127 U/L) 221 H Total Protein (6.3 - 8.2 g/dL) 4.8 L Albumin (3.5 - 5.0 g/dL) 2.8 L 2.8 L TSH (0.270 - 4.200 uIU/mL) 2.230 Free T4 (0.64 - 1.79 ng/dL) 1.29 Total T3 (0.97 - 1.69 ng/mL) 0.65 L Hematology CBC w Diff MAN DIFF ORDERED MAN DIFF ORDERED WBC (4.8 - 10.8 /CUMM) 8.8 10.4 RBC (4.70 - 6.10 /CUMM) 3.10 L 3.11 L Hgb (14.0 - 18.0 G/DL) 8.9 L 9.1 L Hct (42 - 52 %) 27.1 L 27.5 L MCV (80.0 - 94.0 FL) 87.3 88.4 MCH (27.0 - 31.0 PG) 28.8 29.1 MCHC (33.0 - 37.0 G/DL) 33.0 33.0 RDW (11.5 - 14.5 %) 19.1 H 18.8 H Plt Count (130 - 400 /CUMM) 182 153 MPV (7.4 - 10.4 FL) 8.4 8.4 Gran % (42.2 - 75.2 %) 50.0 42.0 L Lymphocytes % (20.5 - 51.1 %) 44.6 50.5 Monocytes % (1.7 - 9.3 %) 5.1 7.3 Eosinophils % (0 - 5 %) 0.1 0 Basophils % (0.0 - 2.0 %) 0.2 0.2 Absolute Granulocytes (1.4 - 6.5 /CUMM) 4.4 4.4 Segmented Neutrophils (42.2 - 75.2 %) 28 L 31 L Band Neutrophils (0.0 - 5.0 %) 9 H 8 H Absolute Lymphocytes (1.2 - 3.4 /CUMM) 3.9 H 5.2 H Lymphocytes (20.5 - 51.1 %) 52 H 53 H Monocytes (1.7 - 9.3 %) 8 6 Absolute Monocytes (0.10 - 0.60 /CUMM) 0.4 0.8 H Absolute Eosinophils (0.0 - 0.7 /CUMM) 0 0 Absolute Basophils (0.0 - 0.2 /CUMM) 0 0 Metamyelocytes (0.0 - 1.0 %) 3 H 2 H Nucleated RBCs (0.0 - 0.0 /100WBC) 1 H Platelet Estimate (ADEQUATE) ADEQUATE VERIFIED BY SMEAR Poikilocytosis 1+ Basophilic Stippling RARE Anisocytosis 1+ 1+ Adrian Cells FEW Elliptocytes FEW 10/23 10/23 10/22 10/22 0350 0005 2115 1905 Blood Gas pH (7.35 - 7.45 PH) 7.38 pCO2 (35 - 45 TORR) 23 L pO2 (80 - 100 TORR) 86 HCO3 (21 - 28 MEQ/L) 13 L ABG O2 Sat (Measured) (>96.0 %) 95.0 L P-50 (Temp Corrected) N Carboxyhemoglobin (1.5 - 5.0 %) 0.2 L O2 Concentration % R/A Temperature (97.0 - 100.0 FARH) 98.8 Chemistry Sodium (137 - 145 mmol/L) 136 L Potassium (3.5 - 5.1 mmol/L) 4.0 Chloride (98 - 107 mmol/L) 109 H Carbon Dioxide (22 - 30 mmol/L) 16 L Anion Gap (5 - 16) 12 BUN (9 - 20 mg/dL) 19 Creatinine (0.7 - 1.2 mg/dL) 1.2 Estimated GFR (>60 ml/min) > 60 BUN/Creatinine Ratio (7 - 25 %) 15.8 Alkaline Phosphatase (< 127 U/L) 254 H Coagulation APTT (25 - 37 SEC) 82 H Hematology CBC w Diff Cancelled WBC Cancelled RBC Cancelled Hgb Cancelled Hct Cancelled MCV Cancelled MCH Cancelled MCHC Cancelled RDW Cancelled Plt Count Cancelled MPV Cancelled Gran % Cancelled Lymphocytes % Cancelled Monocytes % Cancelled Eosinophils % Cancelled Basophils % Cancelled Absolute Granulocytes Cancelled Segmented Neutrophils Cancelled Band Neutrophils Cancelled Absolute Lymphocytes Cancelled Lymphocytes Cancelled Monocytes Cancelled Absolute Monocytes Cancelled Eosinophils Cancelled Absolute Eosinophils Cancelled Absolute Basophils Cancelled Platelet Estimate Cancelled Poikilocytosis Cancelled Anisocytosis Cancelled Miscellaneous Phlebotomy Draw Site RIGHT RADIAL 10/22 10/22 10/22 1745 1300 1000 Chemistry Troponin I (<0.11 ng/ml) 0.03 Coagulation APTT (25 - 37 SEC) Cancelled 93 H D-Dimer High Sensitivty (0 - 243 ng/ml) 2650 H Imaging/Other Studies: Chest CTA 10/22/2017: Multifocal pneumonia. No evidence for pulmonary embolism. Stable mediastinal, bilateral hilar and bilateral axillary lymphadenopathy. Negative for pulmonary embolism. TTE 10/21/2017: 1. Normal EF of 60%. 2. Mild left atrial enlargement. 3. Mild mitral regurgitation. 4. Mild tricuspid regurgitation. 5. Trace pulmonic regurgitation. 6. Mild pulmonary hypertension. Assessment/Plan Assessment: Mr. Nichols is a 51-year-old male with HTN, HLD, and CLL s/pc FCR and currently on ibrutinib who presented to the ER for fever, malaise, dyspnea with exertion, and coughing. He was feeling well after the clinic visit last week. He progressively worsened over the week. On admission, he was noted to have multifocal pneumonia on CTA. He did not have PE. He was treated with Ceftaz and azithromycin and subsequently switched to ceftriaxone and azithromycin. Urine Legionella was positive. He has atrial fibrillation. Ibrutinib has been held. He does have some elevation in LFTs. He is afebrile now. Pneumonia seems to be clinically improving. He likely has immunosuppression from underlying CLL. He will be at increased risk for recurrent infection. He is improving with antibiotics. LFTs may be related to pneumonia, atrial fibrillation, and ibrutinib. Atrial fibrillation is likely multifactorial. Pneumonia may have placed him on enough stress to trigger atrial fibrillation. Ibrutinib does increase risk of atrial fibrillation. If his atrial fibrillation does not improve with control, he may need to be off ibrutinib indefinitely. He is being seen by cardiology. He is on apixaban and metoprolol XL for now. CLL seems to be improving with normalization of most of his counts. He is now off ibrutinib due to clinical issues. He may need to switch to a different agent if he does not tolerate ibrutinib. He will hold ibrutinib until follow up. Recommendations: Pneumonia likely Legionella: -antibiotics as per primary Atrial fibrillation: -hold ibrutinib -cardiology following -management as per cardiolgoy and primary recurrent CLL: -hold ibrutinib -follow up after discharge Problem List: 1. New onset a-fib 2. EUGENE (acute kidney injury) 3. Pneumonia 4. CLL (chronic lymphocytic leukemia) Other Findings/Comments: Please call [phone] with any questions or concerns. Consult Acknowledgment - Thank you for your consult request.
--- NOTE | 2017-10-24 09:28 | Transfer of Care Summary ---
Hospital Course Course Hospital Course: Mr Nichols is a 51 year old man with a past medical history of CLL s/p Fludarabine +Cyclophosphamide+Rituxan ( dx'ed 02/2014) was in remission until 08/21; was treated at for pancytopenia w/ BM+LN biopsy positive for del (11) and del (13 ), HTN, HLD came to the hospital for chief concern of generalized malaise, fever, chills, decreased appetite, weakness, diarrhea and cough who was found to be in Atrial fibrillation w/ RVR likely secondary to a response of pneumonia. Problem list: #1 community-acquired pneumonia #2 leukocytosis #3 sepsis #4 atrial fibrillation with rapid ventricular response #5 history of CLL #6 anion gap metabolic acidosis #7 abnormal liver chemistries #8 acute kidney injury #9 hypokalemia #10 hypomagnesemia #11 hyponatremia The etiology for anion gap metabolic acidosis was unclear, but he might have been losing a lot of potassium and bicarbonate secondary to diarrhea leading to acidosis, which in addition to renal injury was likely causing anion gap metabolic acidosis. Sepsis 2/2 Community-acquired pneumonia; Patient had a white blood cell count of 25.2 at the time of admission. He had leukocytosis without any sign of granulocytosis. Flu test negative. Urine Legionella antigen positive, patient was started on ceftriaxone and azithromycin on admission. Patient was also septic at the time of admission(Fever and elevated WBC count with CAP) and received aggressive fluid hydration. Initially started on IV ceftriaxone and azithromycin, ceftriaxone was discontinued on and azithromycin changed to PO(Legionella antigen positive). - Continue PO Azithromycin. - Monitor WBC count (Leukocytosis resolved but continues to have bandemia) - Follow-up blood cultures - remains negative - Supplemental oxygen and TRC nebs if needed Hypotension; Blood pressure was on the lower side likely secondary to sepsis and atrial fibrillation. Improved with IV fluids. - Continue metoprolol. - Continue to hold Cozaar. Atrial fibrillation; New Onset. Likely secondary to sepsis. Could also be from Severe dehydration likely secondary to diarrhea, that may have led to severe electorylet abnormalities including hypomagnesemia, hypokalemia, exacerbating his arrhythmia. Troponins and EKG 3 were negative. Thyroid function normal. The duration of atrial fibrillation, was unclear, which qualified for anticoagulation before any cardioversion attempt.ChadVASC score of 1, but was satrted on IV heparin later switched to Eliquis. Echo showed normal ejection fraction with no regional wall motion abnormalities. Patient's d-dimer was 2650 and a follow-up CTA was done to rule out PE as a cause of his new onset atrial fibrillation. Remains tachycardic to 130s. - Continue metoprolol 200mg daily. - Continue Eliquis 5mg BID . - F/U cardiology recommendations. Hyperlipidemia; Given his elevated liver enzymes, would follow closely. - Continue to hold statin at this time. Leukocytosis; Continued to have leukocytosis, likely secondary to his treatment for CLL. There might have been a contribution of immediate response to his pneumonia. If the patient starts to develop any anemia, thrombocytopenia would reassess the need for continuation of the current medication. - Continue to hold TKI at this time. Anemia; Hemoglobin dropped from 11.1 to 9.0 initially, remained stable afterwards. Patient on anticoagulation without any active signs of bleeding. Also TKI on hold. Will continue to monitor H&H if continues to drop down will stop Eliquis and will need to resume the TKI. - Repeat CBC in am. - F/u Haem/Onc recommendations. EUGENE; Resolved. With an acute increase in serum creatinine to 2.2 on admission with last serum creatinine check that was 2 days ago prior to admission was 1.0, likely a prerenal injury sec to dehydration. Improved with IV fluids. Urine osmolality, urine lites, urine protein/creatinine ratio were checked given elevated protein in urine, which were normal. - Cr currently with normal range. - Repeat BP in a.m. Hyponatremia; resolved. Serum Osm 281 with normal Urine Osm. Urine lytes normal. -Continue to monitor. Hypokalemia; Could be secondary to diarrhea. Uric acid(normal) and Phos(5.3) which were checked to r/o tumor lysis syndrome. - Continue to monitor K and replete accordingly. AGMA; Resolved. Depression/Anxiety; Continue his home medications. DVT prophylaxis - ALPS and IV heparin. Patient is full code. No central or arterial Lines No Grubbs catheter. Assessment/Plan: See above - Cr currently with normal range. - Repeat BP in a.m. DVT prophylaxis - ALPS and IV heparin. Patient is full code.
[2017-10-24 14:16] VITALS: BP 112/80
--- NOTE | 2017-10-24 20:28 | PN- Cardiology ---
Subjective Subjective: * No complaints. * Atrial fibrillation with mildly increased heart rate. * Mild left atrial enlargement on echo * Increasing hepatic transaminases * No evidence of pulmonary embolism Objective Vital Signs and I&Os Vital Signs Date Time Temp Pulse Resp B/P B/P Pulse O2 O2 Flow FiO2 Mean Ox Delivery Rate 10/24 1416 98.2 92 18 112/80 99 Room Air 10/24 0800 98.6 114 20 106/82 98 Room Air 10/24 0000 97 Room Air 10/24 0000 98.4 112 22 116/70 97 Room Air Intake & Output 10/24 1600 10/24 0800 10/24 0000 10/23 1600 10/23 0800 10/23 0000 Intake Total 210 100 970 662 976 5410 Output Total 600 700 Balance 210 100 970 300 708 980 Intake, IV 10 250 181 760 7504 Intake, Oral 200 100 720 600 200 520 Number 2 200 2 Bowel Movements Output, Stool 300 Output, Urine 600 400 Patient 220 lb 219 lb Weight Weight Bed scale Bed scale Measurement Method Physical Exam: General: WD/overweight male in NAD; alert and oriented x 3 HEENT: NC/AT, PERRL, EOMI Neck: no JVD, no carotid bruit heart: irregularly irregular Lungs: clear bilaterally Abdomen: soft, NT, +ve bowel sounds Extremties: no edema Assessment/Plan Assessment/Plan * This patient has newly discovered atrial fibrillation with increased heart rate. This may be a minor contributor to his weakness and malaise. Would consider an endocrinology consult for hyperthyroidism. * Begin Eliquis 5mg BID for stoke prophylaxis unless invasive procedures are anticipated. If so, IV heparin may be employed. * Continue high dose Metoprolol for rate control as you are doing. * Hold Atorvastatin while hepatic transaminases are rising. Continue telemetry? Yes
[2017-10-24 22:31] VITALS: BP 112/64
[2017-10-25 07:23] VITALS: BP 108/62
[2017-10-25 07:34] VITALS: BP 112/60
[2017-10-25 08:11] LABS: ABSOLUTE BASOPHIL COUNT 0.1 /CUMM (0.0-0.2); ABSOLUTE EOSINOPHIL COUNT 0.1 /CUMM (0.0-0.7); ABSOLUTE GRANULOCYTE CT 5.2 /CUMM (1.4-6.5); ABSOLUTE LYMPH COUNT 5.1 /CUMM (1.2-3.4); BASOPHIL % 0.9 % (0.0-2.0); EOSINOPHIL % 0.8 % (0-5); GRANULOCYTE % 44.9 % (42.2-75.2); HEMATOCRIT 29.9 % (42-52); MEAN CORPUSCULAR HGB 29.4 PG (27.0-31.0); MEAN CORPUSCULAR HGB CONC 33.3 G/DL (33.0-37.0); MEAN CORPUSCULAR VOLUME 88.2 FL (80.0-94.0); MEAN PLATELET VOLUME 8.6 FL (7.4-10.4); PLATELET COUNT 240 /CUMM (130-400); RBC DISTRIBUTION WIDTH 18.9 % (11.5-14.5); RED BLOOD CELL CT 3.39 /CUMM (4.70-6.10); WHITE BLOOD CELL COUNT 11.6 /CUMM (4.8-10.8)
--- NOTE | 2017-10-25 08:12 | PN- Hematology ---
Subjective Subjective: He feels generally well. He has improved significantly. He denies any new pain. He has no fever or chills. Review of Systems Constitutional: Reports: weakness. Denies: chills, fever. EENTM: Reports: nasal congestion. Cardiovascular: Denies: chest pain, palpitations. Respiratory: Denies: short of breath. Gastrointestinal: Denies: abdominal pain. Musculoskeletal: Denies: back pain. Neurological/Psychological: Reports: depressed. Denies: anxiety. Hematologic/Endocrine: Denies: bruising, bleeding. All Other Systems: Reviewed and Negative Objective Vital Signs and I&Os Vital Signs Date Time Temp Pulse Resp B/P B/P Pulse O2 O2 Flow FiO2 Mean Ox Delivery Rate 10/25 0734 97.5 95 20 112/60 98 Room Air 10/25 0723 97.4 88 20 108/62 98 BIPAP 10/24 2231 98.8 85 20 112/64 96 Room Air 10/24 1416 98.2 92 18 112/80 99 Room Air Intake & Output 10/25 1600 10/25 0800 10/25 0000 10/24 1600 10/24 0800 10/24 0000 Intake Total 0 120 210 100 970 Output Total Balance 0 120 210 100 970 Intake, IV 10 250 Intake, Oral 0 120 200 100 720 Number 0 2 Bowel Movements Patient 89.896 kg 99.79 kg Weight Weight Bed scale Measurement Method Physical Exam: General Appearance: well developed/nourished, no apparent distress, alert, awake , comfortable Head: normal appearance Eyes: Bilateral: PERRL. Ears, Nose, Throat: normal pharynx, nasal congestion Respiratory: chest non-tender, no respiratory distress, quiet respiration Cardiovascular: tachycardia, irregularly irregular Gastrointestinal: normal bowel sounds, soft, non-tender, no organomegaly Extremities: normal inspection, no edema Neurologic/Psych: awake, alert, oriented x 3 Cranial Nerves: normal hearing, normal speech, PERRL Skin: intact, normal color, warm/dry Current Medications: Current Medications Sig/Sai Start time Last Medication Dose Route Stop Time Status Admin Alprazolam 0.5 MG QPM PRN 10/21 2129 AC 10/24 PO 10/28 Apixaban 5 MG BID 10/22 2144 AC 10/24 PO 2004 Azithromycin 500 MG DAILY 10/24 1330 AC 10/24 PO 1702 Azithromycin 500 MG 1800 10/22 1800 DC 10/23 Sodium Chloride 250 ML IV 1802 Ceftriaxone Sodium 1,000 MG 2200 10/21 2200 DC 10/23 IV 2131 Escitalopram Oxalate 5 MG DAILY 10/22 0900 AC 10/24 PO 0936 Metoprolol Succinate 200 MG DAILY 10/22 1149 AC 10/24 PO 0937 Metoprolol Tartrate 5 MG ONCE ONE 10/25 0815 UNVr IV 10/25 0816 Phosphate 250 MG PC AND AT BEDTIME 10/24 0900 AC 10/24 PO 2004 Potassium Chloride 40 MEQ ONCE ONE 10/24 0815 DC 10/24 PO 10/24 0816 0900 Results Last 24 Hours of Lab Results: Laboratory Tests 10/25 10/25 0656 0600 Chemistry Sodium Pending Cancelled Potassium Pending Cancelled Chloride Pending Cancelled Carbon Dioxide Pending Cancelled Anion Gap Pending Cancelled BUN Pending Cancelled Creatinine Pending Cancelled BUN/Creatinine Ratio Pending Cancelled Phosphorus Pending Magnesium Pending Hematology CBC w Diff Pending Cancelled WBC Pending Cancelled RBC Pending Cancelled Hgb Pending Cancelled Hct Pending Cancelled MCV Pending Cancelled MCH Pending Cancelled MCHC Pending Cancelled RDW Pending Cancelled Plt Count Pending Cancelled MPV Pending Cancelled Assessment/Plan Hematology Assessment/Recommendations: Mr. Nichols is a 51-year-old male with HTN, HLD, and CLL s/pc FCR and currently on ibrutinib who presented to the ER for fever, malaise, dyspnea with exertion, and coughing. He was feeling well after the clinic visit last week. He progressively worsened over the week. On admission, he was noted to have multifocal pneumonia on CTA. He did not have PE. He was treated with Ceftaz and azithromycin and subsequently switched to ceftriaxone and azithromycin. Urine Legionella was positive. He has atrial fibrillation. Ibrutinib has been held. He does have some elevation in LFTs. LFTs are improving. He is afebrile now. Pneumonia seems to be imrpoving. He continues to be in atrial fibrillation. Cardiology is following. Atrial fibrillation is likely multifactorial with pneumonia, dehydration, and ibrutinib. Ibrutinib is know to potentially cause atrial fibrillation/increase risk of atrial fibrillation. Depending on control of his atrial fibrillation, he may need to go off ibrutinib indefinitely. Pneumonia likely Legionella: -antibiotics as per primary Atrial fibrillation: -continue hold ibrutinib -cardiology following -management as per cardiolgoy and primary recurrent CLL: -follow up after discharge -hold ibrutinib until follow up in clinic Please call [phone] with any questions or concerns. Problem List: 1. CLL (chronic lymphocytic leukemia) 2. New onset a-fib 3. Pneumonia
--- NOTE | 2017-10-25 09:19 | PN- Housestaff ---
Subjective Follow-up For: pneumonia atrial fibrillation Tele-Events Since Last Visit: atrial fibrillation HR 90s-130s Subjective: patient is feeling well, no complaints of chest pain palpitations or dyspnea does report anxiety and malaise Review of Systems Constitutional: Reports: see HPI. Objective Last 24 Hrs of Vital Signs/I&O Vital Signs Date Time Temp Pulse Resp B/P B/P Pulse O2 O2 Flow FiO2 Mean Ox Delivery Rate 10/25 1131 104 100/70 10/25 1000 96 10/25 0811 140 118/70 10/25 0734 97.5 95 20 112/60 98 Room Air 10/25 0723 97.4 88 20 108/62 98 BIPAP 10/24 2231 98.8 85 20 112/64 96 Room Air 10/24 1416 98.2 92 18 112/80 99 Room Air Intake & Output 10/25 1600 10/25 0800 10/25 0000 Intake Total 0 120 Output Total Balance 0 120 Intake, Oral 0 120 Number 0 Bowel Movements Patient 89.896 kg Weight Physical Exam General Appearance: Alert, Oriented X3, Cooperative, No Acute Distress Cardiovascular: Normal S1, Normal S2, No Murmurs, tachycardic irregularly irregular Lungs: Clear to Auscultation, Normal Air Movement Abdomen: Normal Bowel Sounds, Soft, No Tenderness, No Masses Extremities: No Clubbing, No Cyanosis, Normal Pulses, No Tenderness/Swelling, minimal LE edema Current Medications: Current Medications Sig/Sai Start time Last Medication Dose Route Stop Time Status Admin Alprazolam 0.5 MG QPM PRN 10/21 2130 AC 10/24 PO 10/28 2128 2240 Apixaban 5 MG BID 10/22 2145 AC 10/25 PO 0811 Azithromycin 500 MG DAILY 10/24 1330 AC 10/25 PO 1227 Diltiazem HCl 30 MG Q6 10/25 1200 AC 10/25 PO 1228 Escitalopram Oxalate 5 MG DAILY 10/22 0900 AC 10/25 PO 0811 Metoprolol Succinate 200 MG DAILY 10/22 1149 AC 10/25 PO 0811 Metoprolol Tartrate 5 MG ONCE ONE 10/25 0815 DC 10/25 IV 10/25 0816 0811 Phosphate 250 MG PC AND AT BEDTIME 10/24 0900 AC 10/25 PO 1227 Last 24 Hrs of Lab/Suhail Results Last 24 Hrs of Labs/Mics: Laboratory Tests 10/25/17 0656: Anion Gap 12, Estimated GFR > 60, BUN/Creatinine Ratio 11.3, Phosphorus 3.4, Magnesium 1.7, CBC w Diff MAN DIFF ORDERED, RBC 3.39 L, MCV 88.2, MCH 29.4, MCHC 33.3, RDW 18.9 H, MPV 8.6, Gran % 44.9, Lymphocytes % 44.4, Monocytes % 9.0, Eosinophils % 0.8, Basophils % 0.9, Absolute Granulocytes 5.2, Segmented Neutrophils 38 L, Band Neutrophils 8 H, Absolute Lymphocytes 5.1 H, Lymphocytes 44, Monocytes 9, Absolute Monocytes 1.0 H, Absolute Eosinophils 0.1 , Absolute Basophils 0.1, Metamyelocytes 1, Platelet Estimate ADEQUATE, Poikilocytosis 1+, Anisocytosis 1+, Ovalocytes 1+ 10/25/17 0600: Sodium Cancelled, Potassium Cancelled, Chloride Cancelled, Carbon Dioxide Cancelled, Anion Gap Cancelled, BUN Cancelled, Creatinine Cancelled, BUN/ Creatinine Ratio Cancelled, CBC w Diff Cancelled, WBC Cancelled, RBC Cancelled, Hgb Cancelled, Hct Cancelled, MCV Cancelled, MCH Cancelled, MCHC Cancelled, RDW Cancelled, Plt Count Cancelled, MPV Cancelled Assessment/Plan Assessment: 51 year old man with a past medical history of CLL in remission until 08/21; was treated at for pancytopenia w/ BM+LN biopsy positive for del (11) and del (13 ) now on second month of treatment with ibrutinib, HTN, and HLD came for evaluation of malaise, chills, anorexia, diarrhea and cough who was found to have pneumonia and atrial fibrillation with rapid ventricular response. Community-acquired pneumonia: Chest CT dense consolidation is scattered throughout the right upper and right lower lobes. Less significant interstitial prominence and airspace opacity is noted within the right middle and left lower lobes Legionella urinary antigen positive Leukocytosis 25.2 -> 15.4 -> 10.4 improved after admission, now 11.6 with 8% bands Started on ceftriaxone and azithromycin on admission Received aggressive fluid hydration for sepsis, lactic acid was normal Continue azithromycin 500mg PO. Blood cultures negative No supplemental oxygen requirement HTN: Continue metoprolol ARB held for EUGENE on admission Atrial fibrillation: new onset, asymptomatic likely secondary to PNA/sepsis Troponins negative x 3. Thyroid function normal. Continue eliquis 5mg po bid. CTA negative for PE Remains tachycardic to 130s, 5mg metoprolol IV given this morning Continue metoprolol 200mg daily. Add cardizem 30mg po q6h Follow up cardiology recommendations. Echo shows normal ejection fraction with no regional wall motion abnormalities. Hyperlipidemia: Statin on hold at this time for elevated LFTs, which are improving Leukocytosis: Likely secondary to bacterial pneumonia Ibrutinib on hold Hematology following Acute kidney injury: resolved Presented with serum creatinine 2.2 Renal function normalized with intravascular volume resuscitation Hyponatremia and hypokalemia: resolved. Recurrent CLL: Ibrutinib on hold Follow up with Dr. Aruna Reyna in clinic Heart healthy diet DVT ppx-on eliquis 5mg po bid Full code Problem List: 1. Sepsis 2. New onset a-fib 3. EUGENE (acute kidney injury) 4. Pneumonia Pain Ratin Pain Location: n/a Pain Goal: Pain 4 or less Pain Plan: prn Tomorrow's Labs & Rationales: cbc, bep, mg, phos, lft
--- NOTE | 2017-10-25 11:02 | PN- Att Addend ---
Attending Addendum Attending Brief Note Patient seen and examined. Plan of care discussed with the medical team and the patient. Available lab work and radiology test reports were reviewed. Patient sitting in chair this morning. He was noted to have increase heart rate of 140 this morning and was given 5 mg Lopressor IV. His is at the bedside. Patient denies any recent fever chills. He complains of for coughing but no chest pain. Exam: General: Patient awake alert oriented without any distress CVS: S1 plus S2 without any murmur or gallops Chest: Few scattered crepitation without any wheeze. There is no respiratory distress. Abdomen: Soft non-tender, bowel sound present, no guarding or rebound [employer]: Awake alert oriented without any focal neuro deficit and follows commands appropriately Extremities: Trace bilateral edema; no clubbing or cyanosis noted Assessment * A. fib with RVR * Legionella pneumonia * History of CLL * Hypophosphatemia now improved * Transaminitis gradually improving * Hypoalbuminemia Plan * Continue azithromycin * Add Cardizem 30 every 6 * Continue telemetry monitoring * Continue eliquis * Prepare for discharge home tomorrow Plan of care discussed with the . Current Medications Sig/Sai Start time Last Medication Dose Route Stop Time Status Admin Alprazolam 0.5 MG QPM PRN 10/21 2130 AC 10/24 PO 10/289 2240 Apixaban 5 MG BID 10/22 2145 AC 10/25 PO 0811 Azithromycin 500 MG DAILY 10/24 1330 AC 10/24 PO 1702 Azithromycin 500 MG 1800 10/22 1800 DC 10/23 Sodium Chloride 250 ML IV 1802 Ceftriaxone Sodium 1,000 MG 2200 10/21 2200 DC 10/23 IV 2131 Diltiazem HCl 30 MG Q6 10/25 1200 AC PO Escitalopram Oxalate 5 MG DAILY 10/22 0900 AC 10/25 PO 0811 Metoprolol Succinate 200 MG DAILY 10/22 1149 AC 10/25 PO 0811 Metoprolol Tartrate 5 MG ONCE ONE 10/25 0815 DC 10/25 IV 10/25 0816 0811 Phosphate 250 MG PC AND AT BEDTIME 10/24 0900 AC 10/25 PO 0812 Laboratory Tests 10/25/17 0656: Anion Gap 12, Estimated GFR > 60, BUN/Creatinine Ratio 11.3, Phosphorus 3.4, Magnesium 1.7, CBC w Diff MAN DIFF ORDERED, RBC 3.39 L, MCV 88.2, MCH 29.4, MCHC 33.3, RDW 18.9 H, MPV 8.6, Gran % 44.9, Lymphocytes % 44.4, Monocytes % 9.0, Eosinophils % 0.8, Basophils % 0.9, Absolute Granulocytes 5.2, Segmented Neutrophils 38 L, Band Neutrophils 8 H, Absolute Lymphocytes 5.1 H, Lymphocytes 44, Monocytes 9, Absolute Monocytes 1.0 H, Absolute Eosinophils 0.1 , Absolute Basophils 0.1, Metamyelocytes 1, Platelet Estimate ADEQUATE, Poikilocytosis 1+, Anisocytosis 1+, Ovalocytes 1+ 10/25/17 0600: Sodium Cancelled, Potassium Cancelled, Chloride Cancelled, Carbon Dioxide Cancelled, Anion Gap Cancelled, BUN Cancelled, Creatinine Cancelled, BUN/ Creatinine Ratio Cancelled, CBC w Diff Cancelled, WBC Cancelled, RBC Cancelled, Hgb Cancelled, Hct Cancelled, MCV Cancelled, MCH Cancelled, MCHC Cancelled, RDW Cancelled, Plt Count Cancelled, MPV Cancelled 10/24/17 0420: Anion Gap 13, Estimated GFR > 60, BUN/Creatinine Ratio 13.8, Phosphorus 2.3 L, Magnesium 1.8, Total Bilirubin 0.6, Direct Bilirubin 0.5 H, AST 102 H, ALT 150 H, Alkaline Phosphatase 221 H, Total Protein 4.8 L, Albumin 2.8 L, TSH 2.230 , Free T4 1.29, Total T3 0.65 L, CBC w Diff MAN DIFF ORDERED, RBC 3.10 L, MCV 87.3, MCH 28.8, MCHC 33.0, RDW 19.1 H, MPV 8.4, Gran % 50.0, Lymphocytes % 44.6 , Monocytes % 5.1, Eosinophils % 0.1, Basophils % 0.2, Absolute Granulocytes 4.4 , Segmented Neutrophils 28 L, Band Neutrophils 9 H, Absolute Lymphocytes 3.9 H, Lymphocytes 52 H, Monocytes 8, Absolute Monocytes 0.4, Absolute Eosinophils 0, Absolute Basophils 0, Metamyelocytes 3 H, Nucleated RBCs 1 H, Platelet Estimate ADEQUATE, Basophilic Stippling RARE, Anisocytosis 1+, Albert Cells FEW, Elliptocytes FEW 10/23/17 0515: Anion Gap 9, Estimated GFR > 60, Glucose 90, Calcium 7.9 L, Phosphorus 2.2 L, Magnesium 2.0, Total Bilirubin 0.5, AST 271 H, ALT 229 H, Albumin 2.8 L, CBC w Diff MAN DIFF ORDERED, RBC 3.11 L, MCV 88.4, MCH 29.1, MCHC 33.0, RDW 18.8 H , MPV 8.4, Gran % 42.0 L, Lymphocytes % 50.5, Monocytes % 7.3, Eosinophils % 0, Basophils % 0.2, Absolute Granulocytes 4.4, Segmented Neutrophils 31 L, Band Neutrophils 8 H, Absolute Lymphocytes 5.2 H, Lymphocytes 53 H, Monocytes 6, Absolute Monocytes 0.8 H, Absolute Eosinophils 0, Absolute Basophils 0, Metamyelocytes 2 H, Platelet Estimate VERIFIED BY SMEAR, Poikilocytosis 1+, Anisocytosis 1+ 10/23/17 0350: CBC w Diff Cancelled, WBC Cancelled, RBC Cancelled, Hgb Cancelled, Hct Cancelled , MCV Cancelled, MCH Cancelled, MCHC Cancelled, RDW Cancelled, Plt Count Cancelled, MPV Cancelled, Gran % Cancelled, Lymphocytes % Cancelled, Monocytes % Cancelled, Eosinophils % Cancelled, Basophils % Cancelled, Absolute Granulocytes Cancelled, Segmented Neutrophils Cancelled, Band Neutrophils Cancelled, Absolute Lymphocytes Cancelled, Lymphocytes Cancelled, Monocytes Cancelled, Absolute Monocytes Cancelled, Eosinophils Cancelled, Absolute Eosinophils Cancelled, Absolute Basophils Cancelled, Platelet Estimate Cancelled, Poikilocytosis Cancelled, Anisocytosis Cancelled 10/23/17 0005: Anion Gap 12, Estimated GFR > 60, BUN/Creatinine Ratio 15.8, Alkaline Phosphatase 254 H 10/22/17 2115: APTT 82 H 10/22/17 1905: pH 7.38, pCO2 23 L, pO2 86, HCO3 13 L, ABG O2 Sat (Measured) 95.0 L, P-50 ( Temp Corrected) N, Carboxyhemoglobin 0.2 L, O2 Concentration % R/A, Temperature 98.8, Phlebotomy Draw Site RIGHT RADIAL 10/22/17 1745: APTT Cancelled 10/22/17 1300: APTT 93 H, D-Dimer High Sensitivty 2650 H Vital Signs Date Time Temp Pulse Resp B/P B/P Pulse O2 O2 Flow FiO2 Mean Ox Delivery Rate 10/25 0811 140 118/70 10/25 0734 97.5 95 20 112/60 98 Room Air 10/25 0723 97.4 88 20 108/62 98 BIPAP 10/24 2231 98.8 85 20 112/64 96 Room Air 10/24 1416 98.2 92 18 112/80 99 Room Air Intake & Output 10/25 1600 10/25 0800 10/25 0000 Intake Total 0 120 Output Total Balance 0 120 Intake, Oral 0 120 Number 0 Bowel Movements Patient 198 lb Weight
[2017-10-25 11:31] VITALS: BP 100/70
[2017-10-25 14:11] VITALS: BP 102/60
--- NOTE | 2017-10-25 20:30 | PN- Cardiology ---
Subjective Subjective: * No complaints. * Atrial fibrillation Objective Vital Signs and I&Os Vital Signs Date Time Temp Pulse Resp B/P B/P Pulse O2 O2 Flow FiO2 Mean Ox Delivery Rate 10/25 1735 93 102/76 10/25 1411 97.5 89 20 102/60 97 Room Air 10/25 1131 104 100/70 10/25 1000 96 10/25 0811 140 118/70 10/25 0734 97.5 95 20 112/60 98 Room Air 10/25 0723 97.4 88 20 108/62 98 BIPAP 10/24 2231 98.8 85 20 112/64 96 Room Air Intake & Output 10/25 1600 10/25 0800 10/25 0000 10/24 1600 10/24 0800 10/24 0000 Intake Total 510 0 120 210 100 970 Output Total Balance 510 0 120 210 100 970 Intake, IV 30 10 250 Intake, Oral 480 0 120 200 100 720 Number 0 2 Bowel Movements Patient 198 lb 220 lb Weight Weight Bed scale Measurement Method Physical Exam: General: WD/overweight male in NAD; alert and oriented x 3 HEENT: NC/AT, PERRL, EOMI Neck: no JVD, no carotid bruit heart: irregularly irregular Lungs: clear bilaterally Abdomen: soft, NT, +ve bowel sounds Extremties: no edema Assessment/Plan Assessment/Plan * This patient has newly discovered atrial fibrillation with increased heart rate. This may be a minor contributor to his weakness and malaise. Would consider an endocrinology consult for hyperthyroidism. * Continue Eliquis 5mg BID for stoke prophylaxis. * Continue high dose Metoprolol for rate control as you are doing. A small dose of Cardizem is reasonable for better rate control but mild tachycardia in the setting of his anemia is not critical and the patient has a borderline blood pressure so we will be careful to not overly up titrate this medication. The patient is not expected to be in atrial fibrillation for an extended period of time since he will be ready for DC cardioversion in a couple weeks. * Atrial fibrillation is a common cardiac dysrhythmia that can be managed. If Ibrutinib is a medication that will be helpful to this patient he should take it. After three weeks of adequate anticoagulation we will attempt a DC cardioversion and then will likely begin an antiarrhythmic medication to maintain sinus rhythm. * Hold Atorvastatin while hepatic transaminases are rising. Continue telemetry? Yes
[2017-10-25 22:10] VITALS: BP 114/64
[2017-10-26 06:38] VITALS: BP 122/80
--- NOTE | 2017-10-26 07:04 | PN- Housestaff ---
Subjective Follow-up For: Pneumonia atrial fibrillation with RVR Complaints: no complaints Tele-Events Since Last Visit: afib HR 80s-120s Subjective: no complaints no chest pain or palpitations Review of Systems Constitutional: Reports: see HPI. Objective Last 24 Hrs of Vital Signs/I&O Vital Signs Date Time Temp Pulse Resp B/P B/P Pulse O2 O2 Flow FiO2 Mean Ox Delivery Rate 10/26 0904 104 110/80 10/26 0638 98.4 104 18 122/80 93 Room Air 10/26 0559 102 122/80 10/26 0024 108 112/80 10/26 0000 Room Air 10/25 2210 98.3 85 20 114/64 99 Room Air 10/25 1735 93 102/76 Intake & Output 10/26 1600 10/26 0800 10/26 0000 Intake Total 500 480 450 Output Total Balance 500 480 450 Intake, IV 20 Intake, Oral 480 480 450 Number 1 Bowel Movements Patient 94.347 kg Weight Physical Exam General Appearance: Alert, Oriented X3, Cooperative, No Acute Distress Neck: Supple, No JVD Cardiovascular: Regular Rate, Normal S1, Normal S2, No Murmurs Lungs: Clear to Auscultation, Normal Air Movement Abdomen: Normal Bowel Sounds, Soft, No Tenderness, No Masses Extremities: No Clubbing, No Cyanosis, No Tenderness/Swelling, minimal bilateral lower extremity edema Current Medications: Current Medications Sig/Sai Start time Last Medication Dose Route Stop Time Status Admin Alprazolam 0.5 MG QPM PRN 10/210 DCD 10/25 PO 10/289 2218 Apixaban 5 MG BID 10/22 2145 DCD 10/26 PO 0904 Azithromycin 500 MG DAILY 10/24 1330 DCD 10/26 PO 0904 Diltiazem HCl 120 MG DAILY 10/26 09 DCD 10/26 PO 0905 Diltiazem HCl 30 MG Q6 10/25 1200 DC 10/26 PO 0559 Escitalopram Oxalate 5 MG DAILY 10/22 09 DCD 10/26 PO 0904 Metoprolol Succinate 200 MG DAILY 10/22 1149 DCD 10/26 PO 0904 Patient Medication 1 ED ONE ONE 10/25 1700 DC 10/26 Teaching ED 10/25 1701 0650 Potassium Chloride 40 MEQ ONCE ONE 10/26 0845 DC 10/26 PO 10/26 0846 0904 Last 24 Hrs of Lab/Suhail Results Last 24 Hrs of Labs/Mics: Laboratory Tests 10/26/17 0700: Anion Gap 13, Estimated GFR > 60, BUN/Creatinine Ratio 8.6, Phosphorus 3.9, Magnesium 1.6, Total Bilirubin 0.6, Direct Bilirubin 0.4, AST 51, ALT 116 H, Alkaline Phosphatase 200 H, Total Protein 4.8 L, Albumin 2.8 L, CBC w Diff MAN DIFF ORDERED, RBC 3.29 L, MCV 87.4, MCH 29.6, MCHC 33.9, RDW 18.9 H, MPV 8.6, Segmented Neutrophils 39 L, Band Neutrophils 6 H, Lymphocytes 47, Monocytes 3, Eosinophils 2, Metamyelocytes 2 H, Myelocytes 1 H, Platelet Estimate VERIFIED BY SMEAR, Normocytic RBCs VERIFIED, Normochromic RBCs VERIFIED Assessment/Plan Assessment: 51 year old man with a past medical history of CLL in remission until 08/21; was treated at for pancytopenia w/ BM+LN biopsy positive for del (11) and del (13 ) now on second month of treatment with ibrutinib, HTN, and HLD came for evaluation of malaise, chills, anorexia, diarrhea and cough who was found to have pneumonia and atrial fibrillation with rapid ventricular response. Community-acquired pneumonia: Chest CT dense consolidation is scattered throughout the right upper and right lower lobes. Less significant interstitial prominence and airspace opacity is noted within the right middle and left lower lobes Legionella urinary antigen positive Leukocytosis 25.2 -> 15.4 -> 10.4 improved after admission, now 11.6 with 8% bands Started on ceftriaxone and azithromycin on admission Received aggressive fluid hydration for sepsis, lactic acid was normal Continue azithromycin 500mg PO for total of 1 week course Blood cultures negative No supplemental oxygen requirement HTN: Continue metoprolol ARB held for EUGENE on admission Atrial fibrillation: with RVR new onset, asymptomatic likely secondary to PNA/sepsis Troponins negative x 3. Thyroid function normal. Continue eliquis 5mg po bid. CTA negative for PE Continue metoprolol 200mg daily. Rate control improved with addition of diltiazem Change 30mg PO q6h to 120mg extended release Follow up cardiology recommendations. Echo shows normal ejection fraction with no regional wall motion abnormalities. Hyperlipidemia: Statin on hold at this time for elevated LFTs, which are improving Leukocytosis: Likely secondary to bacterial pneumonia Ibrutinib on hold Hematology following Acute kidney injury: resolved Presented with serum creatinine 2.2 Renal function normalized with intravascular volume resuscitation Hyponatremia and hypokalemia: resolved. Recurrent CLL: Ibrutinib on hold Follow up with Dr. Aruna Reyna in clinic Heart healthy diet DVT ppx-on eliquis 5mg po bid Full code Problem List: 1. New onset a-fib 2. Pneumonia 3. Sepsis 4. EUGENE (acute kidney injury) Pain Ratin Pain Location: n/a Pain Goal: Pain 4 or less Pain Plan: prn Tomorrow's Labs & Rationales: none, discharge
--- NOTE | 2017-10-26 07:22 | PN- Student ---
Subjective Subjective: No acute events overnight. Patient seen and examined this morning. Patient feel "ok". Denied chest headache, sore throat, chest pain, SOB, abdominal pain. Objective Objective: General: Alert, Oriented X3, Cooperative, No Acute Distress HEENT: NCAT, EOMI, moit oral mucosa, no exudates Neck: supple, nontender, no palpable masses Neuro: normal speech, intact CN II-XII CVS: Normal S1, Normal S2, No gallop or rub Lungs: Normal Air Movement Abdomen: present bowel sounds, soft, nontenderness, nondistended Extremities: no Clubbing, no Cyanosis, minimal LE edema Results Results: Laboratory Tests 10/26 0700 Chemistry Sodium (137 - 145 mmol/L) 140 Potassium (3.5 - 5.1 mmol/L) 3.4 L Chloride (98 - 107 mmol/L) 108 H Carbon Dioxide (22 - 30 mmol/L) 20 L Anion Gap (5 - 16) 13 BUN (9 - 20 mg/dL) 6 L Creatinine (0.7 - 1.2 mg/dL) 0.7 Estimated GFR (>60 ml/min) > 60 BUN/Creatinine Ratio (7 - 25 %) 8.6 Phosphorus (2.5 - 4.5 mg/dL) 3.9 Magnesium (1.6 - 2.3 mg/dL) 1.6 Total Bilirubin (0.2 - 1.3 mg/dL) 0.6 Direct Bilirubin (< 0.4 mg/dL) 0.4 AST (17 - 59 U/L) 51 ALT (21 - 72 U/L) 116 H Alkaline Phosphatase (< 127 U/L) 200 H Total Protein (6.3 - 8.2 g/dL) 4.8 L Albumin (3.5 - 5.0 g/dL) 2.8 L Hematology CBC w Diff MAN DIFF ORDERED WBC (4.8 - 10.8 /CUMM) 13.8 H RBC (4.70 - 6.10 /CUMM) 3.29 L Hgb (14.0 - 18.0 G/DL) 9.8 L Hct (42 - 52 %) 28.7 L MCV (80.0 - 94.0 FL) 87.4 MCH (27.0 - 31.0 PG) 29.6 MCHC (33.0 - 37.0 G/DL) 33.9 RDW (11.5 - 14.5 %) 18.9 H Plt Count (130 - 400 /CUMM) 231 MPV (7.4 - 10.4 FL) 8.6 Segmented Neutrophils (42.2 - 75.2 %) 39 L Band Neutrophils (0.0 - 5.0 %) 6 H Lymphocytes (20.5 - 51.1 %) 47 Monocytes (1.7 - 9.3 %) 3 Eosinophils (0 - 5.0 %) 2 Metamyelocytes (0.0 - 1.0 %) 2 H Myelocytes (0 - 0 %) 1 H Platelet Estimate (ADEQUATE) VERIFIED BY SMEAR Normocytic RBCs VERIFIED Normochromic RBCs VERIFIED Vital Signs Date Time Temp Pulse Resp B/P B/P Pulse O2 O2 Flow FiO2 Mean Ox Delivery Rate 10/26 0638 98.4 104 18 122/80 93 Room Air 10/26 0559 102 122/80 10/26 0024 108 112/80 10/26 0000 Room Air 10/25 2210 98.3 85 20 114/64 99 Room Air 10/25 1735 93 102/76 10/25 1411 97.5 89 20 102/60 97 Room Air 10/25 1131 104 100/70 10/25 1000 96 10/25 0811 140 118/70 10/25 0734 97.5 95 20 112/60 98 Room Air 10/25 0723 97.4 88 20 108/62 98 BIPAP Intake & Output 10/26 0800 10/26 0000 10/25 1600 Intake Total 480 450 510 Output Total Balance 480 450 510 Intake, IV 30 Intake, Oral 480 450 480 Patient 208 lb Weight Laboratory Tests 10/25/17 0656: Anion Gap 12, Estimated GFR > 60, BUN/Creatinine Ratio 11.3, Phosphorus 3.4, Magnesium 1.7, CBC w Diff MAN DIFF ORDERED, RBC 3.39 L, MCV 88.2, MCH 29.4, MCHC 33.3, RDW 18.9 H, MPV 8.6, Gran % 44.9, Lymphocytes % 44.4, Monocytes % 9.0, Eosinophils % 0.8, Basophils % 0.9, Absolute Granulocytes 5.2, Segmented Neutrophils 38 L, Band Neutrophils 8 H, Absolute Lymphocytes 5.1 H, Lymphocytes 44, Monocytes 9, Absolute Monocytes 1.0 H, Absolute Eosinophils 0.1 , Absolute Basophils 0.1, Metamyelocytes 1, Platelet Estimate ADEQUATE, Poikilocytosis 1+, Anisocytosis 1+, Ovalocytes 1+ 10/25/17 0600: Sodium Cancelled, Potassium Cancelled, Chloride Cancelled, Carbon Dioxide Cancelled, Anion Gap Cancelled, BUN Cancelled, Creatinine Cancelled, BUN/ Creatinine Ratio Cancelled, CBC w Diff Cancelled, WBC Cancelled, RBC Cancelled, Hgb Cancelled, Hct Cancelled, MCV Cancelled, MCH Cancelled, MCHC Cancelled, RDW Cancelled, Plt Count Cancelled, MPV Cancelled 10/24/17 0420: Anion Gap 13, Estimated GFR > 60, BUN/Creatinine Ratio 13.8, Phosphorus 2.3 L, Magnesium 1.8, Total Bilirubin 0.6, Direct Bilirubin 0.5 H, AST 102 H, ALT 150 H, Alkaline Phosphatase 221 H, Total Protein 4.8 L, Albumin 2.8 L, TSH 2.230 , Free T4 1.29, Total T3 0.65 L, CBC w Diff MAN DIFF ORDERED, RBC 3.10 L, MCV 87.3, MCH 28.8, MCHC 33.0, RDW 19.1 H, MPV 8.4, Gran % 50.0, Lymphocytes % 44.6 , Monocytes % 5.1, Eosinophils % 0.1, Basophils % 0.2, Absolute Granulocytes 4.4 , Segmented Neutrophils 28 L, Band Neutrophils 9 H, Absolute Lymphocytes 3.9 H, Lymphocytes 52 H, Monocytes 8, Absolute Monocytes 0.4, Absolute Eosinophils 0, Absolute Basophils 0, Metamyelocytes 3 H, Nucleated RBCs 1 H, Platelet Estimate ADEQUATE, Basophilic Stippling RARE, Anisocytosis 1+, [place] Cells FEW, Elliptocytes FEW Assessment/Plan Assessment: 51 y/o M with significant PMHx of CLL treatment with ibrutinib due to recurrency , HTN, and HLD. Patient came for evaluation of malaise, chills, anorexia, diarrhea and cough who was found to have Legionella pneumonia and atrial fibrillation with rapid ventricular response. Patient came out of ICU yesterday. Patient was tachy yesterday for which cardizem Q6 was added. [place] 24 hour HR is been between 85-108. Note-blood pressure is been between 112-122/80. Plan: Possible discharge in the next 24 hours Legionella pneumonia: -Legionella urinary antigen positive -Chest CT showed dense consolidation in the right upper and right lower lobes -Continue azithromycin 500mg PO. -Blood cultures negative Hx of HTN: -Continue metoprolol Atrial fibrillation: -new onset, asymptomatic, likely 2/2 to PNA -Troponins negative -Continue eliquis 5mg po bid. -CTA negative for PE -Continue metoprolol 200mg daily. -Cardizem 120 mg daily -Follow up cardiology recommendations: after 3 wks of anticoags, direct-current cardiversion will be attempt. -Echo shows normal ejection fraction with no regional wall motion abnormalities. Hx of Hyperlipidemia: -Statin on hold at this time for elevated LFTs Leukocytosis: -Likely secondary to bacterial pneumonia -Hematology following: cont. abx Acute kidney injury (resolved): -Presented with serum creatinine 2.2 Recurrent CLL: -Ibrutinib on hold -Follow up with Dr. Aruna Reyna DVT prophylaxis: -Eliquis 5mg po bid Full code
--- NOTE | 2017-10-26 07:53 | PN- Hematology ---
Subjective Subjective: He feels about the same. He denies any new symptoms. Heart rate is still elevated. He denies any palpitation. He has no fever or chills. He has no chest pain or shortness of breath. Review of Systems: Constitutional: Reports: weakness. Denies: chills, fever. EENTM: Reports: nasal congestion. Cardiovascular: Denies: chest pain, palpitations. Respiratory: Denies: short of breath. Gastrointestinal: Denies: abdominal pain. Musculoskeletal: Denies: back pain. Neurological/Psychological: Reports: depressed. Denies: anxiety. Hematologic/Endocrine: Denies: bruising, bleeding. All Other Systems: Reviewed and Negative Objective Vital Signs and I&Os Vital Signs Date Time Temp Pulse Resp B/P B/P Pulse O2 O2 Flow FiO2 Mean Ox Delivery Rate 10/26 0638 98.4 104 18 122/80 93 Room Air 10/26 0559 102 122/80 10/26 0024 108 112/80 10/26 0000 Room Air 10/25 2210 98.3 85 20 114/64 99 Room Air 10/25 1735 93 102/76 10/25 1411 97.5 89 20 102/60 97 Room Air 10/25 1131 104 100/70 10/25 1000 96 10/25 0811 140 118/70 Intake & Output 10/26 0800 10/26 0000 10/25 1600 10/25 0810/25 0000 10/24 1600 Intake Total 480 450 510 0 120 210 Output Total Balance 480 450 510 0 120 210 Intake, IV 30 10 Intake, Oral 480 450 480 0 120 200 Number 0 Bowel Movements Patient 94.347 kg 89.896 kg Weight Physical Exam: General Appearance: well developed/nourished, no apparent distress, alert, awake , comfortable Head: normal appearance Ears, Nose, Throat: normal pharynx, nasal congestion Respiratory: chest non-tender, no respiratory distress, quiet respiration Cardiovascular: tachycardia, irregularly irregular Gastrointestinal: normal bowel sounds, soft, non-tender, no organomegaly Extremities: normal inspection, 1+ BLE edema Neurologic/Psych: awake, alert, oriented x 3 Cranial Nerves: normal hearing, normal speech, PERRL Skin: intact, normal color, warm/dry Current Medications: Current Medications Sig/Sai Start time Last Medication Dose Route Stop Time Status Admin Alprazolam 0.5 MG QPM PRN 10/21 2130 AC 10/25 PO 10/28 2128 2218 Apixaban 5 MG BID 10/22 2145 AC 10/25 PO 2018 Azithromycin 500 MG DAILY 10/24 1330 AC 10/25 PO 1227 Diltiazem HCl 30 MG Q6 10/25 1200 AC 10/26 PO 0559 Escitalopram Oxalate 5 MG DAILY 10/22 0900 AC 10/25 PO 0811 Metoprolol Succinate 200 MG DAILY 10/22 1149 AC 10/25 PO 0811 Metoprolol Tartrate 5 MG ONCE ONE 10/25 0815 DC 10/25 IV 10/25 0816 0811 Patient Medication 1 ED ONE ONE 10/25 1700 DC 10/26 Teaching ED 10/25 1701 0650 Phosphate 250 MG PC AND AT BEDTIME 10/24 0900 DC 10/25 PO 1227 Results Last 24 Hours of Lab Results: Laboratory Tests 10/26 0700 Chemistry Sodium Pending Potassium Pending Chloride Pending Carbon Dioxide Pending Anion Gap Pending BUN Pending Creatinine Pending BUN/Creatinine Ratio Pending Phosphorus Pending Magnesium Pending Total Bilirubin Pending Direct Bilirubin Pending AST Pending ALT Pending Alkaline Phosphatase Pending Total Protein Pending Albumin Pending Hematology CBC w Diff Pending WBC Pending RBC Pending Hgb Pending Hct Pending MCV Pending MCH Pending MCHC Pending RDW Pending Plt Count Pending MPV Pending Assessment/Plan Hematology Assessment/Recommendations: Mr. Nichols is a 51-year-old male with HTN, HLD, and CLL s/pc FCR and currently on ibrutinib who presented to the ER for fever, malaise, dyspnea with exertion, and coughing. He was feeling well after the clinic visit last week. He progressively worsened over the week. On admission, he was noted to have multifocal pneumonia on CTA. He did not have PE. He was treated with Ceftaz and azithromycin and subsequently switched to ceftriaxone and azithromycin. Urine Legionella was positive. He has atrial fibrillation. Ibrutinib has been held. LTF seems to be improving. CMP pending today. Cardiology is following patient for atrial fibrillation. Patient is on low dose diltiazem and high dose metoprolol. Plan for DC cardioversion in 3 weeks by cardiology. Pneumonia seems to be improving. CLL seems to be stable. Ibrutinib is held and should continue to be held for now. Pneumonia likely Legionella: -antibiotics as per primary Atrial fibrillation: -continue hold ibrutinib -cardiology following -management as per cardiolgoy and primary recurrent CLL: -follow up after discharge -hold ibrutinib until follow up in clinic -will decide as an outpatient on continuing or changing therapy Please call [phone] with any questions or concerns. Problem List: 1. New onset a-fib 2. Pneumonia 3. CLL (chronic lymphocytic leukemia) 4. Pancytopenia
[2017-10-26 08:41] LABS: HEMATOCRIT 28.7 % (42-52); MEAN CORPUSCULAR HGB 29.6 PG (27.0-31.0); MEAN CORPUSCULAR HGB CONC 33.9 G/DL (33.0-37.0); MEAN CORPUSCULAR VOLUME 87.4 FL (80.0-94.0); MEAN PLATELET VOLUME 8.6 FL (7.4-10.4); PLATELET COUNT 231 /CUMM (130-400); RBC DISTRIBUTION WIDTH 18.9 % (11.5-14.5); RED BLOOD CELL CT 3.29 /CUMM (4.70-6.10); WHITE BLOOD CELL COUNT 13.8 /CUMM (4.8-10.8)
[2017-10-26 09:04] VITALS: BP 110/80
[2017-10-26] MEDS ORDERED: ELIQUIS5 M1 PO (10:06)
[2017-10-26] MEDS ORDERED: DILTIAZEM 24HR120 MG PO (10:06)
[2017-10-26] MEDS ORDERED: ZITHROMAX500 M2 PO (10:06)
--- NOTE | 2017-10-26 10:34 | PN- Att Addend ---
Attending Addendum Attending Brief Note Patient seen and examined. Plan of care discussed with the medical team and the patient. Available lab work and radiology test reports were reviewed. Patient sitting in chair this morning. He was noted to have increase heart rate of 120 this morning during activity. His is at the bedside. Patient denies any recent fever chills. He complains of coughing but no chest pain or difficulty breathing. Patient was to go home today. Exam: General: Patient awake alert oriented without any distress CVS: S1 plus S2 without any murmur or gallops Chest: Few scattered crepitation without any wheeze. There is no respiratory distress. 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 fib with RVR- improved with addition of Cardizem * Legionella pneumonia- improved currently on day 6 of Zithromax; his white cell count has been noted to gradually increase however patient does not have any fever and his symptoms and clinical status has improved. * History of CLL * Hypophosphatemia now improved * Transaminitis gradually improving * Hypoalbuminemia * mild hypokalemia Plan * Continue azithromycin total of 7 days * Continue Cardizem * Discharge home today * Patient followed Dr. Murillo for possible cardioversion in about 4 weeks * Continue eliquise * Replace oral potassium Plan of care discussed with the . Current Medications Sig/Sai Start time Last Medication Dose Route Stop Time Status Admin Alprazolam 0.5 MG QPM PRN 10/21 2130 AC 10/25 PO 10/28 2128 2218 Apixaban 5 MG BID 10/22 2145 AC 10/26 PO 0904 Azithromycin 500 MG DAILY 10/24 1330 AC 10/26 PO 0904 Diltiazem HCl 120 MG DAILY 10/26 0900 AC 10/26 PO 0905 Diltiazem HCl 30 MG Q6 10/25 1200 DC 10/26 PO 0559 Escitalopram Oxalate 5 MG DAILY 10/22 0900 AC 10/26 PO 0904 Metoprolol Succinate 200 MG DAILY 10/22 1149 AC 10/26 PO 0904 Patient Medication 1 ED ONE ONE 10/25 1700 DC 10/26 Teaching ED 10/25 1701 0650 Phosphate 250 MG PC AND AT BEDTIME 10/24 0900 DC 10/25 PO 1227 Potassium Chloride 40 MEQ ONCE ONE 10/26 0845 DC 10/26 PO 10/26 0846 0904 Laboratory Tests 10/26/17 0700: Anion Gap 13, Estimated GFR > 60, BUN/Creatinine Ratio 8.6, Phosphorus 3.9, Magnesium 1.6, Total Bilirubin 0.6, Direct Bilirubin 0.4, AST 51, ALT 116 H, Alkaline Phosphatase 200 H, Total Protein 4.8 L, Albumin 2.8 L, CBC w Diff MAN DIFF ORDERED, RBC 3.29 L, MCV 87.4, MCH 29.6, MCHC 33.9, RDW 18.9 H, MPV 8.6, Segmented Neutrophils 39 L, Band Neutrophils 6 H, Lymphocytes 47, Monocytes 3, Eosinophils 2, Metamyelocytes 2 H, Myelocytes 1 H, Platelet Estimate VERIFIED BY SMEAR, Normocytic RBCs VERIFIED, Normochromic RBCs VERIFIED 10/25/17 0656: Anion Gap 12, Estimated GFR > 60, BUN/Creatinine Ratio 11.3, Phosphorus 3.4, Magnesium 1.7, CBC w Diff MAN DIFF ORDERED, RBC 3.39 L, MCV 88.2, MCH 29.4, MCHC 33.3, RDW 18.9 H, MPV 8.6, Gran % 44.9, Lymphocytes % 44.4, Monocytes % 9.0, Eosinophils % 0.8, Basophils % 0.9, Absolute Granulocytes 5.2, Segmented Neutrophils 38 L, Band Neutrophils 8 H, Absolute Lymphocytes 5.1 H, Lymphocytes 44, Monocytes 9, Absolute Monocytes 1.0 H, Absolute Eosinophils 0.1 , Absolute Basophils 0.1, Metamyelocytes 1, Platelet Estimate ADEQUATE, Poikilocytosis 1+, Anisocytosis 1+, Ovalocytes 1+ 10/25/17 06: Sodium Cancelled, Potassium Cancelled, Chloride Cancelled, Carbon Dioxide Cancelled, Anion Gap Cancelled, BUN Cancelled, Creatinine Cancelled, BUN/ Creatinine Ratio Cancelled, CBC w Diff Cancelled, WBC Cancelled, RBC Cancelled, Hgb Cancelled, Hct Cancelled, MCV Cancelled, MCH Cancelled, MCHC Cancelled, RDW Cancelled, Plt Count Cancelled, MPV Cancelled 10/24/17 0420: Anion Gap 13, Estimated GFR > 60, BUN/Creatinine Ratio 13.8, Phosphorus 2.3 L, Magnesium 1.8, Total Bilirubin 0.6, Direct Bilirubin 0.5 H, AST 102 H, ALT 150 H, Alkaline Phosphatase 221 H, Total Protein 4.8 L, Albumin 2.8 L, TSH 2.230 , Free T4 1.29, Total T3 0.65 L, CBC w Diff MAN DIFF ORDERED, RBC 3.10 L, MCV 87.3, MCH 28.8, MCHC 33.0, RDW 19.1 H, MPV 8.4, Gran % 50.0, Lymphocytes % 44.6 , Monocytes % 5.1, Eosinophils % 0.1, Basophils % 0.2, Absolute Granulocytes 4.4 , Segmented Neutrophils 28 L, Band Neutrophils 9 H, Absolute Lymphocytes 3.9 H, Lymphocytes 52 H, Monocytes 8, Absolute Monocytes 0.4, Absolute Eosinophils 0, Absolute Basophils 0, Metamyelocytes 3 H, Nucleated RBCs 1 H, Platelet Estimate ADEQUATE, Basophilic Stippling RARE, Anisocytosis 1+, [place] Cells FEW, Elliptocytes FEW Vital Signs Date Time Temp Pulse Resp B/P B/P Pulse O2 O2 Flow FiO2 Mean Ox Delivery Rate 10/26 0904 104 110/80 10/26 0638 98.4 104 18 122/80 93 Room Air 10/26 0559 102 122/80 10/26 0024 108 112/80 10/26 0000 Room Air 10/25 2210 98.3 85 20 114/64 99 Room Air 10/25 1735 93 102/76 10/25 1411 97.5 89 20 102/60 97 Room Air 10/25 1131 104 100/70 Intake & Output 10/26 1600 10/26 0800 10/26 0000 Intake Total 480 450 Output Total Balance 480 450 Intake, Oral 480 450 Patient 208 lb Weight Total time spent in preparation for discharge plan, patient education, and CMR preparation was 35 minutes.
--- NOTE | 2017-10-26 11:14 | Patient Discharge Instructions ---
Discharge Instructions General Discharge Information You were seen/treated for: PNEUMONIA RAPID ATRIAL FIBRILLATION Special Instructions: FOLLOW UP WITH DR. HALEY IN ONE WEEK FOLLOW UP WITH DR. LAMONTE WAITE RETURN TO THE ER IF SYMPTOMS WORSE HEART RATE BECOMES HIGH OR BLOOD PRESSURE LOW. YOUR NEW MEDICATIONS ARE CARDIZEM AND ELIQUIS Acute Coronary Syndrome Inclusion Criteria At DC or during hospital stay patient has or had the following: ACS DIAGNOSIS No Discharge Core Measures Meds if any: Prescribed or Continued at Discharge Meds if any: NOT Prescribed or Continued at Discharge Congestive Heart Failure Inclusion Criteria At DC or during hospital stay patient has or had the following: CHF DIAGNOSIS No Discharge Core Measures Meds if any: Prescribed or Continued at Discharge Meds if any: NOT Prescribed or Continued at Discharge Cerebrovascular accident Inclusion Criteria At DC or during hospital stay patient has or had the following: CVA/TIA Diagnosis No Discharge Core Measures Meds if any: Prescribed or Continued at Discharge Meds if any: NOT Prescribed or Continued at Discharge Venous thromboembolism Inclusion Criteria VTE Diagnosis No VTE Type NONE VTE Confirmed by (Test) NONE Discharge Core Measures - Per Current guidelines, there needs to be overlap - treatment for the first 5 days of Warfarin therapy. - If discharged on Warfarin prior to 5 days of - overlap therapy, the patient will need to be - assessed for post discharge needs including - *Post discharge parental anticoagulation - *Warfarin and/or parental anticoagulation education - *Follow up date to check INR post discharge At least 5 days overlap therapy as Inpatient No Meds if any: Prescribed or Continued at Discharge Note: Overlap Therapy is Warfarin and Anticoagulant Meds if any: NOT Prescribed or Continued at Discharge
--- NOTE | 2017-10-26 13:11 | Discharge Summary ---
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 Aruna Reyna, hypertension, and hyperlipidemia presented with complaints of malaise, chills, anorexia, diarrhea and cough and subsequently admitted to critical care for sepsis secondary to community acquired pneumonia complicated by atrial fibrillation with rapid ventricular response. The patient met sepsis criteria with tachycardia, fever and leukocytosis with acute kidney injury secondary to a pneumonia. The patient was treated with intravascular volume resuscitation and early antiobiotics. Chest CT dense consolidation is scattered throughout the right upper and right lower lobes. Less significant interstitial prominence and airspace opacity is noted within the right middle and left lower lobes Legionella urinary antigen positive, lactic acid was normal Leukocytosis 25.2 -> 15.4 -> 10.4 with bandemia Started on ceftriaxone and azithromycin on admission Received aggressive fluid hydration for sepsis, Continue azithromycin 500mg PO for total of 1 week course Blood cultures negative No supplemental oxygen requirement Acute kidney injury: resolved Presented with serum creatinine 2.2 ARB held for EUGENE on admission Atrial fibrillation: with RVR new onset, asymptomatic likely secondary to PNA/sepsis Troponins negative x 3. Thyroid function normal. Continue eliquis 5mg po bid. CTA negative for PE Continue metoprolol 200mg daily. Rate control improved with addition of diltiazem Change 30mg PO q6h to 120mg extended release Follow up cardiology recommendations. Echo shows normal ejection fraction with no regional wall motion abnormalities. Statin held for transaminitis CLL Ibrutinib on hold Hematology following Allergies: Coded Allergies: No Known Allergies (09/10/17) Disposition Summary Disposition Principal Diagnosis: Sepsis secondary to legionella pneumonia Atrial fibrillation with rapid ventricular response Acute kidney injury Transaminitis Hypomagnesia Hypokalemia Anion gap metabolic acidosis Additional Diagnosis: CLL Hypertension Hyperlipidemia Discharge Disposition: home or self care Discharge Instructions General Discharge Information Code Status: Full Code Patient's Diet: Heart healthy diet Patient's Activity: As tolerated, no limitations Follow-Up Instructions/Appts: Please follow up with your primary care physician. Please follow up with Dr. Aruna Reyna for management of your CLL one week after discharge. Please follow up with Dr. Tello Murillo for atrial fibrillation and possible cardioversion, one week after discharge. Medications at Discharge Discharge Medications: Stop taking the following medications: Ibrutinib (Imbruvica) 140 MG CAPSULE ORAL DAILY Continue taking these medications: Metoprolol Succinate (Metoprolol Succinate) 200 MG TAB.ER.24H 1 Tablet ORAL DAILY Qty = 90 Comments: Last Taken:10/26/17 Time: 9:00 AM Losartan Potassium (Losartan Potassium) 50 MG TABLET 1 Tablet ORAL DAILY Qty = 90 Comments: DID NOT RECEIVE WHILE IN HOSPITAL Atorvastatin Calcium (Atorvastatin Calcium) 20 MG TABLET 1 Tablet ORAL DAILY Qty = 90 Comments: DID NOT RECEIVE WHILE IN HOSPITAL Allopurinol (Allopurinol) 300 MG TABLET 1 Tablet ORAL DAILY Qty = 30 Instructions: DID NOT RECEIVE WHILE IN HOSPITAL Escitalopram Oxalate (Escitalopram Oxalate) 5 MG TABLET 1 Tablet ORAL as needed for MENTAL HEALTH Qty = 30 Comments: Last Taken:10/26/17 Time: 9:00 AM Alprazolam (Alprazolam) 0.5 MG TABLET 1 Tablet ORAL Every night as needed for ANXIETY Qty = 30 Comments: Last Taken:10/25/17 Time: 10:15 PM Azelastine HCl (Astepro) 205.5 MCG (0.15 %) SPRAY.PUMP 2 [place] Both sides of nose DAILY Qty = 30 Comments: DID NOT RECEIVE WHILE IN HOSPITAL Cyanocobalamin (Vitamin B-12) (Unknown Strength) TABLET Unknown Dose ORAL DAILY Comments: DID NOT RECEIVE WHILE IN HOSPITAL Start taking the following new medications: Diltiazem HCl (Diltiazem 24HR ER) 120 MG CAP.ER.24H 1 Capsule ORAL DAILY Qty = 30 No Refills Comments: Last Taken:10/26/17 Time: 9:00 AM Apixaban (Eliquis) 5 MG TABLET 1 Tablet ORAL TWICE DAILY Qty = 60 No Refills Comments: Last Taken:10/26/17 Time: 9:00 AM Azithromycin (Zithromax) 500 MG TABLET 1 Tablet ORAL DAILY Qty = 1 No Refills Comments: Last Taken:10/26/17 Time: 9:00 AM Copies To: Riaz AMAYA,Mark Reyna MD,Virgil Murillo MD PHD,Tello Langston Attending Review Statement Documenting Attending: Raisa Sow MD Comments: Last Taken:10/26/17 Time: 9:00 AM Copies To: Riaz AMAYA,Mark Stacy; Maribell AMAYA,Virgil Murillo MD PHD,Tello Langston Attending Review Statement Documenting Attending: Raisa Sow MD
--- NOTE | 2017-10-26 20:37 | PN- Cardiology ---
Subjective Subjective: * No complaints * atrial fibrillation with increased heart rate Objective Vital Signs and I&Os Vital Signs Date Time Temp Pulse Resp B/P B/P Pulse O2 O2 Flow FiO2 Mean Ox Delivery Rate 10/26 0904 104 110/80 10/26 0638 98.4 104 18 122/80 93 Room Air 10/26 0559 102 122/80 10/26 0024 108 112/80 10/26 0000 Room Air 10/25 2210 98.3 85 20 114/64 99 Room Air Intake & Output 10/26 0810/26 0000 10/25 0810/25 0000 Intake Total 500 480 450 510 0 120 Output Total Balance 500 480 450 510 0 120 Intake, IV 20 30 Intake, Oral 480 480 450 480 0 120 Number 1 0 Bowel Movements Patient 208 lb 198 lb Weight Physical Exam: General: WD/overweight male in NAD; alert and oriented x 3 HEENT: NC/AT, PERRL, EOMI Neck: no JVD, no carotid bruit heart: irregularly irregular Lungs: clear bilaterally Abdomen: soft, NT, +ve bowel sounds Extremties: no edema Assessment/Plan Assessment/Plan * This patient has newly discovered atrial fibrillation with increased heart rate. This may have been a minor contributor to his weakness and malaise which is now resolved. * Continue Eliquis 5mg BID for stoke prophylaxis. * Continue high dose Metoprolol for rate control as you are doing. Okay to discharge on Cardizem CD 120mg daily along with Metoprolol. The patient is not expected to be in atrial fibrillation for an extended period of time since he will be ready for DC cardioversion in a couple weeks. * Atrial fibrillation is a common cardiac dysrhythmia that can be managed. If Ibrutinib is a medication that will be helpful to this patient he should take it. After three weeks of adequate anticoagulation we will attempt a DC cardioversion and then will likely begin an antiarrhythmic medication to maintain sinus rhythm. * Hold Atorvastatin while hepatic transaminases are rising. Continue telemetry? No
== END 2017-10-26 12:10 | DRG 871 ==
LOC: ERH 17:27 → CRI 20:24 → 1NO 20:24 → ERHI 20:24 → ENRESERV 21:26 → CRI 10-22 00:04 → 1NO 10-24 13:46 → ENPENDDIS 10-26 11:03 → ENTRNSPT 10-26 11:49 → 1NO 10-26 12:10 → EDTRNSPTSTS 10-26 12:11 → CMPTRNSPT 10-26 12:13
PROVIDERS: Internal Medicine; Internal Medicine Endocrinology, Diabetes & Metabolism; Physician Assistant; Student in an Organized Health Care Education/Training Program
DX: A41.89 Other specified sepsis (principal); A48.1 Legionnaires' disease; D61.818 Other pancytopenia; E87.2 Acidosis; N17.9 Acute kidney failure, unspecified; I48.91 Unspecified atrial fibrillation; E86.0 Dehydration; C91.12 Chronic lymphocytic leukemia of B-cell type in relapse; E87.1 Hypo-osmolality and hyponatremia; E83.42 Hypomagnesemia; I10 Essential (primary) hypertension; E87.6 Hypokalemia; R74.0 Nonspecific elevation of levels of transaminase and lactic acid dehydrogenase [LDH]; D64.9 Anemia, unspecified; E78.5 Hyperlipidemia, unspecified; F41.9 Anxiety disorder, unspecified; F32.9 Major depressive disorder, single episode, unspecified
CPT/HCPCS: 1NP; 84133; 84300; CCU; ERO; 36415; 36592; 71046; 81001; 82436; 82570; 87040; 87070; 87086; 87449; 87450; 87804; 87804-59; 93005; 93010; 93306; 96374; 96375; 99291; J0131; J0456; J0696; J0713; J1644; J1885; J7040; J7060; J7508

== ENCOUNTER 2018-01-01 11:48 | Inpatient (IN) | payer OTHER ==
[~2018-01-01] VITALS: Ht 177.8 cm; Wt 98.1 kg
[~2018-01-01 11:48] MED LIST changes: +ALLOPURINOL300 M1 PO; +ALPRAZOLAM0.5 M4 PO; +ASTEPRO205.5 MCG1 NASB; +DILTIAZEM 24HR120 MG PO; +ELIQUIS5 M1 PO; +ESCITALOPRAM OXA5 MG PO; +IMBRUVICA140 M1 PO; +VITAMIN B-121000 MC3 PO; +ZITHROMAX500 M2 PO
--- NOTE | 2018-01-01 12:21 | ED INFLUENZA/URI COMPLAINT ---
History of Present Illness General Chief Complaint: Upper Respiratory Sx/Fever Stated Complaint: FEVER COUGH XS WEEKS Source: patient Exam Limitations: no limitations Vital Signs & Intake/Output Vital Signs & Intake/Output Vital Signs Date Time Temp Pulse Resp B/P B/P Pulse O2 O2 Flow FiO2 Mean Ox Delivery Rate 01/01 1620 99.3 01/01 1616 99.3 128/88 01/01 1355 90 18 109/69 97 Room Air 01/01 1305 97 Room Air 01/01 1154 97.7 91 18 110/73 95 Room Air Room Air Allergies Coded Allergies: No Known Allergies (09/10/17) Reconcile Medications Apixaban (Eliquis) 5 MG TABLET 1 TAB PO BID AFIB Atorvastatin Calcium 20 MG TABLET 1 TAB PO DAILY CHOLESTEROL (Reported) Azelastine HCl (Astepro) 205.5 MCG (0.15 %) SPRAY.PUMP 2 SPRAY NASB DAILY NASAL RUNNING (Reported) Diltiazem HCl (Diltiazem 24HR ER) 120 MG CAP.ER.24H 1 CAP PO DAILY AFIB Escitalopram Oxalate 5 MG TABLET 1 TAB PO PRN MENTAL HEALTH (Reported) Losartan Potassium 50 MG TABLET 1 TAB PO DAILY HEART (Reported) Sotalol (Betapace) 80 MG TABLET 1 TAB PO BID AFIB (Reported) Triage Note: TRIAGE: 52 Y/O MALE PRESENTS W PMHX OF CLL - TREATED AT [facility] WITH IMBRUVICA. WAS TAKEN OFF TREATMENT 2 WEEKS AGO SECONDARY TO ADVERSE REACTIONS. NOW EXPERIENCING COUGH AND FEVER, PRODUCTIVE COUGH, POOR APPETITE. HAD RECENT BLOODWORK ON TUESDAY - "EVERYTHING IS GOOD - REDS, WHITES, PLATELETS, CT SCAN, ETC." Triage Nurses Notes Reviewed? yes Onset: Gradual Duration: changing over time, continues in ED, getting worse Timing: recent history Severity: moderate HPI: 52-year-old male presents to the emergency department with a history significant of CLL for which he sees Dr. Pantoja. He had been on medication Imbruvica 480 mg to treat the CLL and according to Dr. Pantoja the patient's CLL is under control at this time. Has been off of this medication x 3 wks. He is reporting general fatigue, rhinorrhea, postnasal drip, decreased appetite, and productive cough with clear phlegm for the past week. He denies any recent sick contacts or travel outside of the country. He is currently on Eliquis because of A. fib, had received cardioversion about 1 month ago and is due for an appointment with help desk assistant again tomorrow. Denies any blood in his phlegm. (La Rodriguez) Past History Travel History Traveled to [place] past 21 day No Medical History Any Pertinent Medical History? see below for history Neurological: NONE EENT: NONE Cardiovascular: hypertension, hyperlipidemia Respiratory: NONE Gastrointestinal: NONE Renal: NONE Musculoskeletal: NONE Psychiatric: NONE Endocrine: NONE Blood Disorders: pancytopenia Cancer(s): CLL History of MRSA: No History of VRE: No History of CDIFF: No Influenza Vaccine: 09/01/17 Surgical History Surgical History: non-contributory Psychosocial History Where do you live Home Who do you live with Spouse What is your primary language Romanian Tobacco Use: Never used ETOH Use: occasional use Illicit Drug Use: denies illicit drug use Family History Family History, If Any: MOTHER (Arrythmias ( type not known )). Hx Contributory? No (La Rodriguez) Review of Systems Review of Systems Constitutional: Reports: see HPI. EENTM: Reports: no symptoms. Respiratory: Reports: see HPI. Cardiovascular: Reports: no symptoms. GI: Reports: no symptoms. Genitourinary: Reports: no symptoms. Musculoskeletal: Reports: no symptoms. Skin: Reports: no symptoms. Neurological/Psychological: Reports: no symptoms. Hematologic/Endocrine: Reports: no symptoms. Immunologic/Allergic: Reports: no symptoms. All Other Systems: Reviewed and Negative (La Rodriguez) Physical Exam Physical Exam General Appearance: well developed/nourished, no apparent distress, alert, awake , comfortable Head: atraumatic, normal appearance Eyes: Bilateral: normal appearance, PERRL, EOMI. Ears, Nose, Throat: normal ENT inspection, moist mucous membrane, hearing grossly normal, pharynx normal, nasal drainage Neck: normal inspection, supple, full range of motion, no lymphadenopathy Respiratory: chest non-tender, crackles (right middle lobe) Cardiovascular: regular rate/rhythm, normal peripheral pulses Peripheral Pulses: 3+ radial (R), 3+ radial (L) Back: normal inspection, normal range of motion Extremities: normal inspection, normal range of motion Neurologic/Psych: no motor/sensory deficits, awake, alert, oriented x 3, normal gait, normal mood/affect Skin: intact, normal color, warm/dry Core Measures Sepsis Present: No Sepsis Focused Exam Completed? No (Nikhil BLACK,La) Progress Differential Diagnosis: influenza, neutropenia, pneumonia, pharyngitis, sinusitis Plan of Care: Orders Procedure Date/time Status Regular Diet 01/01 D Active Patient Data 01/01 1655 Active OXYGEN SETUP (GEN) 01/01 145 Active Saline Lock 01/01 145 Active Admit to inpatient 01/01 145 Active Vital Signs 01/01 145 Active Activity/Ambulation 01/01 1456 Active Code Status 01/01 1456 Active LOWER RESPIRATORY CULTURE 01/01 141 Active BLOOD CULTURE 01/01 141 Active COMPREHENSIVE METABOLIC PANEL 01/01 1222 Complete CBC WITHOUT DIFFERENTIAL 01/01 1222 Complete Intake & Output 01/01 1153 Active Laboratory Tests 01/01/18 1252: Anion Gap 12, Estimated GFR 34 L, BUN/Creatinine Ratio 16.2, Glucose 119 H, Calcium 8.9, Total Bilirubin 1.0, AST 325 H, ALT 204 H, Alkaline Phosphatase 272 H, Total Protein 5.3 L, Albumin 3.3 L, Globulin 2.0, Albumin/Globulin Ratio 1.7, CBC w Diff MAN DIFF ORDERED, RBC 4.63 L, MCV 85.0, MCH 28.0, MCHC 33.0, RDW 16.9 H, MPV 9.4, Gran % 82.8 H, Lymphocytes % 11.3 L, Monocytes % 5.0, Eosinophils % 0.6, Basophils % 0.3, Absolute Granulocytes 4.5, Segmented Neutrophils 77 H, Band Neutrophils 7 H, Absolute Lymphocytes 0.6 L, Lymphocytes 11 L, Monocytes 5, Absolute Monocytes 0.3, Absolute Eosinophils 0, Absolute Basophils 0, Poikilocytosis 1+, Anisocytosis 2+ Microbiology 01/01 145 BLOOD: Blood Culture - RECD 01/01 145 BLOOD: Blood Culture - RECD 01/01 141 LOWER RESP: Respiratory Culture - ORD 01/01 1413 LOWER RESP: Gram Stain - ORD 52-year-old male with history significant of CLL treated with Imbruvica medication by Dr. Pantoja, reportedly under control. Patient had presented to the ED reporting general fatigue, decreased appetite, cough productive of clear phlegm, rhinorrhea, and postnasal drip. Denies chest pain, shortness of breath. Recent history about 2 months ago of admission to the hospital d/t pneumonia caused by Legionella. -CXR with right middle and lower lobe pna -Acute kidney injury creat 2.1 -LFTs elevated however this is related to Imbruvica medication patient was taking for CLL, which was the indication for patient to be removed from the medication -Sputum culture, blood cultures, and abx ordered for CAP -Spoke with Dr. Carrizales and will request admission to hospital -Spoke with Dr. Chaudhry, will admit patient to medicine. Diagnostic Imaging: Viewed by Me: Radiology Read. Discussed w/RAD: Radiology Read. Radiology Impression: PATIENT: LAURITA AMIN PRESENT AGE: 52 PATIENT ACCOUNT NO: [id number] : 67 LOCATION: [facility] ORDERING PHYSICIAN: La BLACK SERVICE DATE: 01/01/18 EXAM TYPE: RAD - XRY- CHEST XRAY, TWO VIEWS EXAMINATION: XR CHEST CLINICAL INFORMATION: Cough and rhinorrhea COMPARISON: Chest radiograph 10/21/2017. Selected images CT chest TECHNIQUE: 2 views of the chest were obtained. FINDINGS: Since the prior examinations there has been development of extensive consolidation in the right lower lobe and also the right middle lobe. Trace right pleural effusion. Minor linear atelectasis is seen at the left lung base. The upper lungs are clear. The heart is at the upper limits of normal in size. Osseous structures are unremarkable. IMPRESSION: Extensive consolidation has developed in the right middle and lower lobe compatible with pneumonia. Trace right pleural effusion. DICTATED BY: Gentry Nur MD DATE/TIME DICTATED:01/01/181250 INDUSTRIAL RELATIONS MANAGER:SANG DATE/TIME TRANSCRIBED:01/01/181250 CONFIDENTIAL, DO NOT COPY WITHOUT APPROPRIATE AUTHORIZATION. <Electronically signed in Other Vendor System> SIGNED BY: Gentry Nur MD 01/01/18 1300 Initial ED EKG: none (La Rodriguez) Departure Departure Disposition: STILL A PATIENT Condition: Stable Clinical Impression Primary Impression: Pneumonia Qualifiers: Pneumonia type: due to unspecified organism Laterality: right Lung location: middle lobe of lung Qualified Code: J18.1 - Lobar pneumonia, unspecified organism Referrals: Mark Mello MD (PCP/Family) Departure Forms: Customer Survey General Discharge Information Admission Note Spoke With: Jimena Chaudhry MD Documentation of Exam: Documentation of any treatments & extenuating circumstances including Concerns Regarding Discharge (functional status, medication knowledge or non-compliance, living conditions, etc.) that warrant an admission rather than observation: [ community-acquired pneumonia, EUGENE, medical history significant for CLL, recent admission 2 months ago for legionella pna; IV fluids and IV abx, monitor kidney function, pulmonary/ID consult] (Nikhil BLACK,La) PA/LIVING COACH Co-Sign Statement Statement: ED Attending supervision documentation- x I saw and evaluated the patient. I have also reviewed all the pertinent lab results and diagnostic results. I agree with the findings and the plan of care as documented in the PA's/LIVING COACH's documentation. Fever, cough, PMHx CLL with RML and RLL pneumonia [] I have reviewed the ED Record and agree with the PA's/LIVING COACH's documentation. [] Additions or exceptions (if any) to the PAs/LIVING COACH's note and plan are summarized below: [] (Sofie AMAYA,Tyree)
--- NOTE | 2018-01-01 13:00 | RADIOLOGY REPORT ---
EXAMINATION: XR CHEST CLINICAL INFORMATION: Cough and rhinorrhea COMPARISON: Chest radiograph 10/21/2017. Selected images CT chest 12/22/2017 TECHNIQUE: 2 views of the chest were obtained. FINDINGS: Since the prior examinations there has been development of extensive consolidation in the right lower lobe and also the right middle lobe. Trace right pleural effusion. Minor linear atelectasis is seen at the left lung base. The upper lungs are clear. The heart is at the upper limits of normal in size. Osseous structures are unremarkable. IMPRESSION: Extensive consolidation has developed in the right middle and lower lobe compatible with pneumonia. Trace right pleural effusion.
[2018-01-01 13:10] LABS: ABSOLUTE BASOPHIL COUNT 0 /CUMM (0.0-0.2); ABSOLUTE EOSINOPHIL COUNT 0 /CUMM (0.0-0.7); ABSOLUTE GRANULOCYTE CT 4.5 /CUMM (1.4-6.5); ABSOLUTE LYMPH COUNT 0.6 /CUMM (1.2-3.4); ABSOLUTE MONOCYTE COUNT 0.3 /CUMM (0.10-0.60); BASOPHIL % 0.3 % (0.0-2.0); EOSINOPHIL % 0.6 % (0-5); HEMATOCRIT 39.4 % (42-52); MEAN PLATELET VOLUME 9.4 FL (7.4-10.4); PLATELET COUNT 137 /CUMM (130-400); RBC DISTRIBUTION WIDTH 16.9 % (11.5-14.5); RED BLOOD CELL CT 4.63 /CUMM (4.70-6.10); WHITE BLOOD CELL COUNT 5.5 /CUMM (4.8-10.8)
[2018-01-01 13:32] LABS: GRANULOCYTE % 82.8 % (42.2-75.2)
--- NOTE | 2018-01-01 16:16 | History & Physical ---
BakariLinette 01/01/18 1614: General Information and HPI MD Statement: I have seen and personally examined LAURITA AMIN and documented this H&P. The patient is a 52 year old M who presented with a patient stated chief complaint of [fatigue, cough with sputum production, and SOB]. Source of Information: patient, family Exam Limitations: no limitations History of Present Illness: 52 year old male with PMH significant for CLL being treated by Dr. Valdovinos with Imbruvica, HTN, HLD, recent history of Legionella pneumonia in October 2017. Patient states he underwent a CT chest abd/pelv two weeks ago that was clear. He reports one week of fatigue, cough with non bloody sputum production, SOB, and fever of 100.3 at home. He also reports post nasal drip that makes him nauseated at times. He also reports daily episodes of diarrhea approx 3 episodes per day which he states is a side effect from his CLL medication. Patient denies chills, vomiting, abdominal pain. Allergies/Medications Allergies: Coded Allergies: No Known Allergies (09/10/17) Home Med list Apixaban (Eliquis) 5 MG TABLET 1 TAB PO BID AFIB Atorvastatin Calcium 20 MG TABLET 1 TAB PO DAILY CHOLESTEROL (Reported) Azelastine HCl (Astepro) 205.5 MCG (0.15 %) SPRAY.PUMP 2 SPRAY NASB DAILY NASAL RUNNING (Reported) Diltiazem HCl (Diltiazem 24HR ER) 120 MG CAP.ER.24H 1 CAP PO DAILY AFIB Escitalopram Oxalate 5 MG TABLET 1 TAB PO PRN MENTAL HEALTH (Reported) Losartan Potassium 50 MG TABLET 1 TAB PO DAILY HEART (Reported) Sotalol (Betapace) 80 MG TABLET 1 TAB PO BID AFIB (Reported) Compliance With Home Meds: GOOD Past History Travel History Traveled to [place] past 21 day No Medical History Neurological: NONE EENT: NONE Cardiovascular: hypertension, hyperlipidemia Respiratory: NONE Gastrointestinal: NONE Renal: NONE Musculoskeletal: NONE Psychiatric: NONE Endocrine: NONE Blood Disorders: pancytopenia Cancer(s): CLL History of MRSA: No History of VRE: No History of CDIFF: No Influenza Vaccine: 09/01/17 Surgical History Surgical History: non-contributory Past Family/Social History Family History Relations & Conditions if any MOTHER (Arrythmias ( type not known )). Psychosocial History Where do you live? Home ETOH Use: occasional use, two glasses of wine per night Illicit Drug Use: denies illicit drug use Functional Ability ADLs Independent: dressing, eating, toileting, bathing. Ambulation: independent Review of Systems Review of Systems Constitutional: Reports: see HPI. EENTM: Reports: no symptoms. Cardiovascular: Reports: no symptoms. Respiratory: Reports: no symptoms. GI: Reports: no symptoms. Genitourinary: Reports: no symptoms. Musculoskeletal: Reports: no symptoms. Skin: Reports: no symptoms. Neurological/Psychological: Reports: no symptoms. Hematologic/Endocrine: Reports: no symptoms. Immunologic/Allergic: Reports: no symptoms. All Other Systems: Reviewed and Negative Exam & Diagnostic Data Last 24 Hrs of Vital Signs/I&O Vital Signs Date Time Temp Pulse Resp B/P B/P Pulse O2 O2 Flow FiO2 Mean Ox Delivery Rate 01/01 1620 99.3 01/01 1616 99.3 128/88 01/01 1355 90 18 109/69 97 Room Air 01/01 1305 97 Room Air 01/01 1154 97.7 91 18 110/73 95 Room Air Room Air Intake & Output 01/01 1600 01/01 0800 01/01 0000 Intake Total 1500 Output Total Balance 1500 Intake, IV 1500 Patient 200 lb Weight Weight Reported by Patient Measurement Method Physical Exam General Appearance Alert, Oriented X3, Cooperative, No Acute Distress Skin No Rashes, No Breakdown Skin Temp/Moisture Exam: Warm/Dry Sepsis Skin Exam (color): Normal for Ethnicity HEENT Atraumatic, PERRLA Neck Supple Lymphatic Cervical nl Cardiovascular Regular Rate, Normal S1, Normal S2 Lungs crackles and rhonchi right sided Abdomen Soft, No Tenderness Neurological Normal Tone, Sensation Intact Extremities No Clubbing, No Edema, Normal Pulses Vascular Normal Pulses, Pulses Symmetrical Assessment/Plan Assessment: Assessment: 52 year old male with PMH significant for CLL being treated by Dr. Valdovinos with Imbruvica (last dose two weeks ago), HTN, HLD, A-fib, recent history of Legionella pneumonia in October 2017. Patient admitted for right lobar PNA, fatigue, and EUGENE (Cr 2.1). Labs revealed transaminitis with AST 325, ALT 204, and Alk Phos 272. Transaminitis likely 2/2 CLL medication vs statin vs etoh. Pneumonia likely 2/2 CLL medication immunosuppression. #Right lobar pneumonia -ID consulted; recs: Ceftriaxone and Azithromycin #Fatigue -likely associated with PNA and CLL; continue to monitor #EUGENE -hydration with IVF -Monitor Cr for resolution #Transaminitis -will continue to monitor; hold statin #HTN -Will hold home med: Losartan in the setting of EUGENE -Continue to monitor BP #HLD -Will hold home medication Atorvastatin in the setting of elevated LFTs #Afib -Sotalol-change from home dose of 80mg bid to 80mg daily in the setting of EUGENE and decreased renal clearance -Will continue Diltiazem -Will continue Eliquis DVT Proph: ALPS, Eliquis, and ambulation As Ranked By This Provider Problem List: 1. CLL (chronic lymphocytic leukemia) 2. Pneumonia Qualifiers Pneumonia type: due to unspecified organism Laterality: right Lung location: middle lobe of lung Qualified Code: J18.1 - Lobar pneumonia, unspecified organism 3. EUGENE (acute kidney injury) Core Measures/Misc (03/20) Acute Coronary Syndrome ACS Diagnosis: No Congestive Heart Failure Congestive Heart Failure Diagnosis No Cerebrovascular Accident CVA/TIA Diagnosis: No VTE (View Protocol) VTE Risk Factors Cancer/chemo/othr therapy No Mechanical VTE Prophylaxis d/t N/A MechProphylax Ordered No VTE Pharm Prophylaxis d/t NA PharmProphylax ordered Sepsis (View protocol) Sepsis Present: No If YES complete Sepsis Event Note If YES complete Sepsis Event Note Itz Hernández MD 01/01/18 1800: Core Measures/Misc (03/20) Sepsis (View protocol) If YES complete Sepsis Event Note If YES complete Sepsis Event Note Resident Review Statement Resident Statement: examined this patient, discussed with international account executive, agreed with international account executive, discussed with family, reviewed EMR data (avail), discussed with nursing , reviewed images Other Findings: Mr. Yin is a 52-year-old male with past medical history of CLL on ibrutinib followed by Dr. Pantoja, hypertension, hyperlipidemia, and recently diagnosed paroxysmal atrial fibrillation on apixaban who presents with fatigue and productive cough. The patient was recently admitted in October and treated for Legionella pneumonia. He improved from this and subsequent imaging on December 22 showed no remaining pathology. However, over the past 1-2 weeks the patient has become progressively fatigued with productive nonbloody cough and postnasal drip. He also complains of chronic diarrhea about 3 times a day without blood. The patient was recently diagnosed with paroxysmal atrial fibrillation and is currently on apixaban but he had an appointment this week with his food service specialist. He was going to be taken off the apixaban if he remained in sinus rhythm. He denies any chest pain, shortness of breath no abdominal pain, nausea, vomiting, headache, dysuria, or rash. He is a never smoker, drinks 2 alcoholic drinks per day, and denies recreational drug use. On presentation, vital signs were T 97.7, HR 91, RR 18, BP 110/73, saturating 95 % room air. Laboratories are significant for hemoglobin 13.0, 7 bands, sodium 132, potassium 3.4, chloride 89, carbon dioxide 31, BUN 34, creatinine 2.1 ( baseline 0.7 pulse (, glucose 119, AST 325, ALT 204, alkaline phosphatase 272. Chest x-ray shows a right middle/lower lobe pneumonia. Overall, this most likely is a community-acquired pneumonia. The patient did have a recent pneumonia but subsequent imaging showed complete resolution so I do not think it is a chronic infection. His transaminitis is likely related to medication (atorvastatin or iburtinib). His acute kidney injury is likely secondary to prerenal azotemia in the setting of infection. Problem list: 1. Community acquired pneumonia 2. Acute kidney injury 3. Transaminitis 4. Mild hyponatremia 5. Mild hypokalemia 6. Paroxysmal atrial fibrillation 7. CLL Plan: -Ceftriaxone and azithromycin -Dr. Pantoja consult -Cardiology consult in AM -patient is supposed to stop anticoagulation if he remains in sinus rhythm -IV fluid hydration -Hold losartan and atorvastatin -Follow cultures and urinary antigens -EKG -Reduce sotalol to 80 mg daily given acute renal failure -Continue other home medications DVT prophylaxis with apixaban Heart healthy diet Full code Richa AMAYA,Jimena 01/02/18 0720: Core Measures/Misc (03/20) Sepsis (View protocol) If YES complete Sepsis Event Note If YES complete Sepsis Event Note Attending MD Review Statement Attending Statement Attending MD Statement: examined this patient, discuss w/resident/PA/ASSOCIATE TECHNICIAN, agreed w/resident/PA/ASSOCIATE TECHNICIAN, reviewed EMR data (avail), discussed with nursing, reviewed images Attending Assessment/Plan: See medical brief addendum note
[2018-01-01] MEDS ORDERED: BETAPACE80 MG PO (16:24)
--- NOTE | 2018-01-01 17:13 | Admission Certification ---
Admission Certification Certification Statement - As attending physician, I certify that at the time of - admission, based on clinical presentation, severity of - symptoms, need for further diagnostic testing and - therapeutic interventions, and risk of adverse outcomes - without in-hospital treatment, in my clinical assessment, - this patient requires an acute hospital stay for a minimum - of two nights or longer. I have also considered psychsocial - factors such as support system, advanced age, financial - issues, cognitive issues, and failed out-patient treatments, - past re-admission history, safety of patient, and lack of - compliance as applicable. Specific rationale supporting this admission is: Pneumonia and cinthia in pt with CLL
--- NOTE | 2018-01-01 17:15 | PN- Att Addend ---
Attending Addendum Attending Brief Note 52-year-old male with past medical history of CLL who was on Ibrutinib until fairly recently. He was here in October and was diagnosed with acute Legionella pneumonia and treated with antibiotics. He also has new onset atrial fibrillation maintained on sotalol, Cardizem and Eliquis. Patient has been followed very closely by Dr. Reyna at the cancer center and had a CT chest abdomen and pelvis with IV contrast on December 22 showed near complete resolution of his multifocal pulmonary opacities. There was some mild hepatic steatosis seen and he had some elevated transaminases which have been attributed to the Ibrutinib. His brings him in again this time with extreme fatigue, malaise and a nonproductive cough. He is noted to be hyponatremic, hypokalemic and has EUGENE and a chest x-ray that showing pneumonia again. At this time I'm not worried about a resistant organism or a failure of his previous pneumonia to have improved given his radiographic resolution. We got blood cultures and will start him on IV ceftriaxone and azithromycin and get his urine Legionella and pneumococcal antigen. We'll hold his MIROSLAVA inhibitor and hydrate him as he looks dehydrated and prerenal and will closely follow the sodium and the BUN and creatinine. Will obviously not give him any hepatotoxic meds and check the LFTs. Will need to cut the dose of sotalol given the EUGENE and cut the dose of Eliquis. He is in sinus rhythm and he says he was due to see his communication and outreach manager who may consider taking him off the anticoagulation given that he is in sinus so we'll call cardiology and Dr. Reyna to see him in a.m.
[2018-01-01 18:31] VITALS: BP 94/60
[2018-01-01 20:03] VITALS: BP 112/76
[2018-01-01 21:54] VITALS: BP 120/70
[2018-01-02 06:52] VITALS: BP 134/86
--- NOTE | 2018-01-02 06:59 | PN- Housestaff ---
See Addendum Subjective Follow-up For: RIGHT SIDED PNEUMONIA Complaints: no complaints Subjective: Patient febrile overnight to Tmax of 101.5 responded to tylenol. Patient reports continued coughing with yellow sputum production. Denies chest pain, SOB, nausea, diarrhea, headache, dysuria. Review of Systems Constitutional: Reports: see HPI. Objective Last 24 Hrs of Vital Signs/I&O Vital Signs Date Time Temp Pulse Resp B/P B/P Pulse O2 O2 Flow FiO2 Mean Ox Delivery Rate 01/02 0652 101.0 96 18 134/86 94 Room Air 01/02 0141 99.6 / 2356 100.2 / 2335 Room Air 01/01 2155 101.5 01/01 2154 101.5 95 20 120/70 94 01/01 2003 112/76 01/01 1831 98.6 89 20 94/60 95 01/01 1827 Room Air 01/01 1715 99.9 76 18 124/68 98 Room Air 01/01 1620 99.3 01/01 1616 99.3 128/88 01/01 1355 90 18 109/69 97 Room Air 01/01 1305 97 Room Air 01/01 1154 97.7 91 18 110/73 95 Room Air Room Air Intake & Output 01/02 0800 / 0000 01 1600 Intake Total 1560 1080 1500 Output Total 300 Balance 1260 1080 1500 Intake, IV 9446 081 6918 Intake, Oral 360 480 Output, Urine 300 Patient 200 lb 200 lb Weight Weight Reported by Patient Reported by Patient Measurement Method Physical Exam General Appearance: Alert, Oriented X3, Cooperative, No Acute Distress Skin: ecchymosis to medial aspect left thigh. no surrounding erythema Skin Temp/Moisture Exam: Warm/Dry Sepsis Skin Exam (color): Normal for Ethnicity HEENT: Atraumatic, PERRLA Neck: Supple Cardiovascular: Regular Rate, Normal S1, Normal S2, No Murmurs Lungs: decreased BS right middle lobe. crackles right base. Left lung nicholas CTA Abdomen: Normal Bowel Sounds, Soft, No Tenderness Neurological: Normal Tone, Sensation Intact Extremities: No Edema, Normal Pulses, No Tenderness/Swelling Assessment/Plan Assessment: 52 year old male with PMH significant for CLL recently stopped taking Ibrutinib being monitored by Dr. Valdovinos, HTN, HLD, pAfib, recent history of Legionella PNA completed tx course admitted now with RML and RLL PNA. Patient was started on Ceftriaxone and Azithromycin and cultures sent. Urine antigen was positive for Legionella. This can remain positive for several weeks after the original diagnosis, so it is unclear if patient has become re-infected with Legionella. Things to consider include housing AC unit or occupational (less likely if coworkers are not infected). Patient is immunocompromised and more suseptible to infection. ID was consulted and will be following. #RML/RLL PNA - Ceftriaxone/Azithromycin -f/u sputum cx results and de escalate as appropriate #Chronic medical issues -home meds DVT Prophylaxis: on Eliquis Problem List: 1. Pneumonia Pain Ratin Pain Location: none Pain Goal: Remain pain free Pain Plan: see A/P Tomorrow's Labs & Rationales: cbc, bep
--- NOTE | 2018-01-02 07:42 | Cons- Hematology ---
General Information and HPI Consulting Request Date of Consult: 01/02/18 Requested By: Richa AMAYA,Jimena Avery Reason for Consult: CLL, pneumonia Source of Information: patient, old records Exam Limitations: no limitations History of Present Illness: Mr. Nichols is a 52-year-old male with HTN, HLD, atrial fibrillation, and CLL s/pc FCR and currently on ibrutinib (on hold for over 2 weeks due to elevated LFT) who presented to the ER for fever, malaise, and coughing. He was seen in clinic on Tuesday and was relatively stable. He went to a BBQ and was "out of it." He was noted to have fever. He continues to have sinus congestion and drainage. He gets nauseated with the postnasal drip. He has coughing secondary to this. He continues to have fatigue. Due to the symptoms, he presented to the hospital. On presentation, he was noted to be febrile with Tmax of 101.5. His blood work demonstrated new EUGENE with creatinine of 2.1. LFT was elevated. AST is 325 and ALT is 204, and ALK is 272. CXR demonstrated new consolidation in the RML and RLL. He was admitted and started on ceftriaxone and azithromycin. He remains febrile overnight. He feels a little better with the IVF. Allergies/Medications Allergies: Coded Allergies: No Known Allergies (09/10/17) Home Med List: Apixaban (Eliquis) 5 MG TABLET 1 TAB PO BID AFIB Atorvastatin Calcium 20 MG TABLET 1 TAB PO DAILY CHOLESTEROL (Reported) Azelastine HCl (Astepro) 205.5 MCG (0.15 %) SPRAY.PUMP 2 SPRAY NASB DAILY NASAL RUNNING (Reported) Diltiazem HCl (Diltiazem 24HR ER) 120 MG CAP.ER.24H 1 CAP PO DAILY AFIB Escitalopram Oxalate 5 MG TABLET 1 TAB PO PRN MENTAL HEALTH (Reported) Losartan Potassium 50 MG TABLET 1 TAB PO DAILY HEART (Reported) Sotalol (Betapace) 80 MG TABLET 1 TAB PO BID AFIB (Reported) Current Medications: Current Medications Sig/Sai Start time Last Medication Dose Route Stop Time Status Admin Acetaminophen 1,000 MG Q8P PRN 01/02 0715 AC PO Acetaminophen 650 MG ONCE ONE 01/01 2200 DC 01/01 PO 01/01 2201 2155 Acetaminophen 975 MG ONCE ONE 01/01 1645 DC 01/01 PO 01/01 1646 1620 Acetaminophen 0 .STK-MED ONE 01/01 1618 DC PO Apixaban 5 MG BID 01/01 2100 AC 01/01 PO 2000 Azithromycin 250 MG DAILY 01/02 0900 AC PO Azithromycin 500 MG ONCE ONE 01/01 1415 DC 01/01 Sodium Chloride 250 ML IV 01/01 1514 1528 Ceftriaxone Sodium 1,000 MG DAILY@1530 01/02 1530 AC IV Ceftriaxone Sodium 0 .STK-MED ONE 01/01 1514 DC .ROUTE Ceftriaxone Sodium 1,000 MG ONCE ONE 01/01 1415 DC 01/01 IV 01/01 1416 1527 Diltiazem HCl 120 MG DAILY 01/02 900 AC PO Escitalopram Oxalate 5 MG DAILY 01/02 900 AC PO Lactated Ringer's 1,000 ML Q6H 01/01 1745 AC 01/02 IV 0138 Sodium Chloride 1,000 ML BOLUS ONE 01/01 1415 DC 01/01 IV 01/01 1514 1527 Sotalol HCl 80 MG DAILY 01/02 900 AC PO Review of Systems Review of Systems Constitutional: Reports: fever, weakness. Denies: chills. EENTM: Reports: nasal congestion. Cardiovascular: Denies: chest pain. Respiratory: Reports: cough, short of breath. GI: Reports: abdominal pain. Denies: diarrhea, nausea, vomiting. Genitourinary: Denies: dysuria. Neurological/Psychological: Denies: anxiety, confusion. Hematologic/Endocrine: Denies: bruising, bleeding. All Other Systems: Reviewed and Negative Past History Travel History Traveled to [place] past 21 day No Medical History Blood Transfusion Hx: Yes Neurological: NONE EENT: NONE Cardiovascular: AFIB, hypertension, hyperlipidemia Respiratory: NONE Gastrointestinal: NONE Renal: NONE Musculoskeletal: NONE Psychiatric: NONE Endocrine: NONE Blood Disorders: pancytopenia Cancer(s): CLL Surgical History Surgical History: non-contributory Family History Relations & Conditions If Any: MOTHER (Arrythmias ( type not known )). Psychosocial History Where Do You Live? Home Smoking Status: Never Smoked ETOH Use: occasional use, two glasses of wine per night Illicit Drug Use: denies illicit drug use Functional Ability ADLs Independent: dressing, eating, toileting, bathing. Ambulation: independent Exam & Diagnostic Data Vital Signs and I&O Vital Signs Date Time Temp Pulse Resp B/P B/P Pulse O2 O2 Flow FiO2 Mean Ox Delivery Rate 01/02 0725 101.1 01/02 0652 101.0 96 18 134/86 94 Room Air 01/02 0141 99.6 01/01 2356 100.2 01/01 2335 Room Air 01/01 2155 101.5 01/01 2154 101.5 95 20 120/70 94 01/01 2003 112/76 01/01 1831 98.6 89 20 94/60 95 01/01 1827 Room Air 01/01 1715 99.9 76 18 124/68 98 Room Air 01/01 1620 99.3 01/01 1616 99.3 128/88 01/01 1355 90 18 109/69 97 Room Air 01/01 1305 97 Room Air 01/01 1154 97.7 91 18 110/73 95 Room Air Room Air Intake & Output 01/02 0800 01/02 0000 01/01 1600 Intake Total 1560 1080 1500 Output Total 300 Balance 1260 1080 1500 Intake, IV 0867 564 4746 Intake, Oral 360 480 Output, Urine 300 Patient 98.231 kg 90.718 kg 90.718 kg Weight Weight Bed scale Reported by Patient Reported by Patient Measurement Method Physical Exam General Appearance: well developed/nourished, no apparent distress, alert, awake , comfortable Head: atraumatic, normal appearance Eyes: Bilateral: PERRL. Ears, Nose, Throat: normal pharynx, nasal congestion Respiratory: chest non-tender, quiet respiration, crackles (RML/RLL) Cardiovascular: tachycardia Gastrointestinal: normal bowel sounds, soft, non-tender, no organomegaly Extremities: no edema Neurologic/Psych: awake, alert, oriented x 3 Skin: warm/dry Lymphatic: no anterior cervical mehul Last 48 Hours of Lab Results: Laboratory Tests 01/01 1252 Chemistry Sodium (137 - 145 mmol/L) 132 L Potassium (3.5 - 5.1 mmol/L) 3.4 L Chloride (98 - 107 mmol/L) 89 L Carbon Dioxide (22 - 30 mmol/L) 31 H Anion Gap (5 - 16) 12 BUN (9 - 20 mg/dL) 34 H Creatinine (0.7 - 1.2 mg/dL) 2.1 H Estimated GFR (>60 ml/min) 34 L BUN/Creatinine Ratio (7 - 25 %) 16.2 Glucose (65 - 99 mg/dL) 119 H Calcium (8.4 - 10.2 mg/dL) 8.9 Total Bilirubin (0.2 - 1.3 mg/dL) 1.0 AST (17 - 59 U/L) 325 H ALT (21 - 72 U/L) 204 H Alkaline Phosphatase (< 127 U/L) 272 H Total Protein (6.3 - 8.2 g/dL) 5.3 L Albumin (3.5 - 5.0 g/dL) 3.3 L Globulin (1.9 - 4.2 gm/dL) 2.0 Albumin/Globulin Ratio (1.1 - 2.2 %) 1.7 Hematology CBC w Diff MAN DIFF ORDERED WBC (4.8 - 10.8 /CUMM) 5.5 RBC (4.70 - 6.10 /CUMM) 4.63 L Hgb (14.0 - 18.0 G/DL) 13.0 L Hct (42 - 52 %) 39.4 L MCV (80.0 - 94.0 FL) 85.0 MCH (27.0 - 31.0 PG) 28.0 MCHC (33.0 - 37.0 G/DL) 33.0 RDW (11.5 - 14.5 %) 16.9 H Plt Count (130 - 400 /CUMM) 137 MPV (7.4 - 10.4 FL) 9.4 Gran % (42.2 - 75.2 %) 82.8 H Lymphocytes % (20.5 - 51.1 %) 11.3 L Monocytes % (1.7 - 9.3 %) 5.0 Eosinophils % (0 - 5 %) 0.6 Basophils % (0.0 - 2.0 %) 0.3 Absolute Granulocytes (1.4 - 6.5 /CUMM) 4.5 Segmented Neutrophils (42.2 - 75.2 %) 77 H Band Neutrophils (0.0 - 5.0 %) 7 H Absolute Lymphocytes (1.2 - 3.4 /CUMM) 0.6 L Lymphocytes (20.5 - 51.1 %) 11 L Monocytes (1.7 - 9.3 %) 5 Absolute Monocytes (0.10 - 0.60 /CUMM) 0.3 Absolute Eosinophils (0.0 - 0.7 /CUMM) 0 Absolute Basophils (0.0 - 0.2 /CUMM) 0 Poikilocytosis 1+ Anisocytosis 2+ Imaging/Other Studies: CXR 01/01/2018: Extensive consolidation has developed in the right middle and lower lobe compatible with pneumonia. Trace right pleural effusion. Assessment/Plan Assessment: Mr. Nichols is a 52-year-old male with HTN, HLD, atrial fibrillation, and CLL s/pc FCR and currently on ibrutinib (on hold for over 2 weeks due to elevated LFT) who presented to the ER for fever, malaise, and coughing. On presentation, he is noted to be febrile. CXR concerning for RML/RLL pneumonia. He has new EUGENE. He has worsening LFT. His ibrutinib has been held for over [address] on 2017 demonstrated significant improvement in his CLL. CBC also demonstrated improvement in CLL. LFT is less likely secondardy to the ibrutinib. He should limit or avoid hepatotoxic medication. EUGENE may be related to dehydration. He should have this monitor closely. He may have an aspiration PNA/Pnuemonitis. This may be related to his chronic rhinorhea. He may be continued on antibiotics for now. Recommendations: RML/RLL Pneumonia: -continue antibiotics as per primary -follow up cultures -IVF Elevated LFT: -limit hepatotoxic medication -may need GI evaluation if persistent EUGENE: -IVF Problem List: 1. EUGENE (acute kidney injury) 2. Pneumonia 3. CLL (chronic lymphocytic leukemia) 4. Transaminitis Other Findings/Comments: Please call [phone] with any questions or concerns Consult Acknowledgment - Thank you for your consult request.
[2018-01-02 08:34] LABS: ABSOLUTE BASOPHIL COUNT 0 /CUMM (0.0-0.2); ABSOLUTE EOSINOPHIL COUNT 0 /CUMM (0.0-0.7); ABSOLUTE LYMPH COUNT 0.4 /CUMM (1.2-3.4); ABSOLUTE MONOCYTE COUNT 0.3 /CUMM (0.10-0.60); BASOPHIL % 0.1 % (0.0-2.0); EOSINOPHIL % 0.6 % (0-5); GRANULOCYTE % 80.5 % (42.2-75.2); MEAN CORPUSCULAR HGB 28.1 PG (27.0-31.0); MEAN CORPUSCULAR HGB CONC 33.3 G/DL (33.0-37.0); MEAN CORPUSCULAR VOLUME 84.4 FL (80.0-94.0); MEAN PLATELET VOLUME 9.9 FL (7.4-10.4); PLATELET COUNT 111 /CUMM (130-400); RBC DISTRIBUTION WIDTH 16.7 % (11.5-14.5); RED BLOOD CELL CT 3.83 /CUMM (4.70-6.10); WHITE BLOOD CELL COUNT 3.7 /CUMM (4.8-10.8)
[2018-01-02 08:45] LABS: HEMATOCRIT 32.3 % (42-52)
[2018-01-02 15:00] VITALS: BP 120/80
--- NOTE | 2018-01-02 15:15 | Cons- Infect Disease ---
General Information and HPI Consulting Request Date of Consult: 01/02/18 Requested By: Odilon Hood MD Reason for Consult: Right middle lobe/right lower lobe pneumonia Source of Information: patient, family, old records History of Present Illness: This is a 52-year-old man with a history of hypertension, hyperlipidemia and CLL , initially diagnosed and treated 4 years prior to admission, with a relapse diagnosed by bone marrow 4 months prior to admission, at which time he was begun on chemotherapy in the form of Ibrutinib, hospitalized 2 months prior to admission with Legionella pneumonia involving the right lung, after 1 use of his hot tub and treated with a one week course of Azithromycin with improvement, found to be in atrial fibrillation on that hospitalization (with cardioversion successfully performed after discharge), with elevated liver enzymes and thrombocytopenia noted 2 weeks prior to admission, for which his chemotherapy was held, with a CT of the chest, abdomen and pelvis 10 days prior to admission revealing near complete resolution of his multifocal opacities in his lung and a significant decrease in his adenopathy, admitted on January 01 with one day of diaphoresis, a 1-2 week history of cough, productive of yellow/white sputum, fatigue and anorexia and a 15 pound weight loss over the past month. On admission he was initially afebrile. Laboratory data revealed a white blood cell count of 5.5, with 77 segs, 7 bands, platelets 137,000, with vacuoles noted in some polys, BUN/creatinine 34 and 2.1, sodium 132, alkaline phosphatase 272, AST/ALT 325 and 204. Chest x-ray revealed extensive consolidation in the right middle and lower lobes. He was begun on Ceftriaxone and Azithromycin. He spiked a fever to 101.5 in the evening and was again febrile this morning. He does feel somewhat improved today. He denies any recent travel or exposure to any different or unusual sources of water. Allergies/Medications Allergies: Coded Allergies: No Known Allergies (09/10/17) Home Med List: Apixaban (Eliquis) 5 MG TABLET 1 TAB PO BID AFIB Atorvastatin Calcium 20 MG TABLET 1 TAB PO DAILY CHOLESTEROL (Reported) Azelastine HCl (Astepro) 205.5 MCG (0.15 %) SPRAY.PUMP 2 SPRAY NASB DAILY NASAL RUNNING (Reported) Diltiazem HCl (Diltiazem 24HR ER) 120 MG CAP.ER.24H 1 CAP PO DAILY AFIB Escitalopram Oxalate 5 MG TABLET 1 TAB PO PRN MENTAL HEALTH (Reported) Losartan Potassium 50 MG TABLET 1 TAB PO DAILY HEART (Reported) Sotalol (Betapace) 80 MG TABLET 1 TAB PO BID AFIB (Reported) Past History Travel History Traveled to [place] past 21 day No Medical History Blood Transfusion Hx: Yes Neurological: NONE EENT: NONE Cardiovascular: AFIB, hypertension, hyperlipidemia Respiratory: NONE Gastrointestinal: NONE Renal: NONE Musculoskeletal: NONE Psychiatric: NONE Endocrine: NONE Blood Disorders: CLL History of MRSA: No History of VRE: No History of CDIFF: No Isolation History: Standard Influenza Vaccine: 09/01/17 Surgical History Surgical History: non-contributory Family History Relations & Conditions If Any: MOTHER (Arrythmias ( type not known )). Psychosocial History Where Do You Live? Home Smoking Status: Never Smoked ETOH Use: occasional use, two glasses of wine per night Illicit Drug Use: denies illicit drug use Functional Ability ADLs Independent: dressing, eating, toileting, bathing. Ambulation: independent Review of Systems Review of Systems All Other Systems: Reviewed and Negative Exam & Diagnostic Data Last 24 Hrs of Vital Signs/I&O Vital Signs Date Time Temp Pulse Resp B/P B/P Pulse O2 O2 Flow FiO2 Mean Ox Delivery Rate 01/02 1500 99.5 90 22 120/80 98 / 1028 Room Air 01/02 0918 99.4 01/02 0824 100.3 01/02 0800 Room Air 01/02 0725 101.1 01/02 0652 101.0 96 18 134/86 94 Room Air 01/02 0141 99.6 01/01 2356 100.2 01/01 2335 Room Air 01/01 2155 101.5 01/01 2154 101.5 95 20 120/70 94 07/ 2003 112/76 01/01 1831 98.6 89 20 94/60 95 /01 1827 Room Air 01/01 1715 99.9 76 18 124/68 98 Room Air 01/01 1620 99.3 01/01 1616 99.3 128/88 Intake & Output 01/02 1600 /02 0800 01/02 0000 Intake Total 1850 1560 1080 Output Total 300 Balance 1850 1260 1080 Intake, IV 1050 1200 600 Intake, Oral 800 360 480 Number 2 Bowel Movements Output, Urine 300 Patient 217 lb 200 lb Weight Weight Bed scale Reported by Patient Measurement Method Physical Exam Other Physical Findings: He is awake and alert in no acute distress. T-max 101.5. Skin reveals no rash. HEENT exam is negative. Neck is supple with no adenopathy. Lungs crackles on the right. Heart regular rhythm with no murmur. Abdomen is soft, nontender with positive bowel sounds. Back no CVA tenderness. Extremities no cyanosis, clubbing or edema. Neuro is without focality. Last 24 Hours of Lab Results: Laboratory Tests 01/02 733 Chemistry Sodium (137 - 145 mmol/L) 131 L Potassium (3.5 - 5.1 mmol/L) 3.0 L Chloride (98 - 107 mmol/L) 95 L Carbon Dioxide (22 - 30 mmol/L) 24 Anion Gap (5 - 16) 12 BUN (9 - 20 mg/dL) 23 H Creatinine (0.7 - 1.2 mg/dL) 1.2 Estimated GFR (>60 ml/min) > 60 BUN/Creatinine Ratio (7 - 25 %) 19.2 Magnesium (1.6 - 2.3 mg/dL) 1.3 L Total Bilirubin (0.2 - 1.3 mg/dL) 0.9 Direct Bilirubin (< 0.4 mg/dL) 0.8 H AST (17 - 59 U/L) 290 H ALT (21 - 72 U/L) 173 H Alkaline Phosphatase (< 127 U/L) 298 H Total Protein (6.3 - 8.2 g/dL) 4.4 L Albumin (3.5 - 5.0 g/dL) 2.5 L Hematology CBC w Diff MAN DIFF ORDERED WBC (4.8 - 10.8 /CUMM) 3.7 L RBC (4.70 - 6.10 /CUMM) 3.83 L Hgb (14.0 - 18.0 G/DL) 10.7 L Hct (42 - 52 %) 32.3 L MCV (80.0 - 94.0 FL) 84.4 MCH (27.0 - 31.0 PG) 28.1 MCHC (33.0 - 37.0 G/DL) 33.3 RDW (11.5 - 14.5 %) 16.7 H Plt Count (130 - 400 /CUMM) 111 L MPV (7.4 - 10.4 FL) 9.9 Gran % (42.2 - 75.2 %) 80.5 H Lymphocytes % (20.5 - 51.1 %) 12.0 L Monocytes % (1.7 - 9.3 %) 6.8 Eosinophils % (0 - 5 %) 0.6 Basophils % (0.0 - 2.0 %) 0.1 Absolute Granulocytes (1.4 - 6.5 /CUMM) 3.0 Segmented Neutrophils (42.2 - 75.2 %) 67 Band Neutrophils (0.0 - 5.0 %) 6 H Absolute Lymphocytes (1.2 - 3.4 /CUMM) 0.4 L Lymphocytes (20.5 - 51.1 %) 24 Monocytes (1.7 - 9.3 %) 3 Absolute Monocytes (0.10 - 0.60 /CUMM) 0.3 Absolute Eosinophils (0.0 - 0.7 /CUMM) 0 Absolute Basophils (0.0 - 0.2 /CUMM) 0 Platelet Estimate (ADEQUATE) VERIFIED BY SMEAR Normochromic RBCs VERIFIED Last 24 Hours of Suhail Results: Blood cultures 2 January 01 negative Sputum culture January 01 mixed jimbo, with gram stain revealing moderate white blood cells and few organisms Urine strep pneumo antigen January 02 negative Urine Legionella antigen January 02 positive Diagnostic Data Recent Imaging Findings: Chest x-ray January 01 reveals extensive consolidation in the right middle and lower lobes, with a trace right pleural effusion Assessment/Plan Assessment/Plan Impression: This is a 52-year-old man with a history of CLL, initially diagnosed 4 years prior to admission, with a relapse 4 months prior to admission, hospitalized 2 months prior to admission with Legionella pneumonia involving the right lung, treated with a one week course of Azithromycin with improvement and with a staging CT of the chest, abdomen and pelvis 10 days prior to admission revealing near complete resolution of the multifocal opacities in his lung, admitted on January 01 with one day of diaphoresis, a 1-2 week history of cough, productive of yellow/white sputum, fatigue and anorexia and a 15 pound weight loss over the past month, found to be febrile with bandemia, vacuoles within the PMNs and Dohle bodies, a chest x-ray revealing extensive consolidation within the right middle and lower lobes and with his urine Legionella antigen again positive. His clinical picture is consistent with a multilobar pneumonia. The significance of the positive urine antigen is unclear as it may stay positive up to a year but, as he is immunocompromised, this could represent a relapse of his recent infection or even a new infection. Given his immunocompromised state it may be reasonable to treat him for a longer period of time, perhaps 2 weeks, and with a different antibiotic, for example a quinolone. Of interest he did use his hot tub once prior to his previous infection but not since and has no other obvious epidemiologic history to suggest a source for the Legionella. As noted above, the antigen test may have persisted from his recent infection; therefore other possible pathogens must be considered and treated. His elevated liver enzymes and thrombocytopenia were felt to be secondary to his chemotherapy, which was held 2 weeks prior to admission, but they could also be, in part, secondary to his infection. Suggestion: 1. Would send a sputum for Legionella 2. Discontinue Ceftriaxone and Azithromycin 3. Begin Levaquin 750 mg p.o. every 24 hours Consult Acknowledgment - Thank you for your consult request.
--- NOTE | 2018-01-02 17:03 | Cons- Cardiology ---
General Information and HPI Consulting Request Date of Consult: 01/02/18 Requested By: Odilon Hood MD History of Present Illness: Mr. Nichols is a 52 year old male with history of hypertension, dyslipidemia and CLL. At the time of his last office visit, Molina complained of profound weakness and exercise intolerance with mild shortness of breath. He was discovered to be in atrial fibrillation of unknown duration and also had Legionella pneumonia manifesting as fever/chills, diarrhea and a cough. Otherwise he denied chest pain, pressure, tightness, lightheadedness or palpitations. He is now status post antibiotic therapy for his infection. He was also started on Eliquis for stroke prophylaxis and both Cardizem and Metoprolol for rate control. He is now status post a DC cardioversion and feels improved. He is on Sotolol to maintain a sinus rhythm. This patient is now admitted with symptoms of profound fatigue, productive cough , fever and diaphoresis. He was discovered to have a pneumonia. It should be noted that Molina had no awareness of any palpitations and he denies chest discomfort, shortness of breath or lightheadedness. He was taken off Ibrutinib due to concerns that it can cause atrial fibrillation. He has noted multiple papules on his arms and hands bilaterally. The patient is currently in a sinus rhythm. It is noted that the patient had an elevated creatinine level of 2.1 upon admission which has improved. Cardiac workup included an echocardiogram showing a normal EF of 60% with mild left atrial enlargement, mild MR and TR and mild pulmonary hypertension. TFT's were normal. Allergies/Medications Allergies: Coded Allergies: No Known Allergies (09/10/17) Home Med List: Apixaban (Eliquis) 5 MG TABLET 1 TAB PO BID AFIB Atorvastatin Calcium 20 MG TABLET 1 TAB PO DAILY CHOLESTEROL (Reported) Azelastine HCl (Astepro) 205.5 MCG (0.15 %) SPRAY.PUMP 2 SPRAY NASB DAILY NASAL RUNNING (Reported) Diltiazem HCl (Diltiazem 24HR ER) 120 MG CAP.ER.24H 1 CAP PO DAILY AFIB Escitalopram Oxalate 5 MG TABLET 1 TAB PO PRN MENTAL HEALTH (Reported) Losartan Potassium 50 MG TABLET 1 TAB PO DAILY HEART (Reported) Sotalol (Betapace) 80 MG TABLET 1 TAB PO BID AFIB (Reported) Review of Systems Review of Systems: A twelve point review of systems is unremarkable. Past History Travel History Traveled to [place] past 21 day No Medical History Blood Transfusion Hx: Yes Neurological: NONE EENT: NONE Cardiovascular: AFIB, hypertension, hyperlipidemia Respiratory: NONE Gastrointestinal: NONE Renal: NONE Musculoskeletal: NONE Psychiatric: NONE Endocrine: NONE Blood Disorders: CLL Surgical History Surgical History: non-contributory Family History Relations & Conditions If Any: MOTHER (Arrythmias ( type not known )). Psychosocial History Where Do You Live? Home Smoking Status: Never Smoked ETOH Use: occasional use, two glasses of wine per night Illicit Drug Use: denies illicit drug use Functional Ability ADLs Independent: dressing, eating, toileting, bathing. Ambulation: independent Exam & Diagnostic Data Vital Signs and I&O Vital Signs Date Time Temp Pulse Resp B/P B/P Pulse O2 O2 Flow FiO2 Mean Ox Delivery Rate 01/02 1500 99.5 90 22 120/80 98 01/02 1028 Room Air 01/02 0918 99.4 01/02 0824 100.3 01/02 0800 Room Air 01/02 0725 101.1 01/02 0652 101.0 96 18 134/86 94 Room Air 01/02 0141 99.6 / 2356 100.2 / 2335 Room Air 01/01 2155 101.5 01/01 2154 101.5 95 20 120/70 94 / 2003 112/76 01/01 1831 98.6 89 20 94/60 95 /01 1827 Room Air 01/01 1715 99.9 76 18 124/68 98 Room Air Intake & Output 01/02 1600 01/02 0800 01/02 0000 01/01 1600 01/01 0801/01 0000 Intake Total 1850 1560 1080 1500 Output Total 300 Balance 1850 1260 1080 1500 Intake, IV 1050 7469 537 1958 Intake, Oral 800 360 480 Number 2 Bowel Movements Output, Urine 300 Patient 217 lb 200 lb 200 lb Weight Weight Bed scale Reported by Patient Reported by Patient Measurement Method Physical Exam: General: WD/WN male in NAD; alert and oriented x 3 HEENT: NC/AT, PERRL, EOMI Neck: no JVD, no carotid bruit Heart: RRR w/o murmur Lungs: clear on left with crackles and decreased air movement on right half way up Abdomen: soft, NT, +ve bowel sounds Extremities: no edema Assessment/Plan Assessment/Plan * This patient has a pneumonia and likely had some degree of dehydration upon initial presentation. He is in a sinus rhythm and now appears hemodynamically stable. His creatinine level has improved. It is reasonable to restart Sotolol at 40mg BID. If his creatinine remains in the normal range then we will increase it to 80mg BID to maintain a sinus rhythm. For now continue Eliquis for stroke prophylaxis. Consult Acknowledgment - Thank you for your consult request.
[2018-01-02 21:49] VITALS: BP 136/86
[2018-01-03 06:51] VITALS: BP 180/110
--- NOTE | 2018-01-03 07:28 | PN- Hematology ---
Subjective Subjective: He continues to have fever overnight. He denies any new pain. He continues to have a dry cough. His blood pressure remains elevated. He denies any nausea or vomiting. He denies any diarrhea. He has no new rash. Review of Systems Constitutional: Reports: fever, malaise. Denies: chills, weakness. EENTM: Reports: nasal congestion. Cardiovascular: Denies: chest pain. Respiratory: Reports: cough. Denies: short of breath, sputum production. Genitourinary: Denies: dysuria. Skin: Denies: rash. Neurological/Psychological: Denies: anxiety, confusion. Hematologic/Endocrine: Denies: bruising, bleeding. All Other Systems: Reviewed and Negative Objective Vital Signs and I&Os Vital Signs Date Time Temp Pulse Resp B/P B/P Pulse O2 O2 Flow FiO2 Mean Ox Delivery Rate 01/03 0651 98.7 78 18 180/110 92 Room Air 01/03 0219 98.6 / 0000 95 Room Air 01/02 2230 100.5 / 2221 100.5 / 2149 102.2 105 20 136/86 95 07/02 2135 102.7 /02 2100 102.7 / 1500 99.5 90 22 120/80 98 07/02 1028 Room Air / 0918 99.4 / 0824 100.3 / 0800 Room Air / 0725 101.1 Intake & Output / 0800 07/03 0000 07/02 1600 07/02 0800 07/02 0000 07/01 1600 Intake Total 692 987 3442 1560 1080 1500 Output Total 600 300 Balance 480 -90 1850 1260 1080 1500 Intake, IV 10 1050 1000 641 2091 Intake, Oral 480 500 800 360 480 Number 0 2 Bowel Movements Output, Urine 600 300 Patient 97.664 kg 98.231 kg 90.718 kg 90.718 kg Weight Weight Bed scale Bed scale Reported by Patient Reported by Patient Measurement Method Physical Exam: General Appearance: well developed/nourished, no apparent distress, alert, awake , comfortable Head: atraumatic, normal appearance Ears, Nose, Throat: normal pharynx, nasal congestion Respiratory: chest non-tender, quiet respiration, crackles (RML/RLL) Cardiovascular: tachycardia Gastrointestinal: normal bowel sounds, soft, non-tender, no organomegaly Extremities: no edema Neurologic/Psych: awake, alert, oriented x 3 Skin: warm/dry Lymphatic: no anterior cervical mehul Current Medications: Current Medications Sig/Sai Start time Last Medication Dose Route Stop Time Status Admin Acetaminophen 500 MG Q8P PRN 01/02 0745 AC 01/02 PO 2135 Acetaminophen 1,000 MG Q8P PRN 01/02 0715 DC 01/02 PO 0725 Apixaban 5 MG BID 01/01 2100 AC 01/02 PO 2337 Azithromycin 500 MG DAILY 01/03 900 CAN PO Azithromycin 250 MG DAILY 01/02 900 DC 01/02 PO 0834 Ceftriaxone Sodium 1,000 MG DAILY@1530 01/02 1530 CAN IV Diltiazem HCl 120 MG DAILY 01/02 900 AC 01/02 PO 0834 Escitalopram Oxalate 5 MG DAILY 01/02 900 AC 01/02 PO 0834 Lactated Ringer's 1,000 ML Q6H 01/01 1745 DC 01/02 IV 0834 Levofloxacin 750 MG DAILY 01/03 900 AC PO Losartan Potassium 50 MG DAILY 01/03 0645 AC PO Magnesium Chloride 64 MG ONCE ONE 01/02 1415 DC 01/02 PO 01/02 1416 1646 Patient Medication 1 ED ONE ONE 01/02 1100 DC Teaching ED 01/02 1101 Potassium Chloride 60 MEQ ONCE ONE 01/02 1145 DC 01/02 PO 01/02 1146 1153 Sotalol HCl 40 MG BID 01/03 900 AC PO Sotalol HCl 80 MG DAILY 01/02 09 DC 01/02 PO 0834 Results Last 24 Hours of Lab Results: Laboratory Tests 01/02 0733 Chemistry Sodium (137 - 145 mmol/L) 131 L Potassium (3.5 - 5.1 mmol/L) 3.0 L Chloride (98 - 107 mmol/L) 95 L Carbon Dioxide (22 - 30 mmol/L) 24 Anion Gap (5 - 16) 12 BUN (9 - 20 mg/dL) 23 H Creatinine (0.7 - 1.2 mg/dL) 1.2 Estimated GFR (>60 ml/min) > 60 BUN/Creatinine Ratio (7 - 25 %) 19.2 Magnesium (1.6 - 2.3 mg/dL) 1.3 L Total Bilirubin (0.2 - 1.3 mg/dL) 0.9 Direct Bilirubin (< 0.4 mg/dL) 0.8 H AST (17 - 59 U/L) 290 H ALT (21 - 72 U/L) 173 H Alkaline Phosphatase (< 127 U/L) 298 H Total Protein (6.3 - 8.2 g/dL) 4.4 L Albumin (3.5 - 5.0 g/dL) 2.5 L Hematology CBC w Diff MAN DIFF ORDERED WBC (4.8 - 10.8 /CUMM) 3.7 L RBC (4.70 - 6.10 /CUMM) 3.83 L Hgb (14.0 - 18.0 G/DL) 10.7 L Hct (42 - 52 %) 32.3 L MCV (80.0 - 94.0 FL) 84.4 MCH (27.0 - 31.0 PG) 28.1 MCHC (33.0 - 37.0 G/DL) 33.3 RDW (11.5 - 14.5 %) 16.7 H Plt Count (130 - 400 /CUMM) 111 L MPV (7.4 - 10.4 FL) 9.9 Gran % (42.2 - 75.2 %) 80.5 H Lymphocytes % (20.5 - 51.1 %) 12.0 L Monocytes % (1.7 - 9.3 %) 6.8 Eosinophils % (0 - 5 %) 0.6 Basophils % (0.0 - 2.0 %) 0.1 Absolute Granulocytes (1.4 - 6.5 /CUMM) 3.0 Segmented Neutrophils (42.2 - 75.2 %) 67 Band Neutrophils (0.0 - 5.0 %) 6 H Absolute Lymphocytes (1.2 - 3.4 /CUMM) 0.4 L Lymphocytes (20.5 - 51.1 %) 24 Monocytes (1.7 - 9.3 %) 3 Absolute Monocytes (0.10 - 0.60 /CUMM) 0.3 Absolute Eosinophils (0.0 - 0.7 /CUMM) 0 Absolute Basophils (0.0 - 0.2 /CUMM) 0 Platelet Estimate (ADEQUATE) VERIFIED BY SMEAR Normochromic RBCs VERIFIED Assessment/Plan Hematology Assessment/Recommendations: Mr. Nichols is a 52-year-old male with HTN, HLD, atrial fibrillation, and CLL s/pc FCR and currently on ibrutinib (on hold for over 2 weeks due to elevated LFT) who presented to the ER for fever, malaise, and coughing. On presentation, he is noted to be febrile. CXR concerning for RML/RLL pneumonia. Urine legionella antigen was positive. This may be new infection or previous. Given symptoms, he was seen by ID and was started on levofloxacin. His EUGENE has resolved. His CBC demonstrated decrease in all cell lines which suggest possible dilution. He can be monitored for now. LFT is improved slightly. If this remains elevated, he may benefit from GI evaluation. His CLL seems stable. I will continue to hold his ibrutinib. RML/RLL Pneumonia: -continue antibiotics as per primary and ID -follow up cultures Elevated LFT: -limit hepatotoxic medication -may need GI evaluation if persistent CLL: -continue to hold ibrutinib Please call [phone] with any questions or concerns. Problem List: 1. Transaminitis 2. EUGENE (acute kidney injury) 3. Pneumonia 4. CLL (chronic lymphocytic leukemia)
--- NOTE | 2018-01-03 08:58 | PN- Housestaff ---
See Addendum Subjective Follow-up For: RML/RLL Pneumonia Complaints: no complaints Subjective: Patient was febrile overnight with Tmax 102.7. He reports feeling better with decreased cough and sputum production. He denies chills, n/v/d, chest pain, SOB , abd. pain. Review of Systems Constitutional: Reports: see HPI. Objective Last 24 Hrs of Vital Signs/I&O Vital Signs Date Time Temp Pulse Resp B/P B/P Pulse O2 O2 Flow FiO2 Mean Ox Delivery Rate 01/03 0651 98.7 78 18 180/110 92 Room Air 01/03 0219 98.6 / 0000 95 Room Air 01/02 2230 100.5 / 2221 100.5 01/02 2149 102.2 105 20 136/86 95 / 2135 102.7 / 2100 102.7 01/02 1500 99.5 90 22 120/80 98 / 1028 Room Air 01/02 0918 99.4 Intake & Output 01/03 1600 01/03 0800 01/03 0000 Intake Total 480 510 Output Total 600 Balance 480 -90 Intake, IV 10 Intake, Oral 480 500 Number 0 Bowel Movements Output, Urine 600 Patient 215 lb Weight Weight Bed scale Measurement Method Physical Exam General Appearance: Alert, Oriented X3, Cooperative, No Acute Distress Skin: No Rashes Skin Temp/Moisture Exam: Warm/Dry HEENT: Atraumatic, PERRLA Neck: Supple Cardiovascular: Regular Rate, Normal S1, Normal S2, No Murmurs Lungs: RML/RLL scattered crackles; improved from previous day Abdomen: Normal Bowel Sounds, Soft, No Tenderness Neurological: Normal Tone, Sensation Intact Extremities: No Edema, Normal Pulses Assessment/Plan Assessment: 52 year old male with PMH CLL treated by Dr. Valdovinos with ibruitinib (being held for two weeks now 2/2 elevated LFTs), HTN, HLD, pAfib on eliquis admitted for RML/RLL PNA with positive urine antigen for Legionella. Patien was diagnosed with Legionella PNA in October of this year and completed a treatment course. Unsure if current PNA is truly reinfection with Legionella vs CAP. Cultures are pending. Literature varies in time urine specimen can remain positive for legionella after original infection. #RML/RLL Pneumonia -Continue Levaquin abx per ID recs for 14 day course -culture results pending-will follow up and treat accordingly #chronic illness -continue home meds -restarted Sotolol 40mg BID per Cardiology recs -Will monitor LFTs per Hematology recs and refer for outpatient GI follow up if continued elevation DVT prophylaxis: Eliquis/ambulation Problem List: 1. CLL (chronic lymphocytic leukemia) 2. Pneumonia 3. Fever Pain Ratin Pain Location: none Pain Goal: Remain pain free Pain Plan: see a/p Tomorrow's Labs & Rationales: none
[2018-01-03 09:35] LABS: ABSOLUTE BASOPHIL COUNT 0 /CUMM (0.0-0.2); ABSOLUTE EOSINOPHIL COUNT 0.1 /CUMM (0.0-0.7); ABSOLUTE GRANULOCYTE CT 2.2 /CUMM (1.4-6.5); ABSOLUTE LYMPH COUNT 0.4 /CUMM (1.2-3.4); ABSOLUTE MONOCYTE COUNT 0.2 /CUMM (0.10-0.60); BASOPHIL % 0.3 % (0.0-2.0); EOSINOPHIL % 2.1 % (0-5); GRANULOCYTE % 75.8 % (42.2-75.2); HEMATOCRIT 31.7 % (42-52); MEAN CORPUSCULAR HGB CONC 33.3 G/DL (33.0-37.0); MEAN PLATELET VOLUME 9.2 FL (7.4-10.4); PLATELET COUNT 147 /CUMM (130-400); RBC DISTRIBUTION WIDTH 17.3 % (11.5-14.5); RED BLOOD CELL CT 3.77 /CUMM (4.70-6.10)
--- NOTE | 2018-01-03 11:12 | PN- Infect Dx ---
Subjective Subjective: T-max 102.7. He feels well with no shortness of breath or chest pain. He continues to have a productive cough, with yellow/whitish sputum Objective Last 24 Hrs of Vital Signs/I&O Vital Signs Date Time Temp Pulse Resp B/P B/P Pulse O2 O2 Flow FiO2 Mean Ox Delivery Rate 01/03 906 98 164/108 01/03 0651 98.7 78 18 180/110 92 Room Air 01/03 0219 98.6 01/03 0000 95 Room Air 01/02 2230 100.5 01/02 2221 100.5 01/02 2149 102.2 105 20 136/86 95 01/02 2135 102.7 01/02 2100 102.7 01/02 1500 99.5 90 22 120/80 98 Intake & Output 01/03 1600 01/03 0800 01/03 0000 Intake Total 480 510 Output Total 600 Balance 480 -90 Intake, IV 10 Intake, Oral 480 500 Number 0 Bowel Movements Output, Urine 600 Patient 216 lb 215 lb Weight Weight Bed scale Measurement Method Physical Exam Other Physical Findings: He appears comfortable in no acute distress Lungs crackles on the right Heart regular rhythm without murmur Extremities no cyanosis, clubbing or edema Results Last 24 Hours of Lab Results: Laboratory Tests 01/03 0648 Chemistry Sodium (137 - 145 mmol/L) 134 L Potassium (3.5 - 5.1 mmol/L) 3.3 L Chloride (98 - 107 mmol/L) 95 L Carbon Dioxide (22 - 30 mmol/L) 27 Anion Gap (5 - 16) 12 BUN (9 - 20 mg/dL) 15 Creatinine (0.7 - 1.2 mg/dL) 0.8 Estimated GFR (>60 ml/min) > 60 BUN/Creatinine Ratio (7 - 25 %) 18.8 Magnesium (1.6 - 2.3 mg/dL) 1.5 L Total Bilirubin (0.2 - 1.3 mg/dL) 0.8 Direct Bilirubin (< 0.4 mg/dL) 0.6 H AST (17 - 59 U/L) 170 H ALT (21 - 72 U/L) 134 H Alkaline Phosphatase (< 127 U/L) 314 H Total Protein (6.3 - 8.2 g/dL) 4.3 L Albumin (3.5 - 5.0 g/dL) 2.4 L Hematology CBC w Diff MAN DIFF ORDERED WBC (4.8 - 10.8 /CUMM) 3.0 L RBC (4.70 - 6.10 /CUMM) 3.77 L Hgb (14.0 - 18.0 G/DL) 10.6 L Hct (42 - 52 %) 31.7 L MCV (80.0 - 94.0 FL) 84.0 MCH (27.0 - 31.0 PG) 28.0 MCHC (33.0 - 37.0 G/DL) 33.3 RDW (11.5 - 14.5 %) 17.3 H Plt Count (130 - 400 /CUMM) 147 MPV (7.4 - 10.4 FL) 9.2 Gran % (42.2 - 75.2 %) 75.8 H Lymphocytes % (20.5 - 51.1 %) 14.9 L Monocytes % (1.7 - 9.3 %) 6.9 Eosinophils % (0 - 5 %) 2.1 Basophils % (0.0 - 2.0 %) 0.3 Absolute Granulocytes (1.4 - 6.5 /CUMM) 2.2 Segmented Neutrophils (42.2 - 75.2 %) Pending Absolute Lymphocytes (1.2 - 3.4 /CUMM) 0.4 L Absolute Monocytes (0.10 - 0.60 /CUMM) 0.2 Absolute Eosinophils (0.0 - 0.7 /CUMM) 0.1 Absolute Basophils (0.0 - 0.2 /CUMM) 0 Last 24 Hours of Suhail Results: Blood cultures 2 January 01 negative Sputum culture January 01 mixed jimbo after one day Assessment/Plan ID Impression: Persistent fevers, now on Levaquin, begun this morning for multilobar pneumonia of the right lung, with the urine Legionella antigen positive, possibly representing a relapse from his previous infection 2 months prior to admission versus reinfection, possibly secondary to re-exposure to the initial source, versus a false positive test, as the urine antigen test can remain positive for several weeks to months. Suggestion: 1. Follow-up sputum PCR for Legionella 2. Continue Levaquin to plan on a 2 week course
[2018-01-03 13:15] VITALS: BP 136/90
[2018-01-03] MEDS ORDERED: LEVAQUIN250 M1 PO (14:49)
--- NOTE | 2018-01-03 14:52 | Patient Discharge Instructions ---
Discharge Instructions General Discharge Information You were seen/treated for: Legionella Watch for these problems: Fever, chest pain, shortness of breath Special Instructions: Please take all medications as directed. Please follow-up with primary care and oncology Diet Continue normal diet: Yes Activity Full Activity/No Limits: Yes Acute Coronary Syndrome Inclusion Criteria At DC or during hospital stay patient has or had the following: ACS DIAGNOSIS No Discharge Core Measures Meds if any: Prescribed or Continued at Discharge Meds if any: NOT Prescribed or Continued at Discharge Congestive Heart Failure Inclusion Criteria At DC or during hospital stay patient has or had the following: CHF DIAGNOSIS No Discharge Core Measures Meds if any: Prescribed or Continued at Discharge Meds if any: NOT Prescribed or Continued at Discharge Cerebrovascular accident Inclusion Criteria At DC or during hospital stay patient has or had the following: CVA/TIA Diagnosis No Discharge Core Measures Meds if any: Prescribed or Continued at Discharge Meds if any: NOT Prescribed or Continued at Discharge Venous thromboembolism Inclusion Criteria VTE Diagnosis No VTE Type NONE VTE Confirmed by (Test) NONE Discharge Core Measures - Per Current guidelines, there needs to be overlap - treatment for the first 5 days of Warfarin therapy. - If discharged on Warfarin prior to 5 days of - overlap therapy, the patient will need to be - assessed for post discharge needs including - *Post discharge parental anticoagulation - *Warfarin and/or parental anticoagulation education - *Follow up date to check INR post discharge At least 5 days overlap therapy as Inpatient No Meds if any: Prescribed or Continued at Discharge Note: Overlap Therapy is Warfarin and Anticoagulant Meds if any: NOT Prescribed or Continued at Discharge
[2018-01-03 21:18] VITALS: BP 140/88
[2018-01-04 06:30] VITALS: BP 166/110
[2018-01-04 08:27] LABS: ABSOLUTE BASOPHIL COUNT 0 /CUMM (0.0-0.2); ABSOLUTE EOSINOPHIL COUNT 0.1 /CUMM (0.0-0.7); ABSOLUTE LYMPH COUNT 0.4 /CUMM (1.2-3.4); ABSOLUTE MONOCYTE COUNT 0.2 /CUMM (0.10-0.60); BASOPHIL % 0.2 % (0.0-2.0); EOSINOPHIL % 3.6 % (0-5); GRANULOCYTE % 73.9 % (42.2-75.2); HEMATOCRIT 33.3 % (42-52); MEAN CORPUSCULAR HGB 27.7 PG (27.0-31.0); MEAN CORPUSCULAR VOLUME 83.9 FL (80.0-94.0); PLATELET COUNT 200 /CUMM (130-400); RED BLOOD CELL CT 3.97 /CUMM (4.70-6.10); WHITE BLOOD CELL COUNT 2.7 /CUMM (4.8-10.8)
--- NOTE | 2018-01-04 08:32 | PN- Housestaff ---
See Addendum Subjective Follow-up For: RML/RLL pneumonia Complaints: bed is not comfortable Subjective: Patient states he is much improved today. He states the bed is very uncomfortable and he cannot rest well. He continues to cough and have sputum production, but less than at time of admission. He has been afebrile overnight. He has been hypertensive to 166/110. He was restarted on Losartan overnight. He denies any vision changes, headache, chest pain, SOB, abd pain, n/v/d. Review of Systems Constitutional: Reports: see HPI. Objective Last 24 Hrs of Vital Signs/I&O Vital Signs Date Time Temp Pulse Resp B/P B/P Pulse O2 O2 Flow FiO2 Mean Ox Delivery Rate 01/04 0646 78 166/110 / 0630 98.7 78 16 166/110 95 Room Air / 0000 Room Air 01/03 2118 99.3 96 18 140/88 97 Room Air 01/03 1707 98.7 / 1558 Room Air 01/03 1315 98.8 78 136/90 95 Room Air Intake & Output 01/04 1600 /04 0800 / 0000 Intake Total 100 600 Output Total Balance 100 600 Intake, Oral 100 600 Physical Exam General Appearance: Alert, Oriented X3, Cooperative, No Acute Distress Skin: No Rashes Skin Temp/Moisture Exam: Warm/Dry HEENT: Atraumatic, PERRLA Neck: Supple Cardiovascular: Regular Rate, Normal S1, Normal S2, No Murmurs Lungs: improved from previous exam. Scattered crackles over RML/RLL. Other lung nicholas CTA Abdomen: Normal Bowel Sounds, Soft, No Tenderness, non distended Extremities: No Edema, Normal Pulses Assessment/Plan Assessment: 52 year old male with PMH significant for CLL being treated previously (two weeks ago) with Ibrutinib by Dr. Valdovinos, HTN, HLD, pAfib on eliquis admitted for RML/RLL PNA. Upon admission he was found to have positive urine antigen for legionella. He was previously dx and tx for legionella PNA in October of this year. It is unclear if urine antigen can remain positive this duration or if patient is reinfected. ID has been involved in his case and reported to the health department by ID. He has been recieving PO Levaquin since 7/3. Subjectively he feels improved. #RML/RLL PNA (suspicious reinfection with Legionella; positive urine antigen) -PO Levaquin for a total of 14 day course #Hypokalemia 3.4 -will replete with 40mEq bid -repeat labs in AM if still inpatient #Hypomagnesemia 1.4 -will replete with -repeat labs in AM if still inpatient #EUGENE-resolved -admission Cr 2.1 -/ 0.7 #chronic medical problems -continue home meds DVT prophylaxis: on eliquis/ ALPS/ ambulation Problem List: 1. Pneumonia 2. EUGENE (acute kidney injury) Pain Ratin Pain Location: none Pain Goal: Remain pain free Pain Plan: see a/p Tomorrow's Labs & Rationales: bep if still inpatient
[2018-01-04 11:50] VITALS: BP 140/80
--- NOTE | 2018-01-04 12:16 | Discharge Summary ---
Visit Information Visit Dates Admission Date: 01/01/18 Discharge Date: 01/04/18 Hospital Course Course Attending Physician: Odilon Hood MD Primary Care Physician: Mark Mello MD Hospital Course: Mr. Nichols is a 52 year old male with PMH significant for CLL being treated by Dr. Valdovinos with Imbruvica, HTN, HLD, recent history of Legionella pneumonia in October 2017. He was admitted for right middle lobe and right lower lobe pneumonia and EUGENE with Cr 2.1. He had a positive urine antigen for legionella. It was unclear if this was a reinfection or still positive from previous diagnosis with subsequent treatment regimen. Admission Data: On presentation, vital signs were T 97.7, HR 91, RR 18, BP 110/73, saturating 95 % room air. Laboratories are significant for hemoglobin 13.0, 7 bands, sodium 132, potassium 3.4, chloride 89, carbon dioxide 31, BUN 34, creatinine 2.1 ( baseline 0.7 pulse (, glucose 119, AST 325, ALT 204, alkaline phosphatase 272. Chest x-ray shows a right middle/lower lobe pneumonia. He was admitted to the [facility] floor for treatment of the following problems: 1. Right Middle Lobe and Right Lower Lobe Pneumonia 2. EUGENE 3. Electrolyte imbalance: hypokalemia and hypomagnesemia He was followed by the following specialist during his stay: 1.Infectious Disease: positive urine antigen for legionella was reported to the health department. He experienced intermittent fever during his stay as well has some electrolyte deficiencies. The fever resolved and his electrolytes were repleted. 2.Cardiology for the need of continued eliquis (history of pAfib) and sotolol administration in the setting of EUGENE. 3.Hematology Dr. Kevin for CLL who recommeded continued hold of imbruvica and will follow up as an outpatient. He was originally placed on Ceftriaxone and Azithromycin for PNA and then changed to Levaquin per ID recommendations to cover legionella if this is a re- infection situation. He remained stable throughout his hospital course, continued to improve clinically, and was afebrile for 24 hours before deciding to discharge him home. He will continue on the Levaquin 750mg PO daily for a total treatment course of 14 days per ID recommendations. He will restart all of his home medications. He will continue to follow up with his data entry assistant, court orderly, and PCP as an outpatient. Allergies: Coded Allergies: No Known Allergies (09/10/17) Disposition Summary Disposition Principal Diagnosis: Right middle and lower lobe Pneumonia Additional Diagnosis: possible legionella re-infection Discharge Disposition: home or self care Discharge Instructions General Discharge Information Code Status: Full Code Patient's Diet: regular Patient's Activity: as tolerated Follow-Up Instructions/Appts: Patient is to complete Levaquin 750mg PO daily for a total treatment course of 14 days. He will continue his home medications as prescribed. He will need to follow up with his court orderly, data entry assistant, and PCP upon discharge. Medications at Discharge Discharge Medications: Continue taking these medications: Losartan Potassium (Losartan Potassium) 50 MG TABLET 1 Tablet ORAL DAILY Qty = 90 Comments: Last Taken:01/04/18 Time:9AM Atorvastatin Calcium (Atorvastatin Calcium) 20 MG TABLET 1 Tablet ORAL DAILY Qty = 90 Comments: DID NOT RECEIVE WHILE IN HOSPITAL Escitalopram Oxalate (Escitalopram Oxalate) 5 MG TABLET 1 Tablet ORAL as needed for MENTAL HEALTH Qty = 30 Comments: Last Taken:01/04/18 Time: 9:00 AM Azelastine HCl (Astepro) 205.5 MCG (0.15 %) SPRAY.PUMP 2 [place] Both sides of nose DAILY Qty = 30 Comments: DID NOT RECEIVE WHILE IN HOSPITAL Diltiazem HCl (Diltiazem 24HR ER) 120 MG CAP.ER.24H 1 Capsule ORAL DAILY Qty = 30 Comments: Last Taken:01/04/18 Time: 9:00 AM Apixaban (Eliquis) 5 MG TABLET 1 Tablet ORAL TWICE DAILY Qty = 60 Comments: Last Taken:01/04/18 Time: 9:00 AM Sotalol (Betapace) 80 MG TABLET 1 Tablet ORAL TWICE DAILY Start taking the following new medications: Levofloxacin (Levaquin) 250 MG TABLET 750 Milligram ORAL DAILY Qty = 12 No Refills Instructions: . Comments: Last Taken:01/04/18 Time:9AM Copies To: Riaz AMAYA,Mark Reyna MD,Herberth Attending MD Review Statement Documenting Attending: Odilon Hood MD Other Findings: The patient was followed and plan as above- will need 2 week course of Levaquin. Need follow-up on urinary Legionella testing in ?2-3 weeks to see if stays positive.
[2018-01-04] MEDS ORDERED: LEVAQUIN250 M1 PO (12:51)
[2018-01-04 15:27] VITALS: BP 140/88
== END 2018-01-04 16:41 | DRG 194 ==
LOC: ERH 11:48 → ERHI 14:56 → 2NA 14:56 → ENRESERV 17:36 → ENTRNSPT 18:07 → EDTRNSPT 18:09 → EDTRNSPTSTS 18:09 → 2NA 18:23 → CMPTRNSPT 18:31 → 2NA 01-02 08:22 → ENPENDDIS 01-04 12:54 → 2NA 01-04 16:41
PROVIDERS: Internal Medicine; Physician Assistant
DX: J18.1 Lobar pneumonia, unspecified organism (principal); N17.9 Acute kidney failure, unspecified; C91.10 Chronic lymphocytic leukemia of B-cell type not having achieved remission; E87.1 Hypo-osmolality and hyponatremia; I10 Essential (primary) hypertension; E78.5 Hyperlipidemia, unspecified; Z79.01 Long term (current) use of anticoagulants; T50.995D Adverse effect of other drugs, medicaments and biological substances, subsequent encounter; R74.0 Nonspecific elevation of levels of transaminase and lactic acid dehydrogenase [LDH]; I48.0 Paroxysmal atrial fibrillation; E87.6 Hypokalemia; E86.0 Dehydration; A48.1 Legionnaires' disease
CPT/HCPCS: 2NAP; 36592; 71046; 82436; 87040; 87070; 87449; 87450; 93005; 93010; 96374; J0456; J0696; J7120